=== PATIENT | female | born 1950 | race Caucasian/White ===

== ENCOUNTER → 2017-03-02 | Outpatient (CLI) | payer BC, OTHER ==
[~2017-03-02] MED LIST: ALBU1AER9 PO; BIOT1CAP4 PO; CALCTAB65 PO; CMD5 PO; CYAN10002 IM; ERGO1CAP35 PO; HYDR1CAP85 PO; LPR25 PO; LPT/40 PO; MELA1TAB54 PO; METF1000 PO; PEDICHW50 PO; POLY IRON PO; PXL20 PO; SNG10 PO; TYL325X PO; ULT50X PO
[2017-03-02 18:07] LABS: THYROID STIMULATING HORMONE 3.87 uIu/ml (0.300-4.500)
== END | disposition home or self-care (01) ==
LOC: C.LABPBG 11:10
PROVIDERS: ATTEND Internal Medicine
DX: E05.90 Thyrotoxicosis, unspecified without thyrotoxic crisis or storm (principal)

== ENCOUNTER → 2017-03-09 | Outpatient (CLI) | payer BC, OTHER ==
[2017-03-09 16:58] LABS: PLATELET COUNT 284 K/uL (130-400); WHITE BLOOD COUNT 6.45 K/uL (4.8-10.8)
== END | disposition home or self-care (01) ==
LOC: C.LABPBG 11:20
PROVIDERS: ATTEND Internal Medicine
DX: E05.90 Thyrotoxicosis, unspecified without thyrotoxic crisis or storm (principal)

== ENCOUNTER → 2017-06-27 | Outpatient (CLI) | payer OTHER ==
[2017-06-27 12:42] LABS: BASO % 1.7 %; BASO ABS # 0.13 K/uL (0-0.2); COMPLETE YES; EOS % 2.5 %; HEMATOCRIT 30.5 % (37-47); IG% 0.1 %; LYMPH % 34.4 %; LYMPH ABS # 2.63 K/uL (1.2-3.4); MEAN CORPUSCULAR HEMOGLOBIN 30.1 pg (25-34); MEAN CORPUSCULAR HGB CONC 33.4 g/dl (32-36); MEAN PLATELET VOLUME 9.6 fL (7.4-10.4); MONO % 7.8 %; NEUT % 53.5 %; PLATELET COUNT 373 K/uL (130-400); RED BLOOD COUNT 3.39 M/uL (4.2-5.4); WHITE BLOOD COUNT 7.65 K/uL (4.8-10.8)
[2017-06-27 15:24] LABS: ALT/SGPT 35 U/L (12-78); AST/SGOT 49 U/L (15-37); BLOOD UREA NITROGEN 11 mg/dl (7-18); BUN/CREATININE RATIO 7.7 (10-20); CALCIUM 8.3 mg/dl (8.5-10.1); CARBON DIOXIDE 31 mmol/L (21-32); CHLORIDE 101 mmol/L (98-107); CREATININE 1.43 mg/dl (0.60-1.20); GLUCOSE 63 mg/dl (70-99); POTASSIUM 3.7 mmol/L (3.5-5.1); SODIUM 137 mmol/L (136-145)
== END ==
LOC: C.LAB1850 11:24
PROVIDERS: ATTEND Physician Assistant
DX: I48.91 Unspecified atrial fibrillation (principal); E78.00 Pure hypercholesterolemia, unspecified; I10 Essential (primary) hypertension; E11.9 Type 2 diabetes mellitus without complications; R07.89 Other chest pain; R60.9 Edema, unspecified; Z79.01 Long term (current) use of anticoagulants

== ENCOUNTER → 2017-07-10 | Outpatient (CLI) | payer OTHER ==
[2017-07-10 12:55] LABS: BLOOD UREA NITROGEN 13 mg/dl (7-18); BUN/CREATININE RATIO 12.9 (10-20); CALCIUM 8.1 mg/dl (8.5-10.1); CARBON DIOXIDE 34 mmol/L (21-32); CHLORIDE 101 mmol/L (98-107); CREATININE 0.97 mg/dl (0.60-1.20); GLUCOSE 77 mg/dl (70-99); POTASSIUM 3.5 mmol/L (3.5-5.1); SODIUM 137 mmol/L (136-145)
== END | disposition home or self-care (01) ==
LOC: C.LABPBG 10:31
PROVIDERS: ATTEND Physician Assistant
DX: R60.9 Edema, unspecified (principal)

== ENCOUNTER → 2017-07-13 | Outpatient (CLI) | payer OTHER ==
[~2017-07-13] MED LIST changes: +ACET-1693 PO; +CALCTAB7 PO; +CMD10 PO; +CRFL PO; +CYNI1000 IM; +ERGO500037 PO; +FURO-85 PO; +HYDR-3126 PO; +MISCCAP80 PO; +MONT1TAB3 PO; +MULT-506 PO; +OMEP40CA41 PO; +OXYC-609 PO; +SPIR25TA PO; +TEMA15CA4 PO; +TPRSR25 PO; +VNTHFA/IN INH; +WARF5TAB7 PO; +ZINC1TAB PO
--- NOTE | 2017-07-13 14:46 | DIAGNOSTIC IMAGING REPORT ---
CT HEAD WITHOUT CONTRAST (CT) CLINICAL HISTORY: W19.XXXA head pain status post trauma. Right-sided bruising. COMPARISON STUDY: 06/25/2014 TECHNIQUE: Axial CT of the brain is performed from the vertex to the skull base. IV contrast was not administered for this examination. A dose lowering technique was utilized adhering to the principles of ALARA. CT DOSE: 638.56 mGycm FINDINGS: No intra or extra-axial mass lesions are visualized. There is no CT evidence of acute cortical infarction. There is no evidence of midline shift. There is no acute hemorrhage. No calvarial fractures are visualized. There are minimal white matter hypodensities likely on a small vessel basis. There is no evidence of pathologic ventricular dilatation. There is no evidence of acute sinusitis. There is mild right periorbital edema. IMPRESSION: 1. Mild right periorbital edema 2. No acute intracranial findings. Electronically signed by: Prashanth Watkins M.D. 07/13/2017 2:44 PM Dictated Date/Time: 07/13/2017 2:42 PM
== END | disposition home or self-care (01) ==
LOC: C.CTS 14:22
PROVIDERS: ATTEND Physician Assistant
DX: H05.221 Edema of right orbit (principal); W19.XXXA Unspecified fall, initial encounter

== ENCOUNTER → 2017-08-02 | Outpatient (CLI) | payer OTHER ==
[~2017-08-02] MED LIST changes: -ACET-1693 PO; -CALCTAB7 PO; -CMD10 PO; -CRFL PO; -CYNI1000 IM; -ERGO500037 PO; -FURO-85 PO; -HYDR-3126 PO; -MISCCAP80 PO; -MONT1TAB3 PO; -MULT-506 PO; -OMEP40CA41 PO; -OXYC-609 PO; -SPIR25TA PO; -TEMA15CA4 PO; -TPRSR25 PO; -VNTHFA/IN INH; -WARF5TAB7 PO; -ZINC1TAB PO
[2017-08-02 18:17] LABS: BLOOD UREA NITROGEN 14 mg/dl (7-18); BUN/CREATININE RATIO 12.1 (10-20); CALCIUM 8.4 mg/dl (8.5-10.1); CARBON DIOXIDE 33 mmol/L (21-32); CHLORIDE 100 mmol/L (98-107); CREATININE 1.14 mg/dl (0.60-1.20); GLUCOSE 70 mg/dl (70-99); POTASSIUM 3.2 mmol/L (3.5-5.1); SODIUM 138 mmol/L (136-145)
== END | disposition home or self-care (01) ==
LOC: C.LABPBG 10:58
PROVIDERS: ATTEND Physician Assistant
DX: R60.9 Edema, unspecified (principal)

== ENCOUNTER → 2017-08-14 | Outpatient (CLI) | payer OTHER ==
[~2017-08-14] MED LIST changes: +REGADENOSON 0.4 MG/5 ML SYR ONE
[2017-08-14 12:31] LABS: ALBUMIN 2.9 gm/dl (3.4-5.0); ALT/SGPT 45 U/L (12-78); AST/SGOT 50 U/L (15-37); BLOOD UREA NITROGEN 15 mg/dl (7-18); CALCIUM 8.6 mg/dl (8.5-10.1); CARBON DIOXIDE 35 mmol/L (21-32); CREATININE 1.23 mg/dl (0.60-1.20); GLUCOSE 83 mg/dl (70-99); POTASSIUM 3.4 mmol/L (3.5-5.1); SODIUM 139 mmol/L (136-145)
[2017-08-14 12:42] LABS: ALKALINE PHOSPHATASE 70 U/L (45-117); TOTAL PROTEIN 5.8 gm/dl (6.4-8.2)
--- NOTE | 2017-08-15 15:22 | MYOCARDIAL PERFUSION SCAN ---
ONE-DAY NUCLEAR MEDICINE TECHNETIUM-99M CARDIOLITE MYOCARDIAL PERFUSION SCAN CLINICAL HISTORY: This stress test is being performed because of a chest pain syndrome. COMPARISON: None. TECHNIQUE: TECHNIQUE: For the stress portion of the study, 32.2 mCi of Technetium 99 m Cardiolite IV was injected at 2:00 p.m. on 08/14/2017. Thirty minutes following the injection, imaging of the heart was performed in multiple projection. For the rest portion of the study, 10.7 mCi of Technetium 99 m Cardiolite was injected IV at 12:10 p.m. One hour following the injection, imaging of the heart was performed in the same projections. For the stress portion of the study, 0.4 mg of Lexiscan was injected intravenously as per protocol. The patient did not experience chest discomfort nor EKG changes. Following the study, the patient was hemodynamically stable without complaints. FINDINGS: The short axis, vertical long axis, and horizontal long axis images were reviewed in detail. There is normal myocardial perfusion at both stress and rest. This excludes a prior myocardial infarction and evidence of stress induced myocardial ischemia. Left ventricle demonstrates hyperdynamic systolic function with an ejection fraction of 72%. There are no wall motion abnormalities. CONCLUSIONS: 1. No scintigraphic evidence of a prior myocardial infarction or stress induced myocardial ischemia. 2. No Lexiscan induced chest pain. 3. No Lexiscan induced echocardiogram changes. 4. Hyperdynamic left ventricular systolic function without wall motion abnormality. Left ventricular ejection fraction is 72%.
== END | disposition home or self-care (01) ==
LOC: C.NUCL 11:13
PROVIDERS: ATTEND Physician Assistant
DX: E78.00 Pure hypercholesterolemia, unspecified (principal); I11.0 Hypertensive heart disease with heart failure; R60.9 Edema, unspecified; R07.89 Other chest pain; I50.32 Chronic diastolic (congestive) heart failure

== ENCOUNTER → 2017-08-23 | Outpatient (CLI) | payer OTHER ==
[~2017-08-23] MED LIST changes: -REGADENOSON 0.4 MG/5 ML SYR ONE
[2017-08-23 18:40] LABS: BLOOD UREA NITROGEN 20 mg/dl (7-18); CALCIUM 8.9 mg/dl (8.5-10.1); CARBON DIOXIDE 33 mmol/L (21-32); CREATININE 1.29 mg/dl (0.60-1.20); GLUCOSE 87 mg/dl (70-99); POTASSIUM 3.1 mmol/L (3.5-5.1); SODIUM 137 mmol/L (136-145)
== END | disposition home or self-care (01) ==
LOC: C.LABPBG 11:25
PROVIDERS: ATTEND Physician Assistant
DX: I50.32 Chronic diastolic (congestive) heart failure (principal)

== ENCOUNTER → 2017-08-30 | Outpatient (CLI) | payer OTHER ==
[2017-08-30 12:58] LABS: BLOOD UREA NITROGEN 22 mg/dl (7-18); CALCIUM 9.2 mg/dl (8.5-10.1); CARBON DIOXIDE 35 mmol/L (21-32); CREATININE 1.33 mg/dl (0.60-1.20); GLUCOSE 82 mg/dl (70-99); POTASSIUM 3.1 mmol/L (3.5-5.1); SODIUM 138 mmol/L (136-145)
== END | disposition home or self-care (01) ==
LOC: C.LABPBG 10:45
PROVIDERS: ATTEND Physician Assistant
DX: I50.32 Chronic diastolic (congestive) heart failure (principal)

== ENCOUNTER → 2017-09-06 | Outpatient (CLI) | payer OTHER ==
[2017-09-06 13:00] LABS: BLOOD UREA NITROGEN 26 mg/dl (7-18); CARBON DIOXIDE 34 mmol/L (21-32); CREATININE 1.57 mg/dl (0.60-1.20); GLUCOSE 87 mg/dl (70-99); POTASSIUM 3.4 mmol/L (3.5-5.1); SODIUM 138 mmol/L (136-145)
== END | disposition home or self-care (01) ==
LOC: C.LABPBG 08:22
PROVIDERS: ATTEND Physician Assistant
DX: I50.32 Chronic diastolic (congestive) heart failure (principal)

== ENCOUNTER 2017-09-16 13:36 | Inpatient (IN) | payer OTHER ==
[~2017-09-16] VITALS: Ht 157.5 cm; Wt 71.9 kg
[2017-09-16] MEDS ORDERED: SODIUM CHLORIDE 0.9% 1000ML 1,000 ML IV STA (14:59)
[2017-09-16] MEDS ORDERED: ONDANSETRON INJ 2 MG/ML 2 ML VIAL IV STA (14:59)
[2017-09-16] MEDS ORDERED: MoRPHine SULFATE 10 MG/ML CARP/VIAL IV STA (15:00)
[2017-09-16] MEDS ORDERED: OPTIRAY 320 IV PRN (15:15)
[2017-09-16] MEDS ORDERED: CALCTAB7 PO (15:20)
[2017-09-16] MEDS ORDERED: OXYC-609 PO (15:20)
[2017-09-16] MEDS ORDERED: FURO-85 PO (15:20)
[2017-09-16] MEDS ORDERED: WARF5TAB7 PO ×2 (15:20)
[2017-09-16] MEDS ORDERED: TEMA15CA4 PO (15:20)
[2017-09-16] MEDS ORDERED: CYNI1000 IM (15:20)
[2017-09-16] MEDS ORDERED: SPIR25TA PO (15:20)
[2017-09-16] MEDS ORDERED: OMEP40CA41 PO (15:20)
[2017-09-16] MEDS ORDERED: MULT-506 PO (15:20)
[2017-09-16] MEDS ORDERED: ACET-1693 PO (15:20)
[2017-09-16] MEDS ORDERED: MISCCAP80 PO (15:20)
[2017-09-16] MEDS ORDERED: ZINC1TAB PO (15:20)
[2017-09-16] MEDS ORDERED: MONT1TAB3 PO (15:20)
[2017-09-16] MEDS ORDERED: CRFL PO (15:20)
[2017-09-16] MEDS ORDERED: VNTHFA/IN INH (15:20)
[2017-09-16] MEDS ORDERED: HYDR-3126 PO (15:20)
[2017-09-16] MEDS ORDERED: ERGO500037 PO (15:20)
[2017-09-16 15:24] LABS: BASO % 0.1 %; BASO ABS # 0.01 K/uL (0-0.2); HEMATOCRIT 36.2 % (37-47); IG# 0.05 K/uL (0.00-0.02); LYMPH % 13.4 %; LYMPH ABS # 1.84 K/uL (1.2-3.4); MEAN CORPUSCULAR HEMOGLOBIN 28.8 pg (25-34); MEAN CORPUSCULAR HGB CONC 33.1 g/dl (32-36); MEAN PLATELET VOLUME 9.3 fL (7.4-10.4); MONO % 4.5 %; MONO ABS # 0.62 K/uL (0.11-0.59); NEUT % 81.6 %; NEUT ABS # 11.18 K/uL (1.4-6.5); PLATELET COUNT 321 K/uL (130-400); RED CELL DISTRIBUTION WIDTH SD 44.3 fL (36.4-46.3)
[2017-09-16 15:50] LABS: ALBUMIN 3.3 gm/dl (3.4-5.0); CALCIUM 8.8 mg/dl (8.5-10.1); CREATININE 1.25 mg/dl (0.60-1.20); POTASSIUM 4.1 mmol/L (3.5-5.1)
[2017-09-16 15:53] LABS: TOTAL PROTEIN 6.9 gm/dl (6.4-8.2)
--- NOTE | 2017-09-16 16:45 | DIAGNOSTIC IMAGING REPORT ---
ABD/PELVIS IV CONTRAST ONLY CT DOSE: 343.72 mGy.cm HISTORY: Pain diffuse abd pain previous gastric byopass TECHNIQUE: Multiaxial CT images of the abdomen and pelvis were performed following the use of intravenous contrast. A dose lowering technique was utilized adhering to the principles of ALARA. COMPARISON STUDY: None. FINDINGS: Trace amount pleural fluid both lung bases. Lung bases otherwise are clear. Liver is uniform in terms of enhancement. The kidneys enhance uniformly. Spleen is unremarkable. There are findings of a prior gastric bypass type procedure. There is mild gastric distention. There is distention of the small bowel extending to a region of edematous and/or postoperative change along the anterior abdominal wall inferior to the umbilicus. There is no evidence for well-defined hernia although the possibility of adhesions must be considered. The more distal aspect of the small bowel shows mild hyperemia which may be indicative of a nonspecific enteritis. It does not appear to be distended. Colon is relatively collapsed. There may be a trace amount of free fluid within the pelvic cul-de-sac and to a lesser extent paracolic gutter regions. There does not appear to be evidence for a vascular rotational anomaly. Bladder is midline. IMPRESSION: 1. Findings consistent with distal small bowel obstruction. 2. Distention of the small bowel proximal to the region of obstruction near the anterior wall of the soft tissue pelvis. 3. Edematous change of the anterior abdominal wall raising the possibility of adhesions or a small nonvisualized fat-containing hernia. This region is specifically anterior to the symphysis pubis and slightly left lateral in location. 4. Trace pleural fluid both lung bases. 5. Findings consistent with a gastric bypass type procedure. Mild/moderate gastric distention. The above report was generated using voice recognition software. It may contain grammatical, syntax or spelling errors. Electronically signed by: Sean Tejeda M.D. 09/16/2017 4:44 PM Dictated Date/Time: 09/16/2017 4:39 PM
[2017-09-16] MEDS ORDERED: TPRSR25 PO (17:23)
[2017-09-16] MEDS ORDERED: hydrOXYzine HCL 25 MG TAB PO PRN (17:30)
[2017-09-16] MEDS ORDERED: ALBUTEROL HFA 8 GM INHALER INH PRN (17:30)
[2017-09-16] MEDS ORDERED: METOPROLOL TARTRATE 1 MG/ML VIAL IV PRN (17:30)
[2017-09-16] MEDS ORDERED: ACETAMINOPHEN 325 MG TAB PO PRN (17:30)
--- NOTE | 2017-09-16 17:53 | DIAGNOSTIC IMAGING REPORT ---
KUB CLINICAL HISTORY: NG tube placement tube position COMPARISON STUDY: No previous studies for comparison. FINDINGS: Nasogastric tube placed in the gastric fundus. IMPRESSION: Nasogastric tube placed in the gastric fundus. The above report was generated using voice recognition software. It may contain grammatical, syntax or spelling errors. Electronically signed by: Sean Tejeda M.D. 09/16/2017 5:52 PM Dictated Date/Time: 09/16/2017 5:51 PM
--- NOTE | 2017-09-16 17:55 | History and Physical ---
History & Physical Date & Time of Service: Sep 16, 2017 at 17:14 Chief Complaint: Dehydrated Primary Care Physician: Adrian Leung M.D. History of Present Illness Source: patient Ms. Wood is a 67 year old woman here for sbo. She was having severe belly pain last Sunday and then she was unable to eat much. She tried miralax feeling like she was constipated with some success. She then became unable to eat and started vomiting in the last few days. She has never had a history of sbo in the past. She has recently had trouble swallowing and was to see GI in [place] soon to follow up with this. ROS Constitutional: no chills, aches, sweats or fever Respiratory: no sob,cough, sputum, or wheezing Cardiac: no chest pain, palpitations, edema, orthopnea or lightheadedness GI: no abdominal pain, nausea, vomiting, diarrhea or constipation : no dysuria or hesitancy Extremities: no joint pain or weakness Skin: no rash All other systems reviewed and negative Past Medical/Surgical History PMH: History of marginal peptic ulcers Permanent atrial fibrillation Long-term anticoagulation with Coumadin History of thyroid nodule now status post partial thyroidectomy Asthma Diabetes mellitus type 2 Hypertension Hyperlipidemia Chronic diastolic CHF CKD stage II-III Anxiety disorder NOS B12 deficiency Iron deficiency anemia-has received IV iron infusions Insomnia PSH: S/P knee replacement Gastric bypass Partial thyroidectomy Family History Cancer Diabetes mellitus Social History Smoking Status: Never Smoker Alcohol Use: none Drug Use: none Marital Status: Housing status: lives with significant other 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) Immunizations History of Influenza Vaccine: Yes History of Tetanus Vaccine?: No History of Pneumococcal: Yes History of Hepatitis B Vaccine: No Allergies Coded Allergies: Amoxicillin (Verified Allergy, Intermediate, RASH, 07/23/14) Clavulanic Acid (Verified Allergy, Intermediate, RASH, 07/23/14) Ibuprofen (Verified Allergy, Mild, ITCHING, 07/23/14) Penicillins (Verified Allergy, Mild, ITCHING, 07/23/14) Home Medications Scheduled Atorvastatin (Lipitor), 40 MG PO DAILY Biotin (Biotin), 1 CAP PO DAILY Calcium Carbonate-Vitamin D W/ (Caltrate 600 Plus), 1 TAB PO BID Cyanocobalamin (Cyanocobalamin), 1 ML IM MONTHLY Ergocalciferol (Vitamin D 13822 Unit), 50,000 UNIT PO WK Furosemide (Lasix), 20 MG PO DAILY Metformin Hcl (Glucophage), 1,000 MG PO HS Metoprolol Succinate (Metoprolol Succinate ER), 25 MG PO DAILY Montelukast Sodium (Singulair), 10 MG PO DAILY Multivitamin (Multivitamin), 1 TAB PO DAILY Omeprazole (Prilosec), 40 MG PO BID Paroxetine (Paroxetine HCl), 30 MG PO DAILY Probiotic Product (Probiotic), 1 CAP PO DAILY Spironolactone (Aldactone), 25 MG PO DAILY Sucralfate (Carafate), 10 ML PO QID Temazepam (Restoril), 15 MG PO HS Warfarin Sod (Jantoven), 7.5 MG PO 5XWK Warfarin Sod (Jantoven), 10 MG PO 2XWK Zinc Gluconate (Zinc), 50 MG PO DAILY Scheduled PRN Acetaminophen Tab (Tylenol), 650 MG PO Q4H PRN for Pain Albuterol Hfa (Ventolin Hfa), 2 PUFFS INH Q6H PRN for Shortness of Breath Hydroxyzine Hcl (Atarax), 50 MG PO TID PRN for Anxiety Oxycodone HCl (Oxycodone HCl), 5 MG PO QID PRN for Pain Physical Exam Vital Signs Date Time Temp Pulse Resp B/P (MAP) Pulse Ox O2 Delivery O2 Flow Rate FiO2 09/16/17 15:27 79 16 112/78 97 09/16/17 13:57 36.2 105 20 125/77 96 Room Air General: no distress Eyes: normal inspection, PERLL Respiratory: chest non tender, clear to auscultation, normal breath sounds, no respiratory distress, no accessory muscle use Cardiac: irregular rate and rhythm, no rub or gallop, no murmur, no edema, no jvd GI/: active tympanic bowel sounds, tender to palpation,firm, distended Extremities: normal range of motion, normal strength, non tender Neuro/Psych: alert and oriented x 3, normal mood and affect Skin: normal color, dry Diagnostics Laboratory Results Results Past 24 Hours Test 09/16/17 15:15 Range/Units White Blood Count 13.70 4.8-10.8 K/uL Red Blood Count 4.16 4.2-5.4 M/uL Hemoglobin 12.0 12.0-16.0 g/dL Hematocrit 36.2 37-47 % Mean Corpuscular Volume 87.0 80-100 fL Mean Corpuscular Hemoglobin 28.8 25-34 pg Mean Corpuscular Hemoglobin Concent 33.1 32-36 g/dl Platelet Count 321 130-400 K/uL Mean Platelet Volume 9.3 7.4-10.4 fL Neutrophils (%) (Auto) 81.6 % Lymphocytes (%) (Auto) 13.4 % Monocytes (%) (Auto) 4.5 % Eosinophils (%) (Auto) 0.0 % Basophils (%) (Auto) 0.1 % Neutrophils # (Auto) 11.18 1.4-6.5 K/uL Lymphocytes # (Auto) 1.84 1.2-3.4 K/uL Monocytes # (Auto) 0.62 0.11-0.59 K/uL Eosinophils # (Auto) 0.00 0-0.5 K/uL Basophils # (Auto) 0.01 0-0.2 K/uL RDW Standard Deviation 44.3 36.4-46.3 fL RDW Coefficient of Variation 14.0 11.5-14.5 % Immature Granulocyte % (Auto) 0.4 % Immature Granulocyte # (Auto) 0.05 0.00-0.02 K/uL Sodium Level 133 136-145 mmol/L Potassium Level 4.1 3.5-5.1 mmol/L Chloride Level 95 98-107 mmol/L Carbon Dioxide Level 29 21-32 mmol/L Anion Gap 9.0 3-11 mmol/L Blood Urea Nitrogen 39 7-18 mg/dl Creatinine 1.25 0.60-1.20 mg/dl Est Creatinine Clear Calc Drug Dose 42.3 ml/min Estimated GFR () 51.9 Estimated GFR (Non- 44.8 BUN/Creatinine Ratio 31.1 10-20 Random Glucose 151 70-99 mg/dl Calcium Level 8.8 8.5-10.1 mg/dl Total Bilirubin 1.1 0.2-1 mg/dl Direct Bilirubin 0.5 0-0.2 mg/dl Aspartate Amino Transf (AST/SGOT) 22 15-37 U/L Alanine Aminotransferase (ALT/SGPT) 21 12-78 U/L Alkaline Phosphatase 75 45-117 U/L Total Protein 6.9 6.4-8.2 gm/dl Albumin 3.3 3.4-5.0 gm/dl Lipase 136 73-393 U/L Diagnostic Radiology [~ rep ct add3]] ABD/PELVIS IV CONTRAST ONLY CT DOSE: 343.72 mGy.cm HISTORY: Pain diffuse abd pain previous gastric byopass TECHNIQUE: Multiaxial CT images of the abdomen and pelvis were performed following the use of intravenous contrast. A dose lowering technique was utilized adhering to the principles of ALARA. COMPARISON STUDY: None. FINDINGS: Trace amount pleural fluid both lung bases. Lung bases otherwise are clear. Liver is uniform in terms of enhancement. The kidneys enhance uniformly. Spleen is unremarkable. There are findings of a prior gastric bypass type procedure. There is mild gastric distention. There is distention of the small bowel extending to a region of edematous and/or postoperative change along the anterior abdominal wall inferior to the umbilicus. There is no evidence for well-defined hernia although the possibility of adhesions must be considered. The more distal aspect of the small bowel shows mild hyperemia which may be indicative of a nonspecific enteritis. It does not appear to be distended. Colon is relatively collapsed. There may be a trace amount of free fluid within the pelvic cul-de-sac and to a lesser extent paracolic gutter regions. There does not appear to be evidence for a vascular rotational anomaly. Bladder is midline. IMPRESSION: 1. Findings consistent with distal small bowel obstruction. 2. Distention of the small bowel proximal to the region of obstruction near the anterior wall of the soft tissue pelvis. 3. Edematous change of the anterior abdominal wall raising the possibility of adhesions or a small nonvisualized fat-containing hernia. This region is specifically anterior to the symphysis pubis and slightly left lateral in location. 4. Trace pleural fluid both lung bases. 5. Findings consistent with a gastric bypass type procedure. Mild/moderate gastric distention. Impression Assessment and Plan Ms. Wood is a 67 year old woman here for sbo SBO - admit med/surg - consult gen surg - NG tube to low intermittent suction, NPO - pain control - IVF nss @75 ml/hr A.fib - per outpatient records, this is permanent A.fib - hold warfarin until seen by gen surg - may need reversed if she needs surgery - metoprolol IV prn while npo if hr not controlled. - INR, mag, phos pending Chronic diastolic chf - hold lasix for now while npo DMII - held metformin - ss, bsg ac &hs Asthma - continue home albuterol Full code SCDs Advanced Directives Existing Advance Directive: No Existing Living Will: No Existing Power of Fresh Work Inspector: No Resuscitation Status FULL RESUSCITATION Reviewed: Pt Seen/Exam by Me History PLANNER INTERN Supervision Note: I interviewed and examined the patient. Discussed with TWILA Richards and agree with findings and plan as documented in the note. Any exceptions or clarifications are listed here: This patient is a 67-year-old female with a history of gastric bypass surgery, marginal peptic ulcer disease, iron deficiency anemia, chronic diastolic CHF, hypertension, dyslipidemia, permanent atrial fibrillation on Coumadin, CKD stage II-III, diabetes mellitus type 2, who presents with burning central abdominal pain along with significant nausea, but not able to vomit. She has not passed flatus. She was found to have distal SBO on CT of the abdomen and pelvis. She reports her symptoms have been coming and going like this more prominently in the last week, but this has happened off and on in the last year. She had her gastric bypass surgery done at [facility] in [place] 10 years ago. She had an NG tube placed in the ER and is starting to feel a little bit better at the time of my exam. Of note, she was due to have a Pimentel device placed in her esophagus in 2 weeks which is for pH monitoring. Vitals reviewed, is mildly tachycardic Gen: AAOx3, appears ill, but is sitting up on the side of the bed HEENT: anicteric sclerae, EOMI CV: Irregularly irregular and tachycardic, no mgr nl S1S2 Pulm: CTAB no wcr Abd: + Hyperactive BS, soft, positive tenderness to palpation in the periumbilical and epigastric regions without guarding or rebound tenderness, ND , no masses or hernias palpable Ext: no edema, 2+ DP pulses Skin: no rashes, warm/dry Neuro: full strength throughout This patient is a 67-year-old female with a history of gastric bypass surgery, marginal peptic ulcer disease, iron deficiency anemia, chronic diastolic CHF, hypertension, dyslipidemia, permanent atrial fibrillation on Coumadin, CKD stage II-III, diabetes mellitus type 2, who presents with SBO. Given her history of gastric bypass, she could have an internal hernia causing her obstruction -Appreciate general surgery consultation-surgeon on-call was contacted by the ER doctor and is aware of the consult -Continue NG tube to low intermittent suction -Will discontinue all home p.o. medications -we will replace her beta-michael with IV metoprolol for rate control of her A. fib -Hold Coumadin in case of need for surgery, checked INR which is at 1.5 now and will follow again in the morning-she recently took a higher dose of Coumadin for a subtherapeutic INR 2 days ago -Change nightly temazepam p.o. to IV lorazepam to avoid withdrawal, change Protonix to IV especially given history of peptic ulcer disease -Follow CBC and suspect her hemoglobin will drop back to baseline around 10 after IV fluids -Continue IV fluids at 75/h and watch for hypervolemia given history of chronic diastolic CHF, holding home diuretics -SCDs for DVT prophylaxis Documented By: Stephanie Rodriguez
[2017-09-16 18:16] LABS: INR 1.5 (0.9-1.1)
[2017-09-16] MEDS ORDERED: LORAZEPAM 2 MG/ML 1 ML VIAL IV PRN (18:30)
[2017-09-16 18:32] LABS: PHOSPHORUS 4.7 mg/dl (2.5-4.9)
--- NOTE | 2017-09-16 19:21 | EMERGENCY ROOM VISIT NOTE ---
History Report prepared by Rosalind: Adam Keita Under the Supervision of: Dr. Burak Gillis D.O. First contact with patient: 14:37 Chief Complaint: ABDOMINAL PAIN Stated Complaint: DEHYDRATED Nursing Triage Summary: pateint with abdominal pain nausea and lack of appetite for a week. states she has not had a good bowel movment for a while. only small liquid stool. dry heaves and chills History of Present Illness The patient is a 67 year old female who presents to the Emergency Room with complaints of worsening sharp diffuse abdominal pain that began about 1 week ago. She rates her pain a 6/10 in severity. She has a past medical history of a gastric bypass and a complete hysterectomy. When her pain began, she thought that she was constipated. She took Miralax and a Dulcolax and was able to pass some gas which made her feel better. However, her pain then worsened throughout the week. She believes that her pain moved from the top of her abdomen down to her lower abdomen. She is currently nauseated and has been dry heaving without any true vomiting. She also has been having a lessened appetite, having not eaten in three days. She states that she is able to pass stool, but they have been softer than usual without any true diarrhea. Pt denies headache, change in vision, fevers, chest pain, shortness of breath, pain with urination, and melena. Source of History: patient Onset: 1 week ago Position: abdomen (diffuse) Symptom Intensity: 6/10 Quality: sharp Timing: worsening Associated Symptoms: + nausea, No fevers, No headache, No chest pain, No SOB , No vomiting, No melena, No diarrhea, No urinary symptoms Review of Systems See HPI for pertinent positives & negatives. A total of 10 systems reviewed and were otherwise negative. Past Medical & Surgical Medical Problems: (1) A-fib (2) Afib (3) Asthma (4) DM (diabetes mellitus) (5) HTN (hypertension) (6) SBO (small bowel obstruction) Surgical Problems: (1) S/P knee replacement Family History Cancer Diabetes mellitus Social History Smoking Status: Never Smoker Alcohol Use: none Drug Use: none Marital Status: Housing Status: lives with family Occupation Status: retired Current/Historical Medications Scheduled Atorvastatin (Lipitor), 40 MG PO DAILY Biotin (Biotin), 1 CAP PO DAILY Calcium Carbonate-Vitamin D W/ (Caltrate 600 Plus), 1 TAB PO BID Cyanocobalamin (Cyanocobalamin), 1 ML IM MONTHLY Ergocalciferol (Vitamin D 66282 Unit), 50,000 UNIT PO WK Furosemide (Lasix), 20 MG PO DAILY Metformin Hcl (Glucophage), 1,000 MG PO HS Metoprolol Succinate (Metoprolol Succinate ER), 25 MG PO DAILY Montelukast Sodium (Singulair), 10 MG PO DAILY Multivitamin (Multivitamin), 1 TAB PO DAILY Omeprazole (Prilosec), 40 MG PO BID Paroxetine (Paroxetine HCl), 30 MG PO DAILY Probiotic Product (Probiotic), 1 CAP PO DAILY Spironolactone (Aldactone), 25 MG PO DAILY Sucralfate (Carafate), 10 ML PO QID Temazepam (Restoril), 15 MG PO HS Warfarin Sod (Jantoven), 7.5 MG PO 5XWK Warfarin Sod (Jantoven), 10 MG PO 2XWK Zinc Gluconate (Zinc), 50 MG PO DAILY Scheduled PRN Acetaminophen Tab (Tylenol), 650 MG PO Q4H PRN for Pain Albuterol Hfa (Ventolin Hfa), 2 PUFFS INH Q6H PRN for Shortness of Breath Hydroxyzine Hcl (Atarax), 50 MG PO TID PRN for Anxiety Oxycodone HCl (Oxycodone HCl), 5 MG PO QID PRN for Pain Allergies Coded Allergies: Amoxicillin (Verified Allergy, Intermediate, RASH, 07/23/14) Clavulanic Acid (Verified Allergy, Intermediate, RASH, 07/23/14) Ibuprofen (Verified Allergy, Mild, ITCHING, 07/23/14) Penicillins (Verified Allergy, Mild, ITCHING, 07/23/14) Physical Exam Vital Signs Date Time Temp Pulse Resp B/P (MAP) Pulse Ox O2 Delivery O2 Flow Rate FiO2 09/16/17 18:54 102 18 108/85 95 09/16/17 17:26 93 09/16/17 17:19 89 18 129/81 94 Room Air 09/16/17 15:27 79 16 112/78 97 09/16/17 13:57 36.2 105 20 125/77 96 Room Air Physical Exam GENERAL: Sitting up in bed, alert, chronically ill appearing, well nourished, no distress, non-toxic EYE EXAM: normal conjunctiva. OROPHARYNX: no exudate, no erythema, lips, buccal mucosa, and tongue normal and mucous membranes are moist NECK: supple, no nuchal rigidity, no adenopathy, non-tender LUNGS: Clear to auscultation. Normal chest wall mechanics HEART: Tachycardic rate, regular rhythm, no murmurs, S1 normal and S2 normal ABDOMEN: abdomen soft, diffuse mild tenderness, normo-active bowel sounds, no masses, no rebound or guarding. RECTAL: Heme negative brown stool. BACK: Back is symmetrical on inspection and there is no deformity, no midline tenderness, no CVA tenderness. SKIN: no rashes and no bruising UPPER EXTREMITIES: upper extremities are grossly normal. LOWER EXTREMITIES: No pitting edema. NEURO EXAM: Normal sensorium, cranial nerves II-XII grossly intact, normal speech, no gross weakness of arms, no gross weakness of legs. Medical Decision & Procedures ER Provider Diagnostic Interpretation: Radiology results as stated below per my review and the radiologist's interpretation: ABD/PELVIS IV CONTRAST ONLY CT DOSE: 343.72 mGy.cm HISTORY: Pain diffuse abd pain previous gastric byopass TECHNIQUE: Multiaxial CT images of the abdomen and pelvis were performed following the use of intravenous contrast. A dose lowering technique was utilized adhering to the principles of ALARA. COMPARISON STUDY: None. FINDINGS: Trace amount pleural fluid both lung bases. Lung bases otherwise are clear. Liver is uniform in terms of enhancement. The kidneys enhance uniformly. Spleen is unremarkable. There are findings of a prior gastric bypass type procedure. There is mild gastric distention. There is distention of the small bowel extending to a region of edematous and/or postoperative change along the anterior abdominal wall inferior to the umbilicus. There is no evidence for well-defined hernia although the possibility of adhesions must be considered. The more distal aspect of the small bowel shows mild hyperemia which may be indicative of a nonspecific enteritis. It does not appear to be distended. Colon is relatively collapsed. There may be a trace amount of free fluid within the pelvic cul-de-sac and to a lesser extent paracolic gutter regions. There does not appear to be evidence for a vascular rotational anomaly. Bladder is midline. IMPRESSION: 1. Findings consistent with distal small bowel obstruction. 2. Distention of the small bowel proximal to the region of obstruction near the anterior wall of the soft tissue pelvis. 3. Edematous change of the anterior abdominal wall raising the possibility of adhesions or a small nonvisualized fat-containing hernia. This region is specifically anterior to the symphysis pubis and slightly left lateral in location. 4. Trace pleural fluid both lung bases. 5. Findings consistent with a gastric bypass type procedure. Mild/moderate gastric distention. The above report was generated using voice recognition software. It may contain grammatical, syntax or spelling errors. Electronically signed by: Sena Tejeda M.D. 09/16/2017 4:44 PM Dictated Date/Time: 09/16/2017 4:39 PM Laboratory Results 09/16/17 15:15 Red Blood Count 4.16, Mean Corpuscular Volume 87.0, Mean Corpuscular Hemoglobin 28.8, Mean Corpuscular Hemoglobin Concent 33.1, Mean Platelet Volume 9.3, Neutrophils (%) (Auto) 81.6, Lymphocytes (%) (Auto) 13.4, Monocytes (%) (Auto) 4.5, Eosinophils (%) (Auto) 0.0, Basophils (%) (Auto) 0.1, Neutrophils # (Auto) 11.18, Lymphocytes # (Auto) 1.84, Monocytes # (Auto) 0.62, Eosinophils # (Auto) 0.00, Basophils # (Auto) 0.01 09/16/17 15:15 Test 09/16/17 15:15 White Blood Count 13.70 K/uL (4.8-10.8) Red Blood Count 4.16 M/uL (4.2-5.4) Hemoglobin 12.0 g/dL (12.0-16.0) Hematocrit 36.2 % (37-47) Mean Corpuscular Volume 87.0 fL (80-100) Mean Corpuscular Hemoglobin 28.8 pg (25-34) Mean Corpuscular Hemoglobin Concent 33.1 g/dl (32-36) Platelet Count 321 K/uL (130-400) Mean Platelet Volume 9.3 fL (7.4-10.4) Neutrophils (%) (Auto) 81.6 % Lymphocytes (%) (Auto) 13.4 % Monocytes (%) (Auto) 4.5 % Eosinophils (%) (Auto) 0.0 % Basophils (%) (Auto) 0.1 % Neutrophils # (Auto) 11.18 K/uL (1.4-6.5) Lymphocytes # (Auto) 1.84 K/uL (1.2-3.4) Monocytes # (Auto) 0.62 K/uL (0.11-0.59) Eosinophils # (Auto) 0.00 K/uL (0-0.5) Basophils # (Auto) 0.01 K/uL (0-0.2) RDW Standard Deviation 44.3 fL (36.4-46.3) RDW Coefficient of Variation 14.0 % (11.5-14.5) Immature Granulocyte % (Auto) 0.4 % Immature Granulocyte # (Auto) 0.05 K/uL (0.00-0.02) Prothrombin Time 15.2 SECONDS (9.0-12.0) Prothromb Time International Ratio 1.5 (0.9-1.1) Anion Gap 9.0 mmol/L (3-11) Est Creatinine Clear Calc Drug Dose 42.3 ml/min Estimated GFR () 51.9 Estimated GFR (Non- 44.8 BUN/Creatinine Ratio 31.1 (10-20) Calcium Level 8.8 mg/dl (8.5-10.1) Phosphorus Level 4.7 mg/dl (2.5-4.9) Magnesium Level 1.6 mg/dl (1.8-2.4) Total Bilirubin 1.1 mg/dl (0.2-1) Direct Bilirubin 0.5 mg/dl (0-0.2) Aspartate Amino Transf (AST/SGOT) 22 U/L (15-37) Alanine Aminotransferase (ALT/SGPT) 21 U/L (12-78) Alkaline Phosphatase 75 U/L (45-117) Total Protein 6.9 gm/dl (6.4-8.2) Albumin 3.3 gm/dl (3.4-5.0) Lipase 136 U/L (73-393) Laboratory results per my review. Medications Administered Medications (Trade) Dose Ordered Sig/Taiwo Route Start Time Stop Time Status Last Admin Dose Admin Sodium Chloride 1,000 ml @ 999 mls/hr Q1H1M STAT IV 09/16/17 14:59 09/16/17 15:59 DC 2/11/18 15:25 999 MLS/HR Ondansetron HCl (Zofran Inj) 4 mg NOW STAT IV 09/16/17 14:59 09/16/17 15:01 DC 09/16/17 15:25 4 MG Morphine Sulfate (MoRPHine SULFATE INJ) 6 mg NOW STAT IV 09/16/17 15:00 09/16/17 15:01 DC 09/16/17 15:26 6 MG ED Course ED COURSE: Vital signs were reviewed and showed tachycardia The patients medical record was reviewed The above diagnostic studies were performed and reviewed. ED treatments and interventions as stated above. 1437: The patient was evaluated in room C9. A complete history and physical examination was performed. 1459: Ordered Zofran Inj 4 mg IV, Sodium Chloride 1000 ml @ 999 mls/hr IV 1500: Ordered Morphine Sulfate 6 mg IV 1702: Upon reevaluation, the patient is resting. I discussed my findings with the patient and she understands and agrees with the treatment plan. Based on the patients age, coexisting illnesses, exam and lab findings the decision to treat as an inpatient was made. The patient remained stable while under my care. The patient will be evaluated by Dr. Michael PONCE, for further management. Medical Decision Differential diagnoses includes but is not limited to gastritis, peptic ulcer disease, GERD, gallbladder disease, pancreatitis, small bowel obstruction, acute coronary syndrome, pericarditis, ischemic bowel, irritable bowel disease, irritable bowel syndrome, appendicitis, diverticulitis, malignancy, hernia, urinary tract infection, torsion, perforation, trauma, infectious. Patient is a 67-year-old female who presents to ER for abdominal pain which has been worsening since this past Sunday. Abdomen is distended. She does have diffuse tenderness. Labs show a mild leukocytosis. CT of the abdomen and pelvis shows distal small bowel obstruction. Discussed these findings with general surgery and internal medicine. NG tube was placed. KUB confirmed. Patient was given multiple doses of IV narcotics. Patient was admitted to internal medicine for further workup. Medication Reconcilliation Current Medication List: was personally reviewed by me Blood Pressure Screening Patient's blood pressure: Normal blood pressure Blood pressure disposition: Did not require urgent referral Consults Time Called: 1700 Consulting Physician: Dr. Michael PONCE Returned Call: 1702 I reviewed the patient's case with her. She will evaluate the patient for further management. Impression Primary Impression: Small bowel obstruction Scribe Attestation The scribe's documentation has been prepared under my direction and personally reviewed by me in its entirety. I confirm that the note above accurately reflects all work, treatment, procedures, and medical decision making performed by me. Departure Information Dispostion Being Evaluated By Hospitalist Prescriptions Metoprolol Succinate (Metoprolol Succinate ER) 25 Mg Tabcr 25 MG PO DAILY for 30 Days, #30 DOSE Prov: Thania Richards .TWILA 09/16/17 Referrals Adrian Leung M.D. (PCP) Patient Instructions My [facility]
[2017-09-16] MEDS ORDERED: MoRPHine SULFATE 4 MG/ML 1 ML CARP\\VIAL ONE (19:32)
[2017-09-16 20:05] VITALS: BP 126/76; PULSE 105; TEMP 36.9; O2SAT 95; Ht 157.5 cm; Wt 71.9 kg
[2017-09-16] MEDS ORDERED: INSULIN ASPART 100 UNITS/ML 3 ML PEN SC SCH (21:00)
[2017-09-16] MEDS ORDERED: TEMAZEPAM 15 MG CAP PO SCH (21:00)
[2017-09-16] MEDS ORDERED: SUCRALFATE 1 GM/10 ML UDC PO SCH (21:00)
[2017-09-16] MEDS ORDERED: NON-FORMULARY MEDICATION (Omeprazole (Prilosec) 40 MG) PO SCH (21:00)
[2017-09-16] MEDS ORDERED: CALCIUM 600MG + VIT D 400 IU TAB PO SCH (21:00)
[2017-09-16] MEDS: SODIUM CHLORIDE 0.9% 1000ML 1,000 ML IV SCH (21:28)
[2017-09-16] MEDS: PANTOprazole INJ 40 MG in SYRINGE 0 ML IV SCH (21:29)
[2017-09-16] MEDS ORDERED: NURSING DECISION MEDICATION ORDER SCH (23:30)
[2017-09-16] MEDS: MoRPHine SULFATE 2 MG/ML CARP IV PRN (23:35)
[2017-09-16] MEDS: METOPROLOL TARTRATE 1 MG/ML VIAL IV. SCH (23:36)
[2017-09-16] MEDS: INSULIN ASPART 100 UNITS/ML 3 ML PEN SC SCH (23:48)
[2017-09-17] VITALS (10 sets, daily range): BP systolic 100–146; BP diastolic 62–81; PULSE 74–118; TEMP 36.4–36.9; O2SAT 94–98
[2017-09-17] MEDS: MAGNESIUM SULFATE 1GM / D5W 1 GM in PREMIXED IN D5W 100 ML IV SCH ×2 (01:30→02:39)
[2017-09-17] MEDS: INSULIN ASPART 100 UNITS/ML 3 ML PEN SC SCH ×3 (05:59→18:00)
[2017-09-17] MEDS: METOPROLOL TARTRATE 1 MG/ML VIAL IV. SCH ×2 (06:00→12:28)
[2017-09-17] MEDS: MoRPHine SULFATE 2 MG/ML CARP IV PRN ×4 (06:07→21:21)
[2017-09-17 07:17] LABS: HEMATOCRIT 31.9 % (37-47); HEMOGLOBIN 10.6 g/dL (12.0-16.0); MEAN CELL VOLUME 86.7 fL (80-100); MEAN CORPUSCULAR HEMOGLOBIN 28.8 pg (25-34); MEAN CORPUSCULAR HGB CONC 33.2 g/dl (32-36); MEAN PLATELET VOLUME 9.7 fL (7.4-10.4); PLATELET COUNT 343 K/uL (130-400); RED CELL DISTRIBUTION WIDTH CV 14.1 % (11.5-14.5); RED CELL DISTRIBUTION WIDTH SD 44.6 fL (36.4-46.3); WHITE BLOOD COUNT 9.86 K/uL (4.8-10.8)
[2017-09-17 07:30] LABS: INR 1.5 (0.9-1.1)
[2017-09-17 07:46] LABS: CALCIUM 8.4 mg/dl (8.5-10.1); CREATININE 1.02 mg/dl (0.60-1.20); POTASSIUM 3.7 mmol/L (3.5-5.1)
[2017-09-17 07:49] LABS: PHOSPHORUS 3.9 mg/dl (2.5-4.9)
[2017-09-17] MEDS: PANTOprazole INJ 40 MG in SYRINGE 0 ML IV SCH (08:03)
[2017-09-17] MEDS ORDERED: NON-FORMULARY MEDICATION (Zinc Gluconate (Zinc) 50 MG) PO SCH (09:00)
[2017-09-17] MEDS ORDERED: MONTELUKAST SOD 10 MG TAB PO SCH ×2 (09:00→21:00)
[2017-09-17] MEDS ORDERED: ERGOCALCIFEROL 50,000 INTER.UNIT CAP PO SCH (09:00)
[2017-09-17] MEDS ORDERED: MULTIVITAMIN TAB PO SCH (09:00)
[2017-09-17] MEDS ORDERED: WARFARIN SOD 5 MG TAB PO SCH ×2 (09:00)
[2017-09-17] MEDS ORDERED: NON-FORMULARY MEDICATION (Probiotic Product (Probiotic) 1 CAP) PO SCH (09:00)
[2017-09-17] MEDS ORDERED: METOPROLOL SUCC 25MG EXT REL TAB PO SCH (09:00)
[2017-09-17] MEDS ORDERED: SPIRONOLACTONE 25 MG TAB PO SCH (09:00)
[2017-09-17] MEDS ORDERED: FUROSEMIDE 20 MG TAB PO SCH (09:00)
[2017-09-17] MEDS ORDERED: ATORVASTATIN 20 MG TAB PO SCH (09:00)
[2017-09-17] MEDS ORDERED: PAROXETINE 20 MG TAB PO SCH (09:00)
[2017-09-17 09:22] LABS: HEMOGLOBIN A1C 5.6 % (4.5-5.6)
--- NOTE | 2017-09-17 10:14 | Hospitalist Progress Note ---
Hospitalist Progress Note Date of Service Sep 17, 2017. Subjective Pt evaluation today including: conversation w/ patient, physical exam, chart review, review of inpatient medication list Voiding: no voiding problems Ms. Wood is feeling much better than yesterday. NG tube in place. Incontinent of large liquid bm early this morning. Abdomen dye range tender but less than yesterday. ROS Constitutional: no chills, aches, sweats or fever Respiratory: no sob,cough, sputum, or wheezing Cardiac: no chest pain, palpitations, edema, orthopnea or lightheadedness GI: see HPI : no dysuria or hesitancy Extremities: no joint pain or weakness Skin: no rash All other systems reviewed and negative Medications Medications (Trade) Dose Ordered Sig/Taiwo Route Start Time Stop Time Status Last Admin Dose Admin Sodium Chloride 1,000 ml @ 999 mls/hr Q1H1M STAT IV 09/16/17 14:59 09/16/17 15:59 DC 09/16/17 15:25 999 MLS/HR Ondansetron HCl (Zofran Inj) 4 mg NOW STAT IV 09/16/17 14:59 09/16/17 15:01 DC 09/16/17 15:25 4 MG Morphine Sulfate (MoRPHine SULFATE INJ) 6 mg NOW STAT IV 09/16/17 15:00 09/16/17 15:01 DC 09/16/17 15:26 6 MG Morphine Sulfate (MoRPHine SULFATE INJ) 2 mg Q4H PRN IV 09/16/17 17:45 09/30/17 17:44 09/17/17 06:07 2 MG Sodium Chloride 1,000 ml @ 75 mls/hr [id number] IV 09/16/17 22:00 10/16/17 21:59 09/16/17 21:28 75 MLS/HR Metoprolol Tartrate (Lopressor Iv) 5 mg Q6 IV. 09/17/17 00:00 10/17/17 00:00 09/17/17 06:00 5 MG Lorazepam (Ativan Inj) 1 mg HS PRN IV 09/16/17 18:30 10/16/17 18:29 09/16/17 21:40 1 MG Pantoprazole Sodium 40 mg/ Syringe 10 ml @ 5 mls/min DAILY@ IV 09/16/17 21:00 10/16/17 20:59 09/17/17 08:03 5 MLS/MIN Morphine Sulfate (MoRPHine SULFATE INJ) 4 mg STK-MED ONCE .ROUTE 09/16/17 19:32 09/16/17 19:33 DC 09/16/17 19:36 4 MG Magnesium Sulfate 1 gm/Prmx 100 ml @ 100 mls/hr Q1H IV 09/17/17 00:45 09/17/17 02:44 DC 09/17/17 02:39 100 MLS/HR Objective Vital Signs Date Time Temp Pulse Resp B/P (MAP) Pulse Ox O2 Delivery O2 Flow Rate FiO2 09/17/17 08:04 36.4 87 17 100/62 (75) 95 Room Air 09/17/17 08:00 96 Room Air 09/17/17 06:00 82 109/73 09/17/17 04:00 Room Air 09/17/17 03:47 36.9 118 18 110/73 (85) 96 09/17/17 00:05 36.9 118 18 146/81 (102) 97 Room Air 09/16/17 23:59 Room Air 09/16/17 23:36 118 146/81 09/16/17 20:05 36.9 105 20 126/76 95 Room Air 09/16/17 19:54 85 20 121/59 95 09/16/17 19:50 36.9 91 22 122/72 95 Room Air 09/16/17 18:54 102 18 108/85 95 09/16/17 17:26 93 09/16/17 17:19 89 18 129/81 94 Room Air 09/16/17 15:27 79 16 112/78 97 09/16/17 13:57 36.2 105 20 125/77 96 Room Air Physical Exam Notes: General: no distress Eyes: normal inspection, PERLL Respiratory: chest non tender, clear to auscultation, normal breath sounds, no respiratory distress, no accessory muscle use Cardiac: regular rate and rhythm, no rub or gallop, no murmur, no edema, no jvd GI/: active tympanic bowel sounds, mild tenderness, softer than yesterday but still some distention Extremities: normal range of motion, normal strength, non tender Neuro/Psych: alert and oriented x 3, normal mood and affect Skin: normal color, dry Laboratory Results Last 24 Hours Test 09/16/17 15:15 09/16/17 20:46 09/16/17 23:34 09/16/17 23:45 White Blood Count 13.70 K/uL Red Blood Count 4.16 M/uL Hemoglobin 12.0 g/dL Hematocrit 36.2 % Mean Corpuscular Volume 87.0 fL Mean Corpuscular Hemoglobin 28.8 pg Mean Corpuscular Hemoglobin Concent 33.1 g/dl Platelet Count 321 K/uL Mean Platelet Volume 9.3 fL Neutrophils (%) (Auto) 81.6 % Lymphocytes (%) (Auto) 13.4 % Monocytes (%) (Auto) 4.5 % Eosinophils (%) (Auto) 0.0 % Basophils (%) (Auto) 0.1 % Neutrophils # (Auto) 11.18 K/uL Lymphocytes # (Auto) 1.84 K/uL Monocytes # (Auto) 0.62 K/uL Eosinophils # (Auto) 0.00 K/uL Basophils # (Auto) 0.01 K/uL RDW Standard Deviation 44.3 fL RDW Coefficient of Variation 14.0 % Immature Granulocyte % (Auto) 0.4 % Immature Granulocyte # (Auto) 0.05 K/uL Prothrombin Time 15.2 SECONDS Prothromb Time International Ratio 1.5 Sodium Level 133 mmol/L Potassium Level 4.1 mmol/L Chloride Level 95 mmol/L Carbon Dioxide Level 29 mmol/L Anion Gap 9.0 mmol/L Blood Urea Nitrogen 39 mg/dl Creatinine 1.25 mg/dl Est Creatinine Clear Calc Drug Dose 42.3 ml/min Estimated GFR () 51.9 Estimated GFR (Non- 44.8 BUN/Creatinine Ratio 31.1 Random Glucose 151 mg/dl Calcium Level 8.8 mg/dl Phosphorus Level 4.7 mg/dl Magnesium Level 1.6 mg/dl Total Bilirubin 1.1 mg/dl Direct Bilirubin 0.5 mg/dl Aspartate Amino Transf (AST/SGOT) 22 U/L Alanine Aminotransferase (ALT/SGPT) 21 U/L Alkaline Phosphatase 75 U/L Total Protein 6.9 gm/dl Albumin 3.3 gm/dl Lipase 136 U/L Bedside Glucose 132 mg/dl 112 mg/dl Urine Color YELLOW Urine Appearance CLEAR Urine pH 5.0 Urine Specific Champion > 1.045 Urine Protein TRACE Urine Glucose (UA) NEG Urine Ketones 1+ Urine Occult Blood NEG Urine Nitrite NEG Urine Bilirubin NEG Urine Urobilinogen NEG Urine Leukocyte Esterase NEG Urine WBC (Auto) 1-5 /hpf Urine RBC (Auto) 0-4 /hpf Urine Hyaline Casts (Auto) 0 /lpf Urine Epithelial Cells (Auto) 10-20 /lpf Urine Bacteria (Auto) NEG Test 09/17/17 05:58 09/17/17 06:23 Bedside Glucose 115 mg/dl White Blood Count 9.86 K/uL Red Blood Count 3.68 M/uL Hemoglobin 10.6 g/dL Hematocrit 31.9 % Mean Corpuscular Volume 86.7 fL Mean Corpuscular Hemoglobin 28.8 pg Mean Corpuscular Hemoglobin Concent 33.2 g/dl RDW Standard Deviation 44.6 fL RDW Coefficient of Variation 14.1 % Platelet Count 343 K/uL Mean Platelet Volume 9.7 fL Prothrombin Time 15.9 SECONDS Prothromb Time International Ratio 1.5 Sodium Level 138 mmol/L Potassium Level 3.7 mmol/L Chloride Level 101 mmol/L Carbon Dioxide Level 27 mmol/L Anion Gap 10.0 mmol/L Blood Urea Nitrogen 39 mg/dl Creatinine 1.02 mg/dl Est Creatinine Clear Calc Drug Dose 51.4 ml/min Estimated GFR () 66.4 Estimated GFR (Non- 57.3 BUN/Creatinine Ratio 37.9 Random Glucose 104 mg/dl Estimated Average Glucose 114 mg/dl Hemoglobin A1c 5.6 % Calcium Level 8.4 mg/dl Phosphorus Level 3.9 mg/dl Magnesium Level 2.1 mg/dl Assessment and Plan Ms. Wood is a 67 year old woman here for sbo SBO - consult gen surg - NG tube to low intermittent suction - putting out small amount - dc'd per surgery recommendation - changed to npo x sips and meds for now - pain under good control - continue prn analgesics - continue IVF nss @75 ml/hr A.fib - per outpatient records, this is permanent A.fib - A.fib over the night rate controlled - continue metoprolol - INR subtherapeutic at 1.5 - restarted coumadin today per surgical recommendation Chronic diastolic chf - restart lasix DMII - held metformin - ss, bsg ac &hs Asthma - continue home albuterol Full code SCDs
--- NOTE | 2017-09-17 11:10 | Surgery Consultation ---
Consultation Date of Consultation: Sep 17, 2017. Attending Physician: Nickolas Sahu M.D. History of Present Illness Ms. Wood is a 67 year old woman here for sbo. She was having severe belly pain last Sunday and then she was unable to eat much. She tried miralax feeling like she was constipated with some success. She then became unable to eat and started vomiting in the last few days. She has never had a history of sbo in the past. She has recently had trouble swallowing and was to see GI in [place] soon to follow up with this. I saw pt at bedside, I reviewed pt's H/P with pt, pt feels much better, passed gas and BM this morning, pt denies abdominal pain, no nausea, no vomiting, pt had gastric bypass in 2009, Past Medical/Surgical History Medical Problems: (1) Small bowel obstruction Status: Acute Family History Cancer Diabetes mellitus Social History Smoking Status: Never Smoker Smokeless Tobacco Use: No Alcohol Use: none Drug Use: none Marital Status: Housing Status: lives with family Occupation Status: retired Allergies Coded Allergies: Amoxicillin (Verified Allergy, Intermediate, RASH, 07/23/14) Clavulanic Acid (Verified Allergy, Intermediate, RASH, 07/23/14) Ibuprofen (Verified Allergy, Mild, ITCHING, 07/23/14) Penicillins (Verified Allergy, Mild, ITCHING, 07/23/14) Home Medications Scheduled Atorvastatin (Lipitor), 40 MG PO DAILY Biotin (Biotin), 1 CAP PO DAILY Calcium Carbonate-Vitamin D W/ (Caltrate 600 Plus), 1 TAB PO BID Cyanocobalamin (Cyanocobalamin), 1 ML IM MONTHLY Ergocalciferol (Vitamin D 46345 Unit), 50,000 UNIT PO WK Furosemide (Lasix), 20 MG PO DAILY Metformin Hcl (Glucophage), 1,000 MG PO HS Metoprolol Succinate (Metoprolol Succinate ER), 25 MG PO DAILY Montelukast Sodium (Singulair), 10 MG PO DAILY Multivitamin (Multivitamin), 1 TAB PO DAILY Omeprazole (Prilosec), 40 MG PO BID Paroxetine (Paroxetine HCl), 30 MG PO DAILY Probiotic Product (Probiotic), 1 CAP PO DAILY Spironolactone (Aldactone), 25 MG PO DAILY Sucralfate (Carafate), 10 ML PO QID Temazepam (Restoril), 15 MG PO HS Warfarin Sod (Jantoven), 7.5 MG PO 5XWK Warfarin Sod (Jantoven), 10 MG PO 2XWK Zinc Gluconate (Zinc), 50 MG PO DAILY Scheduled PRN Acetaminophen Tab (Tylenol), 650 MG PO Q4H PRN for Pain Albuterol Hfa (Ventolin Hfa), 2 PUFFS INH Q6H PRN for Shortness of Breath Hydroxyzine Hcl (Atarax), 50 MG PO TID PRN for Anxiety Oxycodone HCl (Oxycodone HCl), 5 MG PO QID PRN for Pain Current Inpatient Medications Current Inpatient Medications Medications (Trade) Dose Ordered Sig/Taiwo Route Start Time Stop Time Status Last Admin Dose Admin Ioversol (Optiray 320) 100 ml UD PRN IV 09/16/17 15:15 09/20/17 15:14 Albuterol (Ventolin Hfa Inhaler) 2 puffs Q6H PRN INH 09/16/17 17:30 10/16/17 17:29 Metoprolol Tartrate (Lopressor Iv) 5 mg Q4 PRN IV 09/16/17 17:30 10/16/17 17:29 Morphine Sulfate (MoRPHine SULFATE INJ) 2 mg Q4H PRN IV 09/16/17 17:45 09/30/17 17:44 09/17/17 06:07 2 MG Sodium Chloride 1,000 ml @ 75 mls/hr [id number] IV 09/16/17 22:00 10/16/17 21:59 09/16/17 21:28 75 MLS/HR Metoprolol Tartrate (Lopressor Iv) 5 mg Q6 IV. 09/17/17 00:00 10/17/17 00:00 09/17/17 06:00 5 MG Lorazepam (Ativan Inj) 1 mg HS PRN IV 09/16/17 18:30 10/16/17 18:29 09/16/17 21:40 1 MG Pantoprazole Sodium 40 mg/ Syringe 10 ml @ 5 mls/min DAILY@09,21 IV 09/16/17 21:00 10/16/17 20:59 09/17/17 08:03 5 MLS/MIN Insulin Aspart (novoLOG ASPART) SLIDING SCALE If C... Q6 SC 09/17/17 00:00 10/17/17 00:00 Review of Systems Constitutional: No fever, No chills, No sweats, No weight loss, No weakness, No fatigue, No problem reported Eyes: No worsening of vision, No eye pain, No redness, No discharge, No diplopia, No problem reported ENT: No hearing loss, No unusual epistaxis, No nasal symptoms, No sore throat, No tinnitus, No dental problems, No trouble swallowing, No problem reported Respiratory: No cough, No sputum, No wheezing, No shortness of breath, No dyspnea on exertion, No dyspnea at rest, No hemoptysis, No problem reported Cardiovascular: No chest pain, No orthopnea, No PND, No edema, No claudication , No palpitations, No problem reported Abdomen: + pain, + nausea, + problem reported (gastric bypass surgery in 2009) Musculoskeletal: No joint pain, No muscle pain, No swelling, No calf pain, No problem reported Genitourinary - Female: No dysuria, No urinary frequency, No urinary urgency, No urinary incontinence, No urinary retention, No hematuria, No dysmenorrhea, No menorrhagia, No metrorrhagia, No rash, No vaginal bleeding, No vaginal discharge, No vaginal itching, No vulvodynia, No , No problem reported Neurologic: No memory loss, No paralysis, No weakness, No numbness/tingling, No vertigo, No balance problems, No problem reported Psychiatric: No depression symptoms, No anhedonism, No anxiety, No insomnia, No substance abuse, No problem reported Endocrine: No fatigue, No excessive thirst, No excessive urination, No problem reported Hematologic / Lymphatic: No abnormal bleeding/bruising, No clotting problems, No swollen lymph nodes, No night sweats, No problem reported Physical Exam Date Time Temp Pulse Resp B/P (MAP) Pulse Ox O2 Delivery O2 Flow Rate FiO2 09/17/17 08:04 36.4 87 17 100/62 (75) 95 Room Air 09/17/17 08:00 96 Room Air 09/17/17 06:00 82 109/73 09/17/17 04:00 Room Air 09/17/17 03:47 36.9 118 18 110/73 (85) 96 2/12/18 00:05 36.9 118 18 146/81 (102) 97 Room Air 09/16/17 23:59 Room Air 09/16/17 23:36 118 146/81 09/16/17 20:05 36.9 105 20 126/76 95 Room Air 09/16/17 19:54 85 20 121/59 95 09/16/17 19:50 36.9 91 22 122/72 95 Room Air 09/16/17 18:54 102 18 108/85 95 09/16/17 17:26 93 09/16/17 17:19 89 18 129/81 94 Room Air 09/16/17 15:27 79 16 112/78 97 09/16/17 13:57 36.2 105 20 125/77 96 Room Air General Appearance: WD/WN, no apparent distress Head: normocephalic Eyes: normal inspection ENT: normal ENT inspection Neck: supple, no JVD Respiratory/Chest: chest non-tender, lungs clear Cardiovascular: regular rate, rhythm, no edema, no gallop, no JVD Abdomen/GI: normal bowel sounds, non tender, soft, no organomegaly, no pulsatile mass Extremities/Musculoskelatal: normal inspection, no calf tenderness, normal capillary refill Neurologic/Psych: no motor/sensory deficits, alert, normal mood/affect Skin: normal color, warm/dry, no rash Laboratory Results Last 24 Hours Test 09/16/17 15:15 09/16/17 20:46 09/16/17 23:34 09/16/17 23:45 White Blood Count 13.70 K/uL Red Blood Count 4.16 M/uL Hemoglobin 12.0 g/dL Hematocrit 36.2 % Mean Corpuscular Volume 87.0 fL Mean Corpuscular Hemoglobin 28.8 pg Mean Corpuscular Hemoglobin Concent 33.1 g/dl Platelet Count 321 K/uL Mean Platelet Volume 9.3 fL Neutrophils (%) (Auto) 81.6 % Lymphocytes (%) (Auto) 13.4 % Monocytes (%) (Auto) 4.5 % Eosinophils (%) (Auto) 0.0 % Basophils (%) (Auto) 0.1 % Neutrophils # (Auto) 11.18 K/uL Lymphocytes # (Auto) 1.84 K/uL Monocytes # (Auto) 0.62 K/uL Eosinophils # (Auto) 0.00 K/uL Basophils # (Auto) 0.01 K/uL RDW Standard Deviation 44.3 fL RDW Coefficient of Variation 14.0 % Immature Granulocyte % (Auto) 0.4 % Immature Granulocyte # (Auto) 0.05 K/uL Prothrombin Time 15.2 SECONDS Prothromb Time International Ratio 1.5 Sodium Level 133 mmol/L Potassium Level 4.1 mmol/L Chloride Level 95 mmol/L Carbon Dioxide Level 29 mmol/L Anion Gap 9.0 mmol/L Blood Urea Nitrogen 39 mg/dl Creatinine 1.25 mg/dl Est Creatinine Clear Calc Drug Dose 42.3 ml/min Estimated GFR () 51.9 Estimated GFR (Non- 44.8 BUN/Creatinine Ratio 31.1 Random Glucose 151 mg/dl Calcium Level 8.8 mg/dl Phosphorus Level 4.7 mg/dl Magnesium Level 1.6 mg/dl Total Bilirubin 1.1 mg/dl Direct Bilirubin 0.5 mg/dl Aspartate Amino Transf (AST/SGOT) 22 U/L Alanine Aminotransferase (ALT/SGPT) 21 U/L Alkaline Phosphatase 75 U/L Total Protein 6.9 gm/dl Albumin 3.3 gm/dl Lipase 136 U/L Bedside Glucose 132 mg/dl 112 mg/dl Urine Color YELLOW Urine Appearance CLEAR Urine pH 5.0 Urine Specific Tow > 1.045 Urine Protein TRACE Urine Glucose (UA) NEG Urine Ketones 1+ Urine Occult Blood NEG Urine Nitrite NEG Urine Bilirubin NEG Urine Urobilinogen NEG Urine Leukocyte Esterase NEG Urine WBC (Auto) 1-5 /hpf Urine RBC (Auto) 0-4 /hpf Urine Hyaline Casts (Auto) 0 /lpf Urine Epithelial Cells (Auto) 10-20 /lpf Urine Bacteria (Auto) NEG Test 09/17/17 05:58 09/17/17 06:23 Bedside Glucose 115 mg/dl White Blood Count 9.86 K/uL Red Blood Count 3.68 M/uL Hemoglobin 10.6 g/dL Hematocrit 31.9 % Mean Corpuscular Volume 86.7 fL Mean Corpuscular Hemoglobin 28.8 pg Mean Corpuscular Hemoglobin Concent 33.2 g/dl RDW Standard Deviation 44.6 fL RDW Coefficient of Variation 14.1 % Platelet Count 343 K/uL Mean Platelet Volume 9.7 fL Prothrombin Time 15.9 SECONDS Prothromb Time International Ratio 1.5 Sodium Level 138 mmol/L Potassium Level 3.7 mmol/L Chloride Level 101 mmol/L Carbon Dioxide Level 27 mmol/L Anion Gap 10.0 mmol/L Blood Urea Nitrogen 39 mg/dl Creatinine 1.02 mg/dl Est Creatinine Clear Calc Drug Dose 51.4 ml/min Estimated GFR () 66.4 Estimated GFR (Non- 57.3 BUN/Creatinine Ratio 37.9 Random Glucose 104 mg/dl Estimated Average Glucose 114 mg/dl Hemoglobin A1c 5.6 % Calcium Level 8.4 mg/dl Phosphorus Level 3.9 mg/dl Magnesium Level 2.1 mg/dl Assessment & Plan CT scan-FINDINGS: Trace amount pleural fluid both lung bases. Lung bases otherwise are clear. Liver is uniform in terms of enhancement. The kidneys enhance uniformly. Spleen is unremarkable. There are findings of a prior gastric bypass type procedure. There is mild gastric distention. There is distention of the small bowel extending to a region of edematous and/or postoperative change along the anterior abdominal wall inferior to the umbilicus. There is no evidence for well-defined hernia although the possibility of adhesions must be considered. The more distal aspect of the small bowel shows mild hyperemia which may be indicative of a nonspecific enteritis. It does not appear to be distended. Colon is relatively collapsed. There may be a trace amount of free fluid within the pelvic cul-de-sac and to a lesser extent paracolic gutter regions. There does not appear to be evidence for a vascular rotational anomaly. Bladder is midline. IMPRESSION: 1. Findings consistent with distal small bowel obstruction. 2. Distention of the small bowel proximal to the region of obstruction near the anterior wall of the soft tissue pelvis. 3. Edematous change of the anterior abdominal wall raising the possibility of adhesions or a small nonvisualized fat-containing hernia. This region is specifically anterior to the symphysis pubis and slightly left lateral in location. 4. Trace pleural fluid both lung bases. 5. Findings consistent with a gastric bypass type procedure. Mild/moderate gastric distention. Assessment: pt is a 67 yo female who was admitted to hospital for SBO, pt is doing better, passed gas and BM, D/C NG tube, resume coumadin, continue treatment, will F/U
[2017-09-17] MEDS: SODIUM CHLORIDE 0.9% 1000ML 1,000 ML IV SCH (12:28)
[2017-09-17] MEDS ORDERED: TEMAZEPAM 15 MG CAP PO PRN (14:00)
[2017-09-17] MEDS ORDERED: hydrOXYzine HCL 25 MG TAB PO PRN (14:00)
[2017-09-17] MEDS ORDERED: WARFARIN SOD 7.5 MG TAB PO SCH (14:00)
[2017-09-17] MEDS ORDERED: METOPROLOL SUCC 25MG EXT REL TAB PO ONE (14:30)
[2017-09-17] MEDS ORDERED: WARFARIN SOD 10 MG TAB PO SCH (16:00)
[2017-09-17] MEDS: SUCRALFATE 1 GM/10 ML UDC PO SCH ×2 (16:09→20:23)
[2017-09-17] MEDS: PANTOprazole SOD 40 MG TAB PO SCH (20:23)
[2017-09-18] MEDS: SODIUM CHLORIDE 0.9% 1000ML 1,000 ML IV SCH (01:07)
[2017-09-18 03:26] VITALS: BP 101/63; PULSE 72; TEMP 36.4; O2SAT 98
[2017-09-18 05:36] LABS: HEMATOCRIT 30.2 % (37-47); HEMOGLOBIN 9.8 g/dL (12.0-16.0); MEAN CELL VOLUME 87.5 fL (80-100); MEAN CORPUSCULAR HEMOGLOBIN 28.4 pg (25-34); MEAN CORPUSCULAR HGB CONC 32.5 g/dl (32-36); MEAN PLATELET VOLUME 9.2 fL (7.4-10.4); PLATELET COUNT 292 K/uL (130-400); RED CELL DISTRIBUTION WIDTH CV 13.9 % (11.5-14.5); WHITE BLOOD COUNT 6.39 K/uL (4.8-10.8)
[2017-09-18 05:49] LABS: INR 1.8 (0.9-1.1)
[2017-09-18] MEDS: INSULIN ASPART 100 UNITS/ML 3 ML PEN SC SCH ×3 (06:00→12:28)
[2017-09-18 06:01] LABS: CALCIUM 7.9 mg/dl (8.5-10.1); CREATININE 0.81 mg/dl (0.60-1.20); POTASSIUM 3.2 mmol/L (3.5-5.1)
[2017-09-18] MEDS: MoRPHine SULFATE 2 MG/ML CARP IV PRN ×2 (06:23→13:46)
[2017-09-18 07:07] VITALS: BP 104/62; PULSE 68; TEMP 36.4; O2SAT 97
[2017-09-18] MEDS ORDERED: POTASSIUM CHLORIDE 10 MEQ TABCR PO ONE (08:45)
[2017-09-18] MEDS ORDERED: METOPROLOL SUCC 25MG EXT REL TAB PO SCH (09:00)
[2017-09-18] MEDS ORDERED: PAROXETINE 30 MG TAB PO SCH (09:00)
[2017-09-18] MEDS ORDERED: SPIRONOLACTONE 25 MG TAB PO SCH (09:00)
[2017-09-18] MEDS ORDERED: ATORVASTATIN 40 MG TAB PO SCH (09:00)
[2017-09-18] MEDS ORDERED: FUROSEMIDE 20 MG TAB PO SCH (09:00)
[2017-09-18] MEDS: SUCRALFATE 1 GM/10 ML UDC PO SCH (09:10)
[2017-09-18] MEDS: PANTOprazole SOD 40 MG TAB PO SCH (09:14)
--- NOTE | 2017-09-18 09:28 | Surgery Progress Note ---
Surgery Progress Note Date of Service Sep 18, 2017. Subjective Post OP Day: HD # 2 + feeling well, + ambulating, + flatus, + pain controlled, No complaints, No nausea, No vomiting abdominal bloating and pressure has resolved tolerated water and ice chips yesterday Objective Vital Signs: Date Time Temp Pulse Resp B/P (MAP) Pulse Ox O2 Delivery O2 Flow Rate FiO2 09/18/17 08:00 Room Air 09/18/17 07:07 36.4 68 20 104/62 (76) 97 Room Air 09/18/17 04:30 Room Air 09/18/17 03:26 36.4 72 18 101/63 (76) 98 Room Air 09/18/17 00:02 Room Air 09/17/17 23:52 36.7 77 16 119/72 (88) 98 Room Air 09/17/17 20:23 Room Air 09/17/17 19:15 36.6 76 18 109/70 (83) 98 Room Air 09/17/17 16:00 94 Room Air 09/17/17 15:22 36.9 89 18 101/63 (76) 96 Room Air 09/17/17 12:28 74 110/68 09/17/17 12:00 95 Room Air 09/17/17 11:32 36.6 74 18 110/68 (82) 97 Room Air General Appearance: WD/WN, no apparent distress Head: normocephalic, atraumatic Neck: trachea midline Respiratory/Chest: no respiratory distress, no accessory muscle use Abdomen: non tender, non distended, soft, no organomegaly, no pulsatile mass Laboratory Results: Results Past 24 Hours Test 09/17/17 12:19 09/17/17 17:58 09/17/17 23:59 09/18/17 05:23 Range/Units Bedside Glucose 111 97 89 70-90 mg/dl White Blood Count 6.39 4.8-10.8 K/uL Red Blood Count 3.45 4.2-5.4 M/uL Hemoglobin 9.8 12.0-16.0 g/dL Hematocrit 30.2 37-47 % Mean Corpuscular Volume 87.5 80-100 fL Mean Corpuscular Hemoglobin 28.4 25-34 pg Mean Corpuscular Hemoglobin Concent 32.5 32-36 g/dl RDW Standard Deviation 45.0 36.4-46.3 fL RDW Coefficient of Variation 13.9 11.5-14.5 % Platelet Count 292 130-400 K/uL Mean Platelet Volume 9.2 7.4-10.4 fL Prothrombin Time 18.6 9.0-12.0 SECONDS Prothromb Time International Ratio 1.8 0.9-1.1 Sodium Level 139 136-145 mmol/L Potassium Level 3.2 3.5-5.1 mmol/L Chloride Level 104 98-107 mmol/L Carbon Dioxide Level 28 21-32 mmol/L Anion Gap 7.0 3-11 mmol/L Blood Urea Nitrogen 25 7-18 mg/dl Creatinine 0.81 0.60-1.20 mg/dl Est Creatinine Clear Calc Drug Dose 64.8 ml/min Estimated GFR () 87.7 Estimated GFR (Non- 75.7 BUN/Creatinine Ratio 31.2 10-20 Random Glucose 76 70-99 mg/dl Calcium Level 7.9 8.5-10.1 mg/dl Test 09/18/17 06:07 Range/Units Bedside Glucose 81 70-90 mg/dl Assessment & Plan Partial SBO- resolving -afebrile, no leukocytosis - abdominal pain minimal - no nausea or vomiting - + flatus, bm yesterday - abdomen soft, nondistended, nontender - hypokalemia Plan: Continue current pain management as needed, if does well with liquids consider PO pain medication prn advance diet to clear liquids, advised to take them slow and easy replace potassium will do one dose of miralax today encourage ambulation and OOB to chair Continue current medical management Dr. Prater has seen and examined patient, agrees with above
[2017-09-18] MEDS ORDERED: POLYETHYLENE (MIRALAX) 17 GM PACK PO ONE (09:30)
[2017-09-18 11:32] VITALS: BP 100/53; PULSE 92; TEMP 36.5; O2SAT 94
[2017-09-18] MEDS ORDERED: NURSING VERBAL MED ORDER ONE (12:00)
[2017-09-18] MEDS ORDERED: CMD10 PO (13:00)
--- NOTE | 2017-09-18 13:06 | Discharge Instructions ---
Discharge Instructions Date of Service Sep 18, 2017. Admission Reason for Admission: Sbo (Small Bowel Obstruction) Discharge Discharge Diagnosis / Problem: Small bowel obstruction Discharge Goals Goal(s): Decrease discomfort, Improve disease control Activity Recommendations Activity Limitations: resume your previous activity . Instructions / Follow-Up Instructions / Follow-Up Please advance your diet as tolerated from clear liquids to full liquids and then low fiber/low fat. You can then progress to your normal diet. Please recheck you INR tomorrow - your INR was 1.8 today so you are not quite therapeutic yet Please hold your metformin until tomorrow evening to prevent interaction with the dye you had for your CT scan Please follow up with your primary care provider within a week. Please follow up with your Coumadin clinic tomorrow concerning your INR after you check it at home. Current Hospital Diet Patient's current hospital diet: Clear Liquid Diet Discharge Diet Recommended Diet: Clear Liquid Diet Procedures Procedures Performed: Abdomen xray Abdomen CT Pending Studies Studies pending at discharge: no Laboratory Results Last 24 Hours Test 09/17/17 17:58 09/17/17 23:59 09/18/17 05:23 09/18/17 06:07 Bedside Glucose 97 mg/dl 89 mg/dl 81 mg/dl White Blood Count 6.39 K/uL Red Blood Count 3.45 M/uL Hemoglobin 9.8 g/dL Hematocrit 30.2 % Mean Corpuscular Volume 87.5 fL Mean Corpuscular Hemoglobin 28.4 pg Mean Corpuscular Hemoglobin Concent 32.5 g/dl RDW Standard Deviation 45.0 fL RDW Coefficient of Variation 13.9 % Platelet Count 292 K/uL Mean Platelet Volume 9.2 fL Prothrombin Time 18.6 SECONDS Prothromb Time International Ratio 1.8 Sodium Level 139 mmol/L Potassium Level 3.2 mmol/L Chloride Level 104 mmol/L Carbon Dioxide Level 28 mmol/L Anion Gap 7.0 mmol/L Blood Urea Nitrogen 25 mg/dl Creatinine 0.81 mg/dl Est Creatinine Clear Calc Drug Dose 64.8 ml/min Estimated GFR () 87.7 Estimated GFR (Non- 75.7 BUN/Creatinine Ratio 31.2 Random Glucose 76 mg/dl Calcium Level 7.9 mg/dl Hemoglobin A1c Test 09/17/17 06:23 Range/Units Estimated Average Glucose 114 mg/dl Hemoglobin A1c 5.6 4.5-5.6 % Medical Emergencies . Who to Call and When: Medical Emergencies: If at any time you feel your situation is an emergency, please call 911 immediately. . Non-Emergent Contact Non-Emergency issues call your: Primary Care Provider Call Non-Emergent contact if: you have a fever, your pain is not controlled, your pain is worsening . . "Provider Documentation" section prepared by Thania Richards. . VTE Core Measure Inpt VTE Proph given/why not?: Warfarin (Coumadin)
--- NOTE | 2017-09-18 13:22 | Discharge Summary ---
Discharge Summary Date of Service Sep 18, 2017. Discharge Summary Admission Date: Sep 16, 2017 at 17:54 Discharge Date: Sep 18, 2017 Discharge Disposition: Home Principal Diagnosis: Small bowel obstruction Problems/Secondary Diagnoses: A.fib, Chronic diastolic chf, DMII, Asthma Immunizations: Have You Had Influenza Vaccine: Yes History of Tetanus Vaccine?: No History of Pneumococcal: Yes History of Hepatitis B Vaccine: No Procedures: ABD/PELVIS IV CONTRAST ONLY CT DOSE: 343.72 mGy.cm HISTORY: Pain diffuse abd pain previous gastric byopass TECHNIQUE: Multiaxial CT images of the abdomen and pelvis were performed following the use of intravenous contrast. A dose lowering technique was utilized adhering to the principles of ALARA. COMPARISON STUDY: None. FINDINGS: Trace amount pleural fluid both lung bases. Lung bases otherwise are clear. Liver is uniform in terms of enhancement. The kidneys enhance uniformly. Spleen is unremarkable. There are findings of a prior gastric bypass type procedure. There is mild gastric distention. There is distention of the small bowel extending to a region of edematous and/or postoperative change along the anterior abdominal wall inferior to the umbilicus. There is no evidence for well-defined hernia although the possibility of adhesions must be considered. The more distal aspect of the small bowel shows mild hyperemia which may be indicative of a nonspecific enteritis. It does not appear to be distended. Colon is relatively collapsed. There may be a trace amount of free fluid within the pelvic cul-de-sac and to a lesser extent paracolic gutter regions. There does not appear to be evidence for a vascular rotational anomaly. Bladder is midline. IMPRESSION: 1. Findings consistent with distal small bowel obstruction. 2. Distention of the small bowel proximal to the region of obstruction near the anterior wall of the soft tissue pelvis. 3. Edematous change of the anterior abdominal wall raising the possibility of adhesions or a small nonvisualized fat-containing hernia. This region is specifically anterior to the symphysis pubis and slightly left lateral in location. 4. Trace pleural fluid both lung bases. 5. Findings consistent with a gastric bypass type procedure. Mild/moderate gastric distention. KUB CLINICAL HISTORY: NG tube placement tube position COMPARISON STUDY: No previous studies for comparison. FINDINGS: Nasogastric tube placed in the gastric fundus. IMPRESSION: Nasogastric tube placed in the gastric fundus. Consultations: Dr. Prater from general surgery Medication Reconciliation New Medications: Warfarin Sod (Coumadin) 10 Mg Tab 10 MG PO DAILY@1600 for 7 Days, #7 TAB Continued Medications: Acetaminophen Tab (Tylenol) 325 Mg Tab 650 MG PO Q4H PRN for Pain, TAB Albuterol Hfa (Ventolin Hfa) 200 Puffs/21528 Mcg Aers 2 PUFFS INH Q6H PRN for Shortness of Breath, #1 INHALER Atorvastatin (Lipitor) 40 Mg Tab 40 MG PO DAILY, TAB Biotin (Biotin) 2,500 Mcg Cap 1 CAP PO DAILY Calcium Carbonate-Vitamin D W/ (Caltrate 600 Plus) 1 Tab Tab 1 TAB PO BID, TAB Cyanocobalamin (Cyanocobalamin) 1,000 Mcg/Ml Inj 1 ML IM MONTHLY Ergocalciferol (Vitamin D 58280 Unit) 50,000 Unit Cap 30274 UNIT PO WK, CAP Furosemide (Lasix) 20 Mg Tab 20 MG PO DAILY, TAB Hydroxyzine Hcl (Atarax) 50 Mg Tab 50 MG PO TID PRN for Anxiety, TAB Metformin Hcl (Glucophage) 1,000 Mg Tab 1000 MG PO HS, TAB Metoprolol Succinate (Metoprolol Succinate ER) 25 Mg Tabcr 25 MG PO DAILY for 30 Days, #30 DOSE Montelukast Sodium (Singulair) 10 Mg Tab 10 MG PO DAILY, TAB Multivitamin (Multivitamin) Tab 1 TAB PO DAILY, TAB Omeprazole (Prilosec) 40 Mg Cap 40 MG PO BID, CAP Oxycodone HCl (Oxycodone HCl) 5 Mg Tab 5 MG PO QID PRN for Pain Paroxetine (Paroxetine HCl) 20 Mg Tab 30 MG PO DAILY Probiotic Product (Probiotic) 1 Cap Cap 1 CAP PO DAILY Spironolactone (Aldactone) 25 Mg Tab 25 MG PO DAILY, TAB Sucralfate (Carafate) 1 Gm/10 Ml Heidi 10 ML PO QID for 30 Days, #1200 ML Temazepam (Restoril) 15 Mg Cap 15 MG PO HS, CAP Zinc Gluconate (Zinc) 50 Mg Tab 50 MG PO DAILY Discontinued Medications: Warfarin Sod (Jantoven) 5 Mg Tab 7.5 MG PO 5XWK, TAB Warfarin Sod (Jantoven) 5 Mg Tab 10 MG PO 2XWK, TAB Discharge Exam ROS Constitutional: no chills, aches, sweats or fever Respiratory: no sob,cough, sputum, or wheezing Cardiac: no chest pain, palpitations, edema, orthopnea or lightheadedness GI: no abdominal pain, nausea, vomiting, diarrhea or constipation : no dysuria or hesitancy Extremities: no joint pain or weakness Skin: no rash All other systems reviewed and negative General: no distress Eyes: normal inspection, PERLL Respiratory: chest non tender, clear to auscultation, normal breath sounds, no respiratory distress, no accessory muscle use Cardiac: regular rate and rhythm, no rub or gallop, no murmur, no edema, no jvd GI/: active bowel sounds, no abd pain or tenderness, soft, non distended Extremities: normal range of motion, normal strength, non tender Neuro/Psych: alert and oriented x 3, normal mood and affect Skin: normal color, dry Hospital Course Ms. Wood is a 67 year old woman here for sbo. She was having severe belly pain last Sunday and then she was unable to eat much. She tried miralax feeling like she was constipated with some success. She then became unable to eat and started vomiting in the last few days. She has never had a history of sbo in the past. She has recently had trouble swallowing and was to see GI in [place] soon to follow up with this. SBO - consulted gen surg - no intervention warranted - NG tube to low intermittent suction overnight after admission and then removed - progressed to clear liquids which she is tolerating well. - pain under good control - continue prn analgesics - advance diet as tolerated after discharge - discussed for quite a while how to progress through clear, full and then low fiber diet and back to her normal diet A.fib - per outpatient records, this is permanent A.fib - A.fib rate controlled while inpatient - continued metoprolol - INR subtherapeutic at 1.5 upon admission - restarted warfarin after held one day pending surgeons evaluations - INR 1.8 upon discharge. Patient tests INR at home - instructed to test tomorrow and contact her coumadin clinic for dosing. Discharged with 10 mg warfarin/day Chronic diastolic chf - restarted lasix - stable this admission DMII - held metformin for contrast administration - can restart tomorrow - ss, bsg ac &hs while inpatient - well controlled [employer] Physician Supervision Note: I interviewed and examined the patient. Discussed with Thania Guillard [employer] and agree with findings and plan as documented in the note. Any exceptions or clarifications are listed here: None Patient was seen and examined she has no problems or abdomen is benign only minor discomfort to deep palpation her vital signs show a temperature of 36 4 pulse 68 respiration rate 20 BP is 104/62 Patient has done well tolerating her liquid diet she'll continue her liquid diet at home with slow advancement of her diet she is recommended to have outpatient follow-up with her physician before she resumes any type of normal diet she is used to dietary modification because of her gastric bypass. Her diabetic medications will restart on 09/19 when she resumes more of a typical diet at home for her Documented By: Nickolas Sahu Total Time Spent: Greater than 30 minutes This includes examination of the patient, discharge planning, medication reconciliation, and communication with other providers. Discharge Instructions Please refer to the electronic Patient Visit Report (Discharge Instructions) for additional information. Follow-Up Primary care provider within about a week Coumadin clinic after INR test tomorrow Additional Copies To Alejandro Martin M.D.; Adrian Leung M.D.; Bobby Lan MD
[2017-09-18 14:17] VITALS: BP 100/53; PULSE 92; TEMP 36.5; O2SAT 94
[2017-09-18] MEDS ORDERED: INSULIN ASPART 100 UNITS/ML 3 ML PEN SC SCH (16:15)
== END 2017-09-18 15:57 | disposition home or self-care (01) | DRG 389 ==
LOC: C.EDB 13:38 → C.2T 17:54 → ENRESERV 18:06 → CANRESERV 18:06 → EDBEDREQSVC 18:16 → ENRESERV 18:16
PROVIDERS: ADMIT Family Medicine; ATTEND Internal Medicine
DX: K56.600 Partial intestinal obstruction, unspecified as to cause (principal); I13.0 Hypertensive heart and chronic kidney disease with heart failure and stage 1 through stage 4 chronic kidney disease, or unspecified chronic kidney disease; I50.32 Chronic diastolic (congestive) heart failure; E87.6 Hypokalemia; I48.2 Chronic atrial fibrillation; E11.22 Type 2 diabetes mellitus with diabetic chronic kidney disease; N18.2 Chronic kidney disease, stage 2 (mild); J45.909 Unspecified asthma, uncomplicated; E53.8 Deficiency of other specified B group vitamins; D50.9 Iron deficiency anemia, unspecified; E78.5 Hyperlipidemia, unspecified; F41.9 Anxiety disorder, unspecified; G47.00 Insomnia, unspecified; Z87.11 Personal history of peptic ulcer disease; Z98.84 Bariatric surgery status; Z90.710 Acquired absence of both cervix and uterus; Z96.659 Presence of unspecified artificial knee joint; Z98.890 Other specified postprocedural states; Z79.01 Long term (current) use of anticoagulants; Z79.84 Long term (current) use of oral hypoglycemic drugs; Z79.899 Other long term (current) drug therapy; Z88.0 Allergy status to penicillin; Z88.6 Allergy status to analgesic agent; Z83.3 Family history of diabetes mellitus

== ENCOUNTER → 2017-09-20 | Outpatient (CLI) | payer OTHER ==
[~2017-09-20] MED LIST changes: +ACET-1693 PO; -ALBU1AER9 PO; -CALCTAB65 PO; +CALCTAB7 PO; +CMD10 PO; -CMD5 PO; +CRFL PO; -CYAN10002 IM; +CYNI1000 IM; -ERGO1CAP35 PO; +ERGO500037 PO; +FURO-85 PO; +HYDR-3126 PO; -HYDR1CAP85 PO; -LPR25 PO; -MELA1TAB54 PO; +MISCCAP80 PO; +MONT1TAB3 PO; +MULT-506 PO; +OMEP40CA41 PO; +OXYC-609 PO; -PEDICHW50 PO; -POLY IRON PO; -SNG10 PO; +SPIR25TA PO; +TEMA15CA4 PO; +TPRSR25 PO; -TYL325X PO; -ULT50X PO; +VNTHFA/IN INH; +ZINC1TAB PO
[2017-09-20 18:06] LABS: BLOOD UREA NITROGEN 13 mg/dl (7-18); CALCIUM 8.1 mg/dl (8.5-10.1); CARBON DIOXIDE 29 mmol/L (21-32); CREATININE 1.15 mg/dl (0.60-1.20); GLUCOSE 122 mg/dl (70-99); POTASSIUM 3.1 mmol/L (3.5-5.1); SODIUM 138 mmol/L (136-145)
== END | disposition home or self-care (01) ==
LOC: C.LABPBG 11:17
PROVIDERS: ATTEND Physician Assistant
DX: I50.32 Chronic diastolic (congestive) heart failure (principal)

== ENCOUNTER → 2017-09-27 | Outpatient (CLI) | payer OTHER ==
[2017-09-27 19:34] LABS: BLOOD UREA NITROGEN 18 mg/dl (7-18); CALCIUM 7.9 mg/dl (8.5-10.1); CARBON DIOXIDE 28 mmol/L (21-32); CREATININE 1.12 mg/dl (0.60-1.20); GLUCOSE 155 mg/dl (70-99); SODIUM 139 mmol/L (136-145)
== END | disposition home or self-care (01) ==
LOC: C.LABPBG 13:30
PROVIDERS: ATTEND Internal Medicine Cardiovascular Disease
DX: E87.6 Hypokalemia (principal)

== ENCOUNTER → 2017-10-08 | Outpatient (CLI) | payer OTHER ==
[2017-10-08 18:06] LABS: BLOOD UREA NITROGEN 22 mg/dl (7-18); CALCIUM 8.4 mg/dl (8.5-10.1); CARBON DIOXIDE 32 mmol/L (21-32); CREATININE 1.19 mg/dl (0.60-1.20); GLUCOSE 74 mg/dl (70-99); POTASSIUM 3.9 mmol/L (3.5-5.1); SODIUM 139 mmol/L (136-145)
== END | disposition home or self-care (01) ==
LOC: C.LABPBG 10:45
PROVIDERS: ATTEND Physician Assistant
DX: E87.6 Hypokalemia (principal)

== ENCOUNTER → 2018-03-05 | Outpatient (CLI) | payer OTHER ==
[2018-03-05 16:57] LABS: BLOOD UREA NITROGEN 21 mg/dl (7-18); CALCIUM 8.1 mg/dl (8.5-10.1); CARBON DIOXIDE 30 mmol/L (21-32); GLUCOSE 79 mg/dl (70-99); POTASSIUM 3.7 mmol/L (3.5-5.1); SODIUM 142 mmol/L (136-145)
== END | disposition home or self-care (01) ==
LOC: C.LABPBG 13:19
PROVIDERS: ATTEND Internal Medicine Cardiovascular Disease
DX: R60.9 Edema, unspecified (principal)

== ENCOUNTER → 2018-03-20 | Outpatient (CLI) | payer OTHER ==
[2018-03-20 16:54] LABS: BLOOD UREA NITROGEN 17 mg/dl (7-18); CALCIUM 8.1 mg/dl (8.5-10.1); CARBON DIOXIDE 34 mmol/L (21-32); CREATININE 1.79 mg/dl (0.60-1.20); GLUCOSE 80 mg/dl (70-99); POTASSIUM 4.3 mmol/L (3.5-5.1); SODIUM 140 mmol/L (136-145)
== END | disposition home or self-care (01) ==
LOC: C.LABPBG 11:20
PROVIDERS: ATTEND Internal Medicine Cardiovascular Disease
DX: I50.32 Chronic diastolic (congestive) heart failure (principal)

== ENCOUNTER 2024-04-30 12:46 | Observation (INO) ==
[2024-04-30 14:20] LABS: Hematocrit (blood only) 37.1 % (37.0-47.0); Hemoglobin 12.1 g/dl (12.0-16.0); Mean Corpuscular Hemoglobin 26.9 pg (25.0-34.0); Mean Corpuscular Hgb Conc 32.6 g/dL (32.0-36.0); Mean Corpuscular Volume 82.6 fL (80.0-100.0); Platelet Count 366 K/uL (130-400); RDW Coefficient of Variation 14.7 % (11.5-14.5); RDW Standard Deviation 44.3 fL (36.4-46.3); Red Blood Count 4.49 M/uL (4.20-5.40); White Blood Count 10.31 K/ul (4.8-10.8)
[2024-04-30 14:37] LABS: Alanine Aminotransferase 12 U/L (7-52); Albumin Globulin Ratio 1.5 (0.9-2); Alkaline Phosphatase 58 U/L (34-104); Anion Gap 11 (3-11); Aspartate Aminotransferase 26 U/L (13-39); BUN Creatinine Ratio 30.7 (10-20); Bilirubin,Total 0.8 mg/dl (0.2-1.0); Blood Urea Nitrogen 67 mg/dl (6-23); Carbon Dioxide 28 mmol/L (21-32); Chloride 95 mmol/L (98-107); Est GFR (African American) 25.4 ml/min; Est GFR (Non-African American) 21.9 ml/min; Globulin 2.7 gm/dl (2.5-4.0); Glucose 151 mg/dl (70-99(Fasting)); Potassium 2.8 mmol/L (3.5-5.1); Sodium 134 mmol/L (136-145); Total Protein 6.7 gm/dl (6.0-8.3)
[2024-04-30 14:44] LABS: Troponin I High Sensitivity 41.4 pg/ml (0-14)
[2024-04-30 14:52] LABS: Partial Thromboplastin Time 27 Seconds (21-31); Prothrombin Time 10.7 Seconds (9.0-12.0)
[2024-04-30 15:00] LABS: Magnesium 1.9 mg/dl (1.7-2.4)
--- NOTE | 2024-04-30 15:14 | CT Scan Report ---
CT abd pelvis wo con CLINICAL HISTORY: abdominal pain; vomiting, diarrhea TECHNIQUE: Helical axial images of the abdomen and pelvis were obtained. Automated dose lowering tech niques and/or adjustment according to patient size were utilized for this exam. This exam was perfor med without intravenous contrast. CT DOSE: 1074.25 mGy.cm COMPARISON: Comparison is made to CT abdomen pelvis 09/16/2018 FINDINGS: Lower chest: Bibasilar atelectasis versus scarring is seen. Liver: Unremarkable. No focal lesions are seen. Gallbladder and biliary tree: No calcified gallstones. Normal caliber wall. No intra- or extrahepatic biliary ductal dilation. Pancreas: Unremarkable, no focal lesions. Spleen: Unremarkable. Adrenals: Unremarkable. Kidneys and ureters: Nonobstructive nephrolithiasis is seen. Bladder: Unremarkable. Reproductive organs: Unremarkable. Bowel: The appendix is normal. Postsurgical changes of gastric bypass are seen with a small hiatal he rnia. There is no definite small bowel dilation, there is mild prominence of the helm of the loops o f the left hemiabdomen. Lymph nodes Retroperitoneal: Unremarkable. Pelvic: Unremarkable. Mesenteric: Unremarkable. Peritoneum: Normal. Vessels: Atherosclerotic calcifications are seen. Abdominal wall: Unremarkable. Bones: Degenerative changes in the visualized spine. IMPRESSION: No acute abnormalities and in particular no evidence of bowel obstruction. A mild enteritis cannot be excluded. Postsurgical changes of gastric bypass are seen. ACT 112: Negative or not required by law. Electronically signed by: Chapincito Dewitt M.D. 04/30/2024 3:12 PM
[2024-04-30] MEDS: MAGNESIUM SULFATE / D5W 1 GM/100 ML BAG IV STA (15:50)
[2024-04-30] MEDS: POTASSIUM CHLORIDE / WTR 10 MEQ/100 ML PLCT IV SCH ×2 (15:50→22:01)
[2024-04-30] MEDS: SODIUM CHLORIDE 0.9% 1,000 ML IV ONE (15:51)
--- NOTE | 2024-04-30 15:54 | Emergency Department Note ---
Impression & Plan Acute hypokalemia, Abdominal pain, Vomiting, Non-ST elevation TN (NSTEMI) ED Provider Note HISTORY OF PRESENT ILLNESS: Patient is a 73-year-old female presenting with abdominal pain and vomiting. Patient reports that she has been having recurrent episodes of vomiting and diffuse abdominal pain for the last week. States that she has been trying to drink energy drinks and Gatorade, but continues to vomit and feel nauseous. Reports that she did have a bowel movement today but it was "a lot less than normal and I had to take the Dulcolax." Denies any chest pain or shortness of breath. She is on Eliquis for history of A-fib. Denies any DVT or PE history. Reports she has been significantly weak with all of her vomiting. Denies any fevers. Reports an abdominal surgical history significant for hysterectomy and gastric bypass. She denies any dysuria or hematuria. Denies any recent sick contact exposures. ROS: as above PHYSICAL EXAM: Constitutional: Patient appears in no acute distress. HENT: Head: Normocephalic and atraumatic. Eyes: EOMI, PERRL Mouth/Throat: Mucous membranes moist. Neck: Trachea midline. Neck supple. Cardiovascular: Irregular rhythm. No murmurs, rubs or gallops. Intact distal pulses. Pulmonary/Chest: No respiratory distress. Breath sounds clear and equal bilaterally. No wheezes or rales. Abdominal: Abdomen soft, no tenderness, rebound or guarding. Musculoskeletal: No edema, tenderness or deformity noted. Skin: Warm and dry. No rash, erythema, pallor or cyanosis Psychiatric: Appropriate mood and affect for situation. Neurological: Alert and keenly responsive. CN II-XII grossly intact, moving all extremities equally and fully. MDM: - Vitals signs stable. - History obtained via patient. History as above. - Chronic conditions affecting care: CKD; DM-2; HTN; HLD; Afib; hypothyroidism - Differential diagnoses include, but are not limited to: small bowel obstruction; ischemic colitis; viral syndrome; infectious diarrhea; electrolyte abnormality - Order placed for continuous cardiac monitoring. At this time, monitor showed rate of 66 bpm with irregular rhythm, per my interpretation. - External medical records reviewed. Nephrology visit note dated 12/06/2023 was reviewed. Patient follows in their clinic for her CKD stage III. Baseline creatinine is 2 to 2.5 mg/dL. - EKG interpreted by myself showed atrial fibrillation. Rate 71 bpm. QT 408. No acute ischemic changes. - Laboratory workup interpreted by myself showed normal WBC; normal PT/INR; hyponatremia (Na 134); hypokalemia (K 2.8); CKD (Cr 2.18); elevated troponin (41.4) - CXR negative for pneumonia, per my interpretation - CT abdomen/pelvis wo contrast negative for acute pathology, per radiology - Patient given 1L NS in ER. Given 1g IV magnesium and a total of 30 mEq IV potassium for electrolyte replacement. - Viral respiratory panel negative. - NSTEMI likely type II in nature secondary to patient's week of vomiting. - Discussion was had with food and beverage outlets manager about patient's case and need for admission - Hospitalist, Dr. Sultana, consulted for admission - [facility] ASSESSMENT AND PLAN: Diagnosis: Acute hypokalemia; vomiting; abdominal pain; NSTEMI Plan: admit Past Med/Surg History Problem List (Updated 04/30/24 @ 18:24 by Weston Sultana MD) Nausea Atrial fibrillation, permanent Chronic heart failure with preserved ejection fraction Asthma (Chronic) Obstructive sleep apnea Anemia Dyslipidemia HTN (hypertension) (Chronic) Chronic diastolic heart failure Atrial fibrillation Type 2 diabetes mellitus [facility] (current) use of anticoagulants CKD (chronic kidney disease) stage 3, GFR 30-59 ml/min Medical History (Updated 04/30/24 @ 18:24 by Weston Sultana MD) Hypothyroidism Vitamin B12 deficiency Uterine cancer Esophageal ulcer SBO (small bowel obstruction) Surgical History S/P RISHABH-BSO (total abdominal hysterectomy and bilateral salpingo-oophorectomy) S/P partial thyroidectomy S/P tonsillectomy S/p total knee replacement, bilateral S/P gastric bypass Open gastric bypass by Dr. Dietz 06/27/2010 S/P cataract surgery Family History Mother Lymphoma Social History Smoking Status: Never smoker Preferred Language: Amharic Feels Safe at Home: Yes Allergies Allergies Allergy/AdvReac Type Severity Reaction Status Date / Time amoxicillin Allergy Intermediate RASH Verified 12/06/23 15:18 clavulanic acid Allergy Intermediate RASH Verified 12/06/23 15:18 ibuprofen Allergy Mild ITCHING Verified 12/06/23 15:18 Penicillins Allergy Mild ITCHING Verified 12/06/23 15:18 Home Meds Home Medications Medication Instructions Recorded Confirmed albuterol sulfate 90 mcg/actuation 2 puffs inhalation Q6H PRN 04/16/19 04/30/24 aerosol inhaler shortness of breath or wheezing hydroxyzine HCl 50 mg tablet 50 mg PO TID PRN itching 04/16/19 04/30/24 paroxetine HCl 30 mg tablet 40 mg PO DAILY 06/22/21 04/30/24 Saccharomyces boulardii [Daily 1 tab PO DAILY 12/27/21 04/30/24 Probiotic (S. boulardii)] acetaminophen 650 mg 650 mg PO Q12H PRN Pain 12/27/21 04/30/24 tablet,extended release atorvastatin 40 mg tablet 40 mg PO DAILY 12/27/21 04/30/24 calcium [calcium citrate] 600 mg PO BID 12/27/21 04/30/24 clindamycin HCl 300 mg capsule 300 mg PO ONCE PRN Other 12/27/21 04/30/24 dextran 70-hypromellose (PF) 0.1 1 drp ophthalmic (eye) DAILY PRN 12/27/21 04/30/24 %-0.3 % eye drops in a dropperette Other (Natural Tears (PF)) montelukast 10 mg tablet 10 mg PO DAILY 12/27/21 04/30/24 multivitamin (Daily Multi-Vitamin 1 tab PO DAILY 12/27/21 04/30/24 tablet) nystatin 100,000 unit/gram topical 1 applic topical DAILY PRN Other 12/27/21 04/30/24 powder (Nyamyc) oxycodone 10 mg tablet 10 mg PO Q8H PRN Pain 12/27/21 04/30/24 polyethylene glycol 3350 17 17 g PO DAILY PRN Constipation 12/27/21 04/30/24 gram/dose oral powder (Miralax) mecobalamin (vitamin B12) 1,000 1,000 mcg PO DAILY 09/14/22 04/30/24 mcg lozenges mirtazapine 30 mg tablet 30 mg PO QPM 09/14/22 04/30/24 sucralfate 100 mg/mL oral 100 mg PO QID PRN Other 09/14/22 04/30/24 suspension cholecalciferol (vitamin D3) 1 cap PO DAILY 09/06/23 04/30/24 semaglutide 2 mg/dose (8 mg/3 mL) 2 mg subcut WK 04/30/24 04/30/24 subcutaneous pen injector (Ozempic) Previous Rx's Medication Instructions Recorded famotidine 40 mg tablet 40 mg PO DAILY #90 tabs 05/17/23 bumetanide 1 mg tablet 1 mg PO DAILY PRN edema #90 tabs 01/14/24 calcitriol 0.5 mcg capsule 1 mcg (2 x 0.5 mcg) PO DAILY #180 03/06/24 caps apixaban 5 mg tablet (Eliquis) 5 mg PO BID #180 tabs 04/08/24 Results & Data (ED) Vital Signs Vital Signs - 24 hr 04/30/24 13:07 04/30/24 16:07 04/30/24 16:07 Temperature 36.5 C Temperature Source Temporal Artery Scan Pulse Rate 65 74 Pulse Rate [Apical] 70 Pulse Rhythm Irregular Pulse Rhythm [Apical] Irregular Pulse Strength [Apical] Normal Respiratory Rate 22 18 18 Respiratory Effort / Characteristics Spontaneous Short of Breath Non-Labored Spontaneous Respiratory Depth Shallow Normal Respiratory Pattern Regular Regular Blood Pressure 110/70 Blood Pressure [Right Arm] 122/77 Blood Pressure Mean 83 Blood Pressure Mean [Right Arm] 92 Blood Pressure Position [Right Arm] Sitting Pulse Oximetry 98 100 99 Oxygen Delivery Method Room Air Room Air Room Air Sepsis Recent Fever Within 48 Hours No Sepsis New/Unexplained Change in Mental Status No Sepsis Action Taken by Nursing No Action Required 04/30/24 16:12 04/30/24 18:19 Temperature Temperature Source Pulse Rate 84 Pulse Rate [Apical] 63 Pulse Rhythm Pulse Rhythm [Apical] Irregular Pulse Strength [Apical] Normal Respiratory Rate 16 Respiratory Effort / Characteristics Non-Labored Spontaneous Respiratory Depth Normal Respiratory Pattern Regular Blood Pressure Blood Pressure [Right Arm] 118/77 Blood Pressure Mean Blood Pressure Mean [Right Arm] 90 Blood Pressure Position [Right Arm] Sitting Pulse Oximetry 98 Oxygen Delivery Method Room Air Sepsis Recent Fever Within 48 Hours Sepsis New/Unexplained Change in Mental Status Sepsis Action Taken by Nursing Laboratory Data 04/30/24 14:04 04/30/24 14:04 Lab Results 04/30/24 04/30/24 04/30/24 Range/Units 14:04 14:05 15:02 WBC 10.31 (4.8-10.8) K/ul RBC 4.49 (4.20-5.40) M/uL Hgb 12.1 (12.0-16.0) g/dl Hct 37.1 (37.0-47.0) % MCV 82.6 (80.0-100.0) fL MCH 26.9 (25.0-34.0) pg MCHC 32.6 (32.0-36.0) g/dL RDW Std Deviation 44.3 (36.4-46.3) fL RDW Coeff of Jamar 14.7 H (11.5-14.5) % Plt Count 366 (130-400) K/uL MPV 10.0 (9.4-12.4) fL PT 10.7 (9.0-12.0) Seconds INR 1.0 (0.9-1.1) APTT 27 (21-31) Seconds PTT Ratio 1.0 Sodium 134 L (136-145) mmol/L Potassium 2.8 L (3.5-5.1) mmol/L Chloride 95 L (98-107) mmol/L Carbon Dioxide 28 (21-32) mmol/L Anion Gap 11 (3-11) BUN 67 H (6-23) mg/dl Creatinine 2.18 H (0.6-1.2) mg/dl Est Cr Clr Drug Dosing Not Reportable Est GFR ( Amer) 25.4 ml/min Est GFR (Non-Af Amer) 21.9 ml/min BUN/Creatinine Ratio 30.7 H (10-20) Glucose 151 H (70-99(Fasting)) mg/dl Calcium 9.0 (8.6-10.3) mg/dl Magnesium 1.9 (1.7-2.4) mg/dl Total Bilirubin 0.8 (0.2-1.0) mg/dl AST 26 (13-39) U/L ALT 12 (7-52) U/L Alkaline Phosphatase 58 (34-104) U/L Troponin I High Sens 41.4 H (0-14) pg/ml Total Protein 6.7 (6.0-8.3) gm/dl Albumin 4.0 (3.4-5.0) gm/dl Globulin 2.7 (2.5-4.0) gm/dl Albumin/Globulin Ratio 1.5 (0.9-2) Adenovirus (PCR) Not Detected (NotDetected) B. pertussis DNA (PCR) Not Detected (NotDetected) B.parapertussis DNA PCR Not Detected (NotDetected) C. pneumoniae DNA (PCR) Not Detected (NotDetected) Coronavirus OC43 (PCR) Not Detected (NotDetected) Coronavirus HKU1 (PCR) Not Detected (NotDetected) Coronavirus 229E (PCR) Not Detected (NotDetected) SARS-CoV-2 (PCR) Not Detected (NotDetected) Coronavirus NL63 (PCR) Not Detected (NotDetected) Human Metapneumovir PCR Not Detected (NotDetected) Influenza Type A (PCR) Not Detected (NotDetected) Influenza Type B (PCR) Not Detected (NotDetected) M. pneumoniae (PCR) Not Detected (NotDetected) Parainfluenza 1 (PCR) Not Detected (NotDetected) Parainfluenza 2 (PCR) Not Detected (NotDetected) Parainfluenza 3 (PCR) Not Detected (NotDetected) Parainfluenza 4 (PCR) Not Detected (NotDetected) RSV (PCR) Not Detected (NotDetected) Entero/Rhino (PCR) Not Detected (NotDetected) Blood Type O Positive Antibody Screen NEGATIVE 04/30/24 Range/Units 16:33 WBC (4.8-10.8) K/ul RBC (4.20-5.40) M/uL Hgb (12.0-16.0) g/dl Hct (37.0-47.0) % MCV (80.0-100.0) fL MCH (25.0-34.0) pg MCHC (32.0-36.0) g/dL RDW Std Deviation (36.4-46.3) fL RDW Coeff of Jamar (11.5-14.5) % Plt Count (130-400) K/uL MPV (9.4-12.4) fL PT (9.0-12.0) Seconds INR (0.9-1.1) APTT (21-31) Seconds PTT Ratio Sodium (136-145) mmol/L Potassium (3.5-5.1) mmol/L Chloride (98-107) mmol/L Carbon Dioxide (21-32) mmol/L Anion Gap (3-11) BUN (6-23) mg/dl Creatinine (0.6-1.2) mg/dl Est Cr Clr Drug Dosing Est GFR ( Amer) ml/min Est GFR (Non-Af Amer) ml/min BUN/Creatinine Ratio (10-20) Glucose (70-99(Fasting)) mg/dl Calcium (8.6-10.3) mg/dl Magnesium (1.7-2.4) mg/dl Total Bilirubin (0.2-1.0) mg/dl AST (13-39) U/L ALT (7-52) U/L Alkaline Phosphatase (34-104) U/L Troponin I High Sens 31.1 H D (0-14) pg/ml Total Protein (6.0-8.3) gm/dl Albumin (3.4-5.0) gm/dl Globulin (2.5-4.0) gm/dl Albumin/Globulin Ratio (0.9-2) Adenovirus (PCR) (NotDetected) B. pertussis DNA (PCR) (NotDetected) B.parapertussis DNA PCR (NotDetected) C. pneumoniae DNA (PCR) (NotDetected) Coronavirus OC43 (PCR) (NotDetected) Coronavirus HKU1 (PCR) (NotDetected) Coronavirus 229E (PCR) (NotDetected) SARS-CoV-2 (PCR) (NotDetected) Coronavirus NL63 (PCR) (NotDetected) Human Metapneumovir PCR (NotDetected) Influenza Type A (PCR) (NotDetected) Influenza Type B (PCR) (NotDetected) M. pneumoniae (PCR) (NotDetected) Parainfluenza 1 (PCR) (NotDetected) Parainfluenza 2 (PCR) (NotDetected) Parainfluenza 3 (PCR) (NotDetected) Parainfluenza 4 (PCR) (NotDetected) RSV (PCR) (NotDetected) Entero/Rhino (PCR) (NotDetected) Blood Type Antibody Screen Administered Medications Discontinued Medications Sodium Chloride (Nss) 1,000 mls @ 999 mls/hr IV .Q1H1M ONE Stop: 04/30/24 15:40 Last Infusion: 04/30/24 17:00 Dose: Infused Documented By: Admin: 04/30/24 15:51 Dose: 999 mls/hr Documented By: LYDIA Potassium Chloride (K Hans / Wtr) 10 meq in 100 mls @ 100 mls/hr IV Q1H DAISY Stop: 04/30/24 17:44 Last Admin: 04/30/24 18:13 Dose: 100 mls/hr Documented By: Infusion: 04/30/24 18:12 Dose: Infused Documented By: Admin: 04/30/24 17:12 Dose: 100 mls/hr Documented By: Infusion: 04/30/24 17:00 Dose: Infused Documented By: Admin: 04/30/24 15:50 Dose: 100 mls/hr Documented By: LYDIA Magnesium Sulfate/Dextrose (Magnesium Sulfate / D5w) 1 gm in 100 mls @ 100 mls/hr IV NOW STA Stop: 04/30/24 16:00 Last Infusion: 04/30/24 17:00 Dose: Infused Documented By: Admin: 04/30/24 15:50 Dose: 100 mls/hr Documented By: LYDIA Imaging Data Radiologist's Impression: Abdomen/Pelvis CT 04/30/24 14:42 CT abd pelvis wo con CLINICAL HISTORY: abdominal pain; vomiting, diarrhea TECHNIQUE: Helical axial images of the abdomen and pelvis were obtained. Automated dose lowering techniques and/or adjustment according to patient size were utilized for this exam. This exam was performed without intravenous contrast. CT DOSE: 1074.25 mGy.cm COMPARISON: Comparison is made to CT abdomen pelvis 09/16/2018 FINDINGS: Lower chest: Bibasilar atelectasis versus scarring is seen. Liver: Unremarkable. No focal lesions are seen. Gallbladder and biliary tree: No calcified gallstones. Normal caliber wall. No intra- or extrahepatic biliary ductal dilation. Pancreas: Unremarkable, no focal lesions. Spleen: Unremarkable. Adrenals: Unremarkable. Kidneys and ureters: Nonobstructive nephrolithiasis is seen. Bladder: Unremarkable. Reproductive organs: Unremarkable. Bowel: The appendix is normal. Postsurgical changes of gastric bypass are seen with a small hiatal hernia. There is no definite small bowel dilation, there is mild prominence of the helm of the loops of the left hemiabdomen. Lymph nodes Retroperitoneal: Unremarkable. Pelvic: Unremarkable. Mesenteric: Unremarkable. Peritoneum: Normal. Vessels: Atherosclerotic calcifications are seen. Abdominal wall: Unremarkable. Bones: Degenerative changes in the visualized spine. IMPRESSION: No acute abnormalities and in particular no evidence of bowel obstruction. A mild enteritis cannot be excluded. Postsurgical changes of gastric bypass are seen. ACT 112: Negative or not required by law. Electronically signed by: Chapincito Dewitt M.D. 04/30/2024 3:12 PM Chest X-Ray 04/30/24 16:21 XR chest 1V portable HISTORY: 73 years-old Female weakness acute weakness COMPARISON: 05/21/2012 TECHNIQUE: AP view of the chest FINDINGS: Cardiac silhouette is enlarged. Atherosclerosis of the aorta. No pneumothorax, pleural effusion or airspace consolidation. The bones appear intact. IMPRESSION: Cardiomegaly without acute process. ACT 112: Negative or not required by law. The above report was generated using voice recognition software. It may contain grammatical, syntax or spelling errors. Electronically signed by: Truong Alegria M.D. 04/30/2024 5:21 PM Discharge Plan Visit Data Chief Complaint: Abdominal Pain Stated Complaint: BACK PAIN, LOWER ABD, VOMIT, LETHARGIC, DEYHYDRATE ED Provider: Fanny Rea Discharge Problem: Acute hypokalemia, Abdominal pain, Vomiting, Non-ST elevation [place] (NSTEMI) Forms Stand Alone Forms: [facility] [place] [employer] Prescriptions Prescriptions: No Action bumetanide 1 mg tablet 1 mg PO DAILY PRN (Reason: edema) Qty: 90 3RF calcitriol 0.5 mcg capsule 1 mcg PO DAILY Qty: 180 3RF Eliquis 5 mg tablet 5 mg PO BID Qty: 180 3RF polyethylene glycol 3350 [Miralax] 17 gram/dose powder 17 g PO DAILY PRN (Reason: Constipation) atorvastatin 40 mg tablet 40 mg PO DAILY oxycodone 10 mg tablet 10 mg PO Q8H PRN (Reason: Pain) Saccharomyces boulardii [Daily Probiotic (S. boulardii)] 1 tab PO DAILY nystatin [Nyamyc] 100,000 unit/gram powder 1 applic topical DAILY PRN (Reason: Other) acetaminophen 650 mg tablet extended release 650 mg PO Q12H PRN (Reason: Pain) clindamycin HCl 300 mg capsule 300 mg PO ONCE PRN (Reason: Other) multivitamin [Daily Multi-Vitamin] Tablet 1 tab PO DAILY Natural Tears (PF) 0.1-0.3 % dropperette 1 drp ophthalmic (eye) DAILY PRN (Reason: Other) montelukast 10 mg tablet 10 mg PO DAILY calcium [calcium citrate] 600 mg PO BID cholecalciferol (vitamin D3) 1 cap PO DAILY hydroxyzine HCl 50 mg tablet 50 mg PO TID PRN (Reason: itching) albuterol sulfate 90 mcg/actuation HFA aerosol inhaler 2 puffs inhalation Q6H PRN (Reason: shortness of breath or wheezing) paroxetine HCl 30 mg tablet 40 mg PO DAILY sucralfate 100 mg/mL suspension 100 mg PO QID PRN (Reason: Other) mecobalamin (vitamin B12) 1,000 mcg lozenge 1,000 mcg PO DAILY Rx Instructions: allow to dissolve in mouth OR may chew lightly before swallowing mirtazapine 30 mg tablet 30 mg PO QPM famotidine 40 mg tablet 40 mg PO DAILY Qty: 90 2RF Ozempic 2 mg/dose (8 mg/3 mL) pen injector 2 mg SUBCUT WK Referrals Referrals: Adrian Leung [Primary Care Provider] -
--- NOTE | 2024-04-30 17:22 | XRay Report ---
XR chest 1V portable HISTORY: 73 years-old Female weakness acute weakness COMPARISON: 05/21/2012 TECHNIQUE: AP view of the chest FINDINGS: Cardiac silhouette is enlarged. Atherosclerosis of the aorta. No pneumothorax, pleural effusion or ai rspace consolidation. The bones appear intact. IMPRESSION: Cardiomegaly without acute process. ACT 112: Negative or not required by law. The above report was generated using voice recognition software. It may contain grammatical, syntax o r spelling errors. Electronically signed by: Truong Alegria M.D. 04/30/2024 5:21 PM
[2024-04-30 17:28] LABS: Adenovirus PCR Not Detected (NotDetected); Bordetella parapertussis PCR Not Detected (NotDetected); Bordetella pertussis PCR Not Detected (NotDetected); Chlamydia pneumoniae PCR Not Detected (NotDetected); Coronavirus 229E PCR Not Detected (NotDetected); Coronavirus CoV-2 (COVID19)PCR Not Detected (NotDetected); Coronavirus HKU1 PCR Not Detected (NotDetected); Coronavirus NL63 PCR Not Detected (NotDetected); Coronavirus OC43PCR Not Detected (NotDetected); Human Metapneumovirus PCR Not Detected (NotDetected); Influenza A PCR Not Detected (NotDetected); Influenza B PCR Not Detected (NotDetected); Mycoplasma pneumoniae PCR Not Detected (NotDetected); Parainfluenza Virus 1 PCR Not Detected (NotDetected); Parainfluenza Virus 2 PCR Not Detected (NotDetected); Parainfluenza Virus 3 PCR Not Detected (NotDetected); Parainfluenza Virus 4 PCR Not Detected (NotDetected); Respiratory Syncytial VirusPCR Not Detected (NotDetected); Rhinovirus/Enterovirus PCR Not Detected (NotDetected)
--- NOTE | 2024-04-30 18:26 | History & Physical Report ---
Date of Service April 30, 2024 Assessment & Plan (1) Nausea: Plan: Nausea/vomiting History of gastric bypass CT with no evidence of SBO. Mild enteritis not excluded Suspect viral illness, passing but with volume contraction and severe electrolyte depletion Stool bio fire is pending Hypokalemic, creatinine within patient's baseline, slightly hypomagnesemic suspect due to poor intake Replete potassium, goal 4.0, replete magnesium goal 2.0 Zofran, IV FM ordered (2) Chronic heart failure with preserved ejection fraction: Plan: HFpEF Bumex temporarily held for volume contraction No evidence of acute on chronic CHF on admission Chest x-ray is cardiomegaly without acute process Continue home meds Troponin is minimally elevated 41 and downtrending at 31, clinically without chest pain. Suspect demand (3) CKD (chronic kidney disease) stage 3, GFR 30-59 ml/min: Plan: CKD Baseline creatinine around 22.5 Admitting creatinine 2.18 Bumex held for clinical volume contraction No evidence of monoclonal proteins on prior SPEP/UPEP (4) Type 2 diabetes mellitus: Plan: Type II DM Basal continued. Patient takes Ozempic on Sundays. Basal insulin held. Ozempic also had priorly held as this can contribute to nausea/vomiting, although she has been tolerating this for several weeks Goal BSG 478804 (5) Atrial fibrillation: Plan: Continue Eliquis Admitting EKG A-fib without RVR, inferior T wave inversions are present. No territorial ST segment changes As noted (6) Obstructive sleep apnea: Plan: CPAP at bedtime as needed Plan DVT prophylaxis: Eliquis Disposition: MT CODE STATUS: Full code Diet: Heart healthy, DM 2 History of Present Illness Primary Care Provider: Adrian Cabrera is a 73-year-old female with a past medical history of gastric bypass, A-fib on apixaban, hypertension, diastolic heart failure, CKD, dyslipidemia who presents to the ER with abdominal pain nausea/vomiting over the last week with poor p.o. tolerance. She has had bowel movements but decreased in size, she is passing flatus. She feels overall very fatigued and weak, and is hypokalemic at 2.8 on ER evaluation. She is recommended for admission for intractable nausea/vomiting Deborah reports that in the last week she is felt very nauseous, intermittently like she is needed to vomit, and has had small amounts of emesis of liquids. She does feel that this is slowly starting to improve in the last day or 2 and she is able to walk without getting nauseous, but felt very weak and washed out and has gotten dehydrated before. She has a history of gastric bypass. CT does not show any evidence of obstruction. She has passed a small amount of gas and had small bowel movement, but a little less than normal. She denies abdominal pain. Denies fever chills or sweats. Denies chest pain chest pressure shortness of breath. She denies muscle cramps. She was able to take her medicines this morning. Medical History: Reviewed Medications: Reviewed Surgical History: Reviewed Family history: Reviewed Allergies: Reviewed Social History: Reviewed Code Status: Full Allergies Allergy/AdvReac Type Severity Reaction Status Date / Time amoxicillin Allergy Intermediate RASH Verified 12/06/23 15:18 clavulanic acid Allergy Intermediate RASH Verified 12/06/23 15:18 ibuprofen Allergy Mild ITCHING Verified 12/06/23 15:18 Penicillins Allergy Mild ITCHING Verified 12/06/23 15:18 Home Medications Medication Instructions Recorded Confirmed Type albuterol sulfate 90 mcg/actuation 2 puffs inhalation Q6H PRN 04/16/19 04/30/24 History aerosol inhaler shortness of breath or wheezing hydroxyzine HCl 50 mg tablet 50 mg PO TID PRN itching 04/16/19 04/30/24 History paroxetine HCl 30 mg tablet 40 mg PO DAILY 06/22/21 04/30/24 History Saccharomyces boulardii [Daily 1 tab PO DAILY 12/27/21 04/30/24 History Probiotic (S. boulardii)] acetaminophen 650 mg 650 mg PO Q12H PRN Pain 12/27/21 04/30/24 History tablet,extended release atorvastatin 40 mg tablet 40 mg PO DAILY 12/27/21 04/30/24 History calcium [calcium citrate] 600 mg PO BID 12/27/21 04/30/24 History clindamycin HCl 300 mg capsule 300 mg PO ONCE PRN Other 12/27/21 04/30/24 History dextran 70-hypromellose (PF) 0.1 1 drp ophthalmic (eye) DAILY PRN 12/27/21 04/30/24 History %-0.3 % eye drops in a dropperette Other (Natural Tears (PF)) montelukast 10 mg tablet 10 mg PO DAILY 12/27/21 04/30/24 History multivitamin (Daily Multi-Vitamin 1 tab PO DAILY 12/27/21 04/30/24 History tablet) nystatin 100,000 unit/gram topical 1 applic topical DAILY PRN Other 12/27/21 04/30/24 History powder (Nyamyc) oxycodone 10 mg tablet 10 mg PO Q8H PRN Pain 12/27/21 04/30/24 History polyethylene glycol 3350 17 17 g PO DAILY PRN Constipation 12/27/21 04/30/24 History gram/dose oral powder (Miralax) mecobalamin (vitamin B12) 1,000 1,000 mcg PO DAILY 09/14/22 04/30/24 History mcg lozenges mirtazapine 30 mg tablet 30 mg PO QPM 09/14/22 04/30/24 History sucralfate 100 mg/mL oral 100 mg PO QID PRN Other 09/14/22 04/30/24 History suspension famotidine 40 mg tablet 40 mg PO DAILY #90 tabs 05/17/23 04/30/24 Rx cholecalciferol (vitamin D3) 1 cap PO DAILY 09/06/23 04/30/24 History bumetanide 1 mg tablet 1 mg PO DAILY PRN edema #90 tabs 01/14/24 04/30/24 Rx calcitriol 0.5 mcg capsule 1 mcg (2 x 0.5 mcg) PO DAILY #180 03/06/24 04/30/24 Rx caps apixaban 5 mg tablet (Eliquis) 5 mg PO BID #180 tabs 04/08/24 04/30/24 Rx semaglutide 2 mg/dose (8 mg/3 mL) 2 mg subcut WK 04/30/24 04/30/24 History subcutaneous pen injector (Ozempic) Past Med/Surg History Problem List (Updated 04/30/24 @ 18:24 by Weston Sultana MD) Nausea Atrial fibrillation, permanent Chronic heart failure with preserved ejection fraction Asthma (Chronic) Obstructive sleep apnea Anemia Dyslipidemia HTN (hypertension) (Chronic) Chronic diastolic heart failure Atrial fibrillation Type 2 diabetes mellitus prison (current) use of anticoagulants CKD (chronic kidney disease) stage 3, GFR 30-59 ml/min Medical History (Updated 04/30/24 @ 18:24 by Weston Sultana MD) Hypothyroidism Vitamin B12 deficiency Uterine cancer Esophageal ulcer SBO (small bowel obstruction) Surgical History S/P RISHABH-BSO (total abdominal hysterectomy and bilateral salpingo-oophorectomy) S/P partial thyroidectomy S/P tonsillectomy S/p total knee replacement, bilateral S/P gastric bypass Open gastric bypass by Dr. Dietz 06/27/2010 S/P cataract surgery Family History Mother Lymphoma Social History Smoking Status: Never smoker Preferred Language: [place] Feels Safe at Home: Yes Physical Exam Physical Exam: General: A&Ox3. NAD. Cooperative. HEENT: Atraumatic, normocephalic. Patient hearing grossly intact Pulm: CTAB A&P. -wheezes, -rales, -rhonchi. Symmetrical chest rise. No increased work of breathing. No respiratory distress. Cardiac: irir, +sm. Radial pulses intact and symmetrical. Abdominal: Soft, nontender, no rebound Results & Data Results & Data Vital Signs (Past 12 Hours) Vital Signs Temp Pulse Pulse Resp BP BP Pulse Ox 04/30/24 18:19 63 16 118/77 98 04/30/24 16:12 84 04/30/24 16:07 74 18 99 04/30/24 16:07 70 18 122/77 100 04/30/24 13:07 36.5 C 65 22 110/70 98 O2 Del Method 04/30/24 18:19 Room Air 04/30/24 16:12 04/30/24 16:07 Room Air 04/30/24 16:07 Room Air 04/30/24 13:07 Room Air PG Care Time/CCT Total # of Minutes Spent Total Time Spent with Patient: Total time spent is greater than 50% in coordination of care (as documented) at patient's floor/unit and/or counseling patient: Coding Level of Care Code 27963 INT INP/OBS CARE 3/75MIN Diagnoses Nausea R11.0 Chronic heart failure with preserved ejection fraction I50.32 CKD (chronic kidney disease) stage 3, GFR 30-59 ml/min N18.3 Type 2 diabetes mellitus E11.9 Atrial fibrillation I48.91 Obstructive sleep apnea G47.33
[2024-04-30] MEDS ORDERED: GLUCOSE 10 TAB/TUBE PO PRN (18:37)
[2024-04-30] MEDS ORDERED: PHARMACY GLYCEMIC MGMT CONSULT PRN (18:37)
[2024-04-30] MEDS ORDERED: DEXTROSE 50% 50 ML SYRINGE IV PRN (18:37)
[2024-04-30] MEDS ORDERED: GLUCAGON FOR INJ 1 MG VIAL SQ PRN (18:37)
[2024-04-30] MEDS ORDERED: CARBOHYDRATES FOR HYPOGLYCEMIA PO PRN (18:37)
[2024-04-30] MEDS ORDERED: GLUCOSE 40% GEL 15 GM TUBE PO PRN (18:37)
[2024-04-30] MEDS ORDERED: Patient's WEIGHT Needed SCH (19:15)
[2024-04-30] MEDS: THIAMINE HCL 200 MG in SODIUM CHLORIDE 0.9% 50 ML IV STA (19:16)
[2024-04-30] MEDS ORDERED: INSULIN ASPART PER UNIT CHARGE SC SCH (21:00)
[2024-04-30] MEDS ORDERED: hydrOXYzine HCl 25 MG TAB PO PRN (21:32)
[2024-04-30] MEDS ORDERED: POLYETHYLENE (MIRALAX) 17 GM PACK PO PRN (21:32)
[2024-04-30] MEDS ORDERED: ALBUTEROL HFA 8 GM INHALER INH PRN (21:32)
[2024-04-30] MEDS ORDERED: ACETAMINOPHEN 325 MG TAB PO PRN (21:32)
[2024-04-30] MEDS ORDERED: ONDANSETRON INJ 2 MG/ML 2 ML VIAL IV PRN (21:32)
[2024-04-30] MEDS ORDERED: oxyCODONE HCL IR 5 MG TAB (IMMEDIATE RELEASE) PO PRN (21:32)
[2024-04-30] MEDS ORDERED: ARTIFICIAL TEARS OP PRN (21:50)
[2024-04-30] MEDS: LACTATED RINGER'S 1,000 ML IV SCH (22:00)
[2024-04-30] MEDS: APIXABAN 5 MG TABLET PO SCH (22:13)
[2024-04-30] MEDS: MIRTAZAPINE TAB 15 MG TAB PO SCH (22:14)
[2024-04-30 23:17] LABS: BUN Creatinine Ratio 30.9 (10-20); Creatinine Clr Calc Pharmacy 24.1 ml/min; Est GFR (African American) 27.5 ml/min; Est GFR (Non-African American) 23.8 ml/min; Potassium 2.9 mmol/L (3.5-5.1)
[2024-05-01] MEDS: INSULIN ASPART PER UNIT CHARGE SC SCH ×2 (00:16→08:19)
--- OUTSIDE RECORDS SUMMARY | 2024-05-01 01:43 | External Medical Summary | Summary of Care ---
Author Name Unknown Organization [facility] Address [address] [place] [address] Phone [phone] Care Team Providers Care Assembling Machine Operator Name Role Phone Adrian Leung MD Primary Care Provider + [phone] Reason for Visit * Evaluate & Treat - Unlimited Visits (Within 10 days (routine)) - Closed Specialty Diagnoses / Procedures Referred By Contact Referred To Contact GI NUTRITION/IM / Gastroenterology Diagnoses Obesity Intestinal postoperative nonabsorption Adrian Leung MD [address] [phone] Referral ID Status Reason Start Date Expiration Date V isits Requested Visits Authorized [id number] Closed Specialty Services Required 08/03/[phone] Encounter Details Date Type Department Care Team (Latest Contact Info) Description 03/18/2024 2:00 PM EDT [facility] [address] [place] [address] Gail Loza PA-C [address] [place] [address] Intestinal postoperative nonabsorption*; DM type 2, not at goal (HCC) Allergies Active Allergy Reactions Criticality Noted Date Comments Amoxicillin-Pot Clavulanate Itching 11/04/19 10 Ibuprofen 04/26/2010 Penicillins 03/19/2003 itching Other reaction(s): Itching documented as of this encounter (statuses as of 03/18/2024) Medications Medication Sig Dispensed Refills Start Date End Date Status HYDROXYZINE HCL 50 MG PO TABS 1 tab 3 x daily as needed Active MONTELUKAST SODIUM 10 MG PO TABS one daily Active PAROXETINE HCL 30 MG PO TABS 1 tab daily 0 4 Active PROAIR HFA 108 (90 BASE) MCG/ACT IN AERS USE 2 PUFFS 4 TIMES A DAY NEEDED 0 4 Active Acetaminophen ER (TYLENOL ARTHRITIS PAIN) 650 MG TBCR 1 tab 3 x daily as needed Active polyethylene glycol 3350 (MIRALAX) packetIndications:I ntestinal postoperative nonabsorption Take 17 g by mouth as needed. Active Clindamycin HCl 300 MG CapsuleIndications: before dental procedures Indications: before dental procedures 0 6 Active PREVIDENT 5000 DRY MOUTH 1.1 % gelIndications:thre e times a day Use as directed. 0 6 Active OxyCODONE HCl 10 MG Tablet 1 tab every 6 hrs as needed 0 7 Active Multiple Minerals-Vitamins (CALCIUM CITRATE PLUS) TABS Take 600 mg by mouth 2 times a day. Active nystatin (NYAMYC) 132554 UNIT/GM powderIndications:a s needed Apply topically to affected area 3 times a day. Apply to belly Active Pediatric Zdvezitb-Nobbekax-S (FLINTSTONES COMPLETE) 60 MG chewable tablet Take 1 Tab by mouth 2 times a day. Active Levocetirizine Dihydrochloride 5 MG Tablet Take 5 mg by mouth every evening. Active Probiotic Product (PROBIOTIC ACIDOPHILUS BIOBEADS) Capsule Take 1 Cap by mouth daily. Active Dextran 70-Hypromellose, PF, ([employer] NATURAL TEARS) 0.1-0.3 % SOLNIndications:as directed Instill into eye. Indications: as directed Active Artificial Saliva (BIOTENE DRY MOUTH MOISTURIZING) SOLNIndications:spr ay and wesley Apply to the mouth or throat. Indications: spray and wesley Active atorvaSTATin (LIPITOR) 40 MG Tablet Take 40 mg by mouth daily. Active Cyanocobalamin (VITAMIN B-12) [address] 1,000 mcg under the tongue daily. Active bumetanide (BUMEX) 1 MG TabletIndications:a s directed, as needed, when pt does take it she takes 2 days in a row usually Take 1 Tab by mouth daily as needed (edema). Indications: as directed, as needed, when pt does take it she takes 2 days in a row usually 0 Active Calcitriol 0.5 MCG Oral Capsule (Rocaltrol) 2 Active Mirtazapine 30 MG Oral Tablet (Remeron) TAKE 1 TABLET BY MOUTH EVERYDAY AT BEDTIME 2 Active Eliquis 5 MG Oral Tablet Take 1 Tablet by mouth in the morning and 1 Tablet before bedtime. 3 Active Ozempic (2 MG/DOSE) 8 MG/3ML Subcutaneous Solution Pen-injector INJECT 2 MG SUBCUTANEOUSLY WEEKLY 4 Active oxyCODONE HCl 5 MG Oral Tablet (Oxy IR) TAKE 2 TABLETS (10 MG) BY MOUTH EVERY 8 HOURS NEEDED(180/MONTH OF 5MG TABS) 4 Active omeprazole (PRILOSEC) 40 MG CPDR Two capsules ( one in the morning and one at night- daily) 1 7 03/18/20 24 Discontinued documented as of this encounter (statuses as of 03/18/2024) Active Problems Problem Noted Date Diagnosed Date Subclinical hyperthyroidism 07/27/2014 Autonomous thyroid nodule 07/27/2014 KEYLA (obstructive sleep apnea) 03/29/2012 Overview: Original AHI was 102 in 2009. 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 THAO RESEARCH OTHER*[id number] 03/14/2010 Asthma with severity to be determined 01/27/2010 Overview: Per Asthma Taxonomy ICD-10 update of inactive term DM type 2, not at goal 12/06/2009 Obesity, morbid (more than 1 00 lbs over ideal weight or BMI > 40) 12/06/2009 Overview: ICD-10 update of inactive term MALIG JUDI CORPUS UTERI 03/19/2003 documented as of this encounter (statuses as of 03/18/2024) Resolved Problems Problem Noted Date Diagnosed Date Resolved Date Adult body mass index 60.0-69.9 06/08/2010 08/15/2011 Obstructive sleep apnea 05/27/201008/07 Overview: 05/28/10 auto 5 to 16cm of water ICD-10 update of inactive term Asthma, allergic 12/06/2009 01/27/2010 documented as of this encounter (statuses as of 03/18/2024) Immunizations Name Administration Dates Next Due Seasonal Influenza, Split, IIV3, With Preserve, Inj 06/08/2015,06/25/2014 documented as of this encounter Social History Tobacco Use Types Packs/Day Years Used Date Smoking Tobacco: Never Smokeless Tobacco: Never Alcohol Use Standard Drinks/Week Comments Yes 0 (1 standard drink = 0.6 oz pur e alcohol) rarely PHQ-2 Answer Date Recorded PHQ-2 Score -1 06/09/2018 Sex and Gender Information Value Date Recorded Sex Assigned at Not on file Gender Identity Not on file Sexual Orientation Not on file documented as of this encounter Last Filed Vital Signs Vital Sign Reading Time Taken Comments Blood Pressure - - Pulse - - Temperature - - Respiratory Rate - - Oxygen Saturation - - Inhaled Oxygen Concentration - - Weight 79.8 kg (176 lb) 03/18/2024 4:12 PM EDT Height - - Body Mass Index 32.19 06/05/2019 12:51 PM EDT documented in this encounter Progress Notes * Gail Loza PA-C - 03/18/2024 2:05 PM EDT After connecting to the patient via telephone, the patient was identified by name and date of . Patient was then informed that this was a telephone call only visit. The patient agreed to participate. Visit Disposition: Routine follow-up Total call duration was 30 minutes. [facility] Note PCP-Adi Leung MD Gastroenterology- Megan Mejia PA-C ([place])- has not seen few years Cardiology- Dr Lan ([place]) Dr Bernardino Knight -nephrology ([place]) Dr Fabricio Nazario (left practice seeing [place] now) -hematology Deborahkentrell Wood is a 73 year old White female with a past medical history for anxiety disorder, diabetes mellitus, insulin requiring, hypercholesterolemia, hypertension and morbid obesity, who presents to the [facility] for further recommendations. The patient is s/p open Gastric Bypass by Dr. Dietz on June 27, 2010. At the time of her surgery, the patient weighed 355 pounds. She reports her most recent weight is about 176# With a total weight loss of 179 pounds. The patient's initial weight in our clinic was 386; total weight loss is 210# Wt Readings from Last 4 Encounters: 11/09/22 99.8 kg (220 lb) 04/28/21 99.8 kg (220 lb) 02/17/20 99.8 kg (220 lb) 06/05/19 93.7 kg (206 lb 8 oz) Current meal plan: Stage 4 Review of Symptoms: 03/18/24 -it has been over year since I have talked to Deborah erin. Overall doing okay. Still burning her candidate both ends " taking care of her Lucila-on dialysis recent heart procedure - since I seen her last she was started on Ozempic for an elevation of her A1c. She has lost approximately 50 lb since then. -recent A1c better at 5.8. We will function has been relatively stable. -follows with Nephrology, Cardiology and Hematology. -on chronic opioids for pain Has been off of PPI and Carafate. No real appetite. Did have episode of vomiting the other day. History of ulcers. Eating small amounts. One protein shake a day. Reviewed medication list. See scanned labs Due for yearly vitamin levels 11/26 Last spoke with 04/27- Phone call with Dr Lujan in Jul 27- Poor Lucila broke his ankle coming home from dialysis. Overall she has been doing ok. Swallowing ok prolia ok per nepho - Will be seeing osteoporosis clinic GFR 26 Off coumadin -eliquis Below from 04/27 appt- Overall doing about the same since our last conversation. She notes that she has to remember to take care of herself as she is busy working about her Lucila and his medical problems. He has been on dialysis now, was evaluated for renal transplant, but he needs to lose 30 lb 1st. She has beentrying to consciously increase her protein intake, using a lot of protein shakes. Still does not have much of an appetite most days. Other days she has cravings- chocolate has been her go to recently. She has had follow-up with her kidney doctor, per reconciliation of medications her calcitriol had been increased. She would met with endocrinology. She has been off of thyroid medication for few weeks they are going to recheck her numbers. She has held off on starting Prolia for her osteopenia/porosis. A1c 6.5 beginning of the year not on any antidiabetic medications. Ongoing iron deficiency follows with Hematology. I do not have recent function available you. Reviewed check copper zinc and vitamin-A this summer, all were within normal limits Still difficulties with sleep. Has been on mirtazapine Continues with arthritis and fibromyalgia pain. Augmentin [amoxicillin-pot clavulanate], Ibuprofen, and Penicillins Current Outpatient Medications Medication Sig Dispense Refill Ozempic (2 MG/DOSE) 8 MG/3ML Subcutaneous Solution Pen-injector INJECT 2 MG SUBCUTANEOUSLY WEEKLY oxyCODONE HCl 5 MG Oral Tablet (Oxy IR) TAKE 2 TABLETS (10 MG) BY MOUTH EVERY 8 HOURS NEEDED(180/MONTH OF 5MG TABS) HYDROXYZINE HCL 50 MG PO TABS 1 tab 3 x daily as needed MONTELUKAST SODIUM 10 MG PO TABS one daily PAROXETINE HCL 30 MG PO TABS 1 tab daily 0 PROAIR HFA 108 (90 BASE) MCG/ACT IN AERS USE 2 PUFFS 4 TIMES A DAY NEEDED 0 Acetaminophen ER (TYLENOL ARTHRITIS PAIN) 650 MG TBCR 1 tab 3 x daily as needed polyethylene glycol 3350 (MIRALAX) packet Take 17 g by mouth as needed. Clindamycin HCl 300 MG Capsule Indications: before dental procedures 0 PREVIDENT 5000 DRY MOUTH 1.1 % gel Use as directed. 0 OxyCODONE HCl 10 MG Tablet 1 tab every 6 hrs as needed 0 Multiple Minerals-Vitamins (CALCIUM CITRATE PLUS) TABS Take 600 mg by mouth 2 times a day. nystatin (NYAMYC) 506114 UNIT/GM powder Apply topically to affected area 3 times a day. Apply to belly Pediatric Fozbhcoo-Byynotdd-Y (FLINTSTONES COMPLETE) 60 MG chewable tablet Take 1 Tab by mouth 2 times a day. Levocetirizine Dihydrochloride 5 MG Tablet Take 5 mg by mouth every evening. Probiotic Product (PROBIOTIC ACIDOPHILUS BIOBEADS) Capsule Take 1 Cap by mouth daily. Dextran 70-Hypromellose, PF, ([employer] NATURAL TEARS) 0.1-0.3 % SOLN Instill into eye. Indications: as directed Artificial Saliva (BIOTENE DRY MOUTH MOISTURIZING) SOLN Apply to the mouth or throat. Indications: spray and wesley atorvaSTATin (LIPITOR) 40 MG Tablet Take 40 mg by mouth daily. Cyanocobalamin (VITAMIN B-12) [address] 1,000 mcg under the tongue daily. bumetanide (BUMEX) 1 MG Tablet Take 1 Tab by mouth daily as needed (edema). Indications: as directed, as needed, when pt does take it she takes 2 days in a row usually Calcitriol 0.5 MCG Oral Capsule (Rocaltrol) Mirtazapine 30 MG Oral Tablet (Remeron) TAKE 1 TABLET BY MOUTH EVERYDAY AT BEDTIME Eliquis 5 MG Oral Tablet Take 1 Tablet by mouth in the morning and 1 Tablet before bedtime. No current facility-administered medications for this visit. There were no vitals filed for this visit. There is no height or weight on file to calculate BMI. PHYSICAL EXAMINATION: Speaking in full sentences on phone, unlabored breathing. Anxious Assessment/Plan: S/P Gastric Bypass Surgery -- Continues to do well! -->> Will continue with Stage 4 meal plan. -->> The patient will continue daily multivitamins. -->> daily calcium supplements at Stage 4. -->> Vitamin B12 po Her vitamin-A, copper, zinc levels are normal.--- lab slip mail to patient for check Her iron levels have been managed by her client account assistant PTH and vitamin-D managed by Nephrology DIABETES: On 2 mg of Ozempic. See controlled. Has lost approximately 50 lb in the last year. Likely not meeting protein or calorie needs. May consider reducing dose of Ozempic DJD - S/p TKR. Still with pain. Fibromyalgia. Chronic opioids OBSTRUCTIVE SLEEP APNEA: Stopped wearing CPAP after bariatric surgery. Afib/edema- following with cards. Currently on Bumex. Wonders if she is dehydrated. May need reassessment of dose with significant weight loss HYPERCHOLESTEROLEMIA: statin Hx of anemia: Multifactorial f/u hematology. Dr Nazario. S/p IV iron 6 month Gail Loza PA-C documented in this encounter Plan of Treatment Health Maintenance Due Date Last Done Comments DXA Scan 1951 DTaP,Tdap,and Td Vaccines (1 - Tdap) 1970 Mammogram 1991 Cologuard 1996 Colonoscopy 1996 Sigmoidoscopy 1996 Zoster Vaccines (1 of 2) 2001 Albumin/Creatinine Ratio 11/05/2013 11/05/2012, 08/06 Diabetic Foot Exam 07/27/2015 07/27/2014 HbA1c 11/23/2016 05/25/2016, 02/2014, 11/05/2012, Additional history exists Colorectal Cancer Screening 01/18/2018 Fecal Occult Blood Test 01/18/2018 01/18/2017 Depression Screening 01/29/2019 01/29/2018 Pneumococcal Vaccine: 65+ Years (2 of 2 - PCV) 06/06/2019 06/06/2018 GFR 06/05/2020 06/05/2019, 04/0 04/2019, 06/18/2018, Additional history exists Lipid Panel 05/25/2021 05/25/2016, 04/0 09/2012, 08/15/2011, Additional history exists *SPIROMETRY ONCE FOR ASTHMA-ADULT 06/29/2022 Diabetic Eye Exam 03/14/2023 03/14/2022, , 04/30/2020 COVID-19 Vaccine ( season) 2023 Influenza Vaccine (FLU shot) (#1) 2024 06/08/2015, 06/25/2014 HPV (Gardasil) Vaccine Aged Out No lo nger eligible based on patient's age to complete this topic Hepatitis B Vaccine Aged Out No longe r eligible based on patient's age to complete this topic MENINGOCOCCAL (MENACTRA/MENVEO) Aged Out No longer eligible based on patient's age to complete this topic documented as of this encounter Medical Devices Not on filedocumented as of this encounter Visit Diagnoses Diagnosis Intestinal postoperative nonabsorption- Primary Other and unspecified postsurgical nonabsorption DM type 2, not at goal (HCC) Type II or unspecified type diabetes mellitus without mention of complication, not stated as uncontrolled documented in this encounter Advance Directives * Full Code (Latest Code Status on File) Date Activated Date Inactivated Comments 06/27/2010 2:39 PM 06/29/2010 10:39 PM This orde r reflects the patients wishes and were consensually agreed upon. * Full Code Date Activated Date Inactivated Comments 06/27/2010 9:44 AM 06/27/2010 2:39 PM This order reflects the patients wishes and were consensually agreed upon. Care Teams Assembling Machine Operator Relationship Specialty Start Date End Date Adrian Leung MD [address] [place] [address] PCP - General Family Medicine 03/01/15 documented as of this encounter
--- OUTSIDE RECORDS SUMMARY | 2024-05-01 01:43 | External Medical Summary | Summary of Care ---
Author Name Unknown Organization [facility] Address [address] [place] [address] Phone [phone] Care Team Providers Care Structural Iron Worker Name Role Phone Adrian Leung MD Primary Care Provider + [phone] Reason for Visit * Evaluate & Treat - Unlimited Visits (Within 10 days (routine)) - Closed Specialty Diagnoses / Procedures Referred By Contact Referred To Contact GI NUTRITION/IM / Gastroenterology Diagnoses Obesity Intestinal postoperative nonabsorption Adrian Leung MD [address] [place] [phone] Referral ID Status Reason Start Date Expiration Date V isits Requested Visits Authorized [id number] Closed Specialty Services Required 08/03/[phone] Encounter Details Date Type Department Care Team (Latest Contact Info) Description 03/18/2024 2:00 PM EDT [facility] [address] [place] [address] Gail Loza PA-C [address] [place] [address] Intestinal postoperative nonabsorption*; DM type 2, not at goal (HCC) Allergies Active Allergy Reactions Criticality Noted Date Comments Amoxicillin-Pot Clavulanate Itching 11/04/19 10 Ibuprofen 04/26/2010 Penicillins 03/19/2003 itching Other reaction(s): Itching documented as of this encounter (statuses as of 04/23/2024) Medications Medication Sig Dispensed Refills Start Date [...] 2 times a day. Active nystatin (NYAMYC) 061820 UNIT/GM powderIndications:a s needed Apply topically to affected area 3 times a day. 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 THAO RESEARCH OTHER*[id number] 03/14/2010 Asthma with severity to be determined 01/27/2010 Overview: Per Asthma Taxonomy ICD-10 update of inactive term DM type 2, not at goal 12/06/2009 Obesity, morbid (more than 1 00 lbs over ideal weight or BMI > 40) 12/06/2009 Overview: ICD-10 update of inactive term MALIG JUDI CORPUS UTERI 03/19/2003 documented as of this encounter (statuses as of 04/23/2024) Resolved Problems Problem Noted Date Diagnosed Date Resolved Date Adult body mass index 60.0-69.9 06/08/2010 08/15/2011 Obstructive sleep apnea 05/27/201008/07 Overview: 05/28/10 auto 5 to 16cm of water ICD-10 update of inactive term Asthma, allergic 12/06/2009 01/27/2010 documented as of this encounter (statuses as of 04/23/2024) Immunizations Name Administration Dates Next Due Seasonal Influenza, Trivalen t, (IIV3), with Preserv, (Fluzone) 06/08/2015,06/25/2014 documented as of this encounter Social [...] 30 minutes. [facility] Note PCP-Aid Leung MD Gastroenterology- Megan Mejia PA-C ([place])- has not seen few years Cardiology- Dr Lan ([place]) Dr Bernardino Knight -nephrology ([place]) Dr Fabricio Nazario (left practice seeing PA [...] year since I have talked to Deborah last. Overall doing okay. Still burning her candidate [...] mouth 2 times a day. nystatin (NYAMYC) [id number] UNIT/GM powder Apply topically to affected area 3 times a day. Apply to belly Pediatric Vyjdketf-Nbhzboyt-I (FLINTSTONES COMPLETE) 60 MG chewable tablet Take [...] iron levels have been managed by her starch dumper PTH and vitamin-D managed by Nephrology DIABETES: [...] Date Last Done Comments DXA Scan 1951 DTap/Tdap Vaccines (1 - Tdap) 1970 Mammogram 1991 [...] 03/14/2022, , 04/30/2020 COVID-19 Vaccine ( season) 2024 Influenza Vaccine (FLU shot) (#1) 2024 06/08/2015, [...] and were consensually agreed upon. Care Teams Structural Iron Worker Relationship Specialty Start Date End Date Adrian Leung MD [address] [place] [address] PCP - General Family Medicine 03/01/15 documented as of this encounter
[2024-05-01] MEDS ORDERED: Nursing to Pharmacy Communication SCH (05:30)
[2024-05-01 07:44] LABS: Estimated Average Glucose 137 mg/dl; Hemoglobin A1C 6.4 % (4.5-5.6)
[2024-05-01 07:54] VITALS: O2SAT 96
[2024-05-01] MEDS: SUCRALFATE 1 GM/10 ML UDC PO PRN (08:15)
[2024-05-01] MEDS: CALCITRIOL 0.25 MCG CAPSULE PO SCH (08:15)
[2024-05-01] MEDS: CYANOCOBALAMIN (B-12) 500 MCG TABLET PO SCH (08:15)
[2024-05-01] MEDS: MULTIVITAMIN TAB PO SCH (08:15)
[2024-05-01] MEDS: ATORVASTATIN 40 MG TAB PO SCH (08:15)
[2024-05-01] MEDS: CHOLECALCIFEROL 25 MCG (1000 UNITS) TAB PO SCH (08:15)
[2024-05-01] MEDS: MONTELUKAST SODIUM 10 MG TABLET PO SCH (08:15)
[2024-05-01] MEDS: PARoxetine HCL 20 MG TAB PO SCH (08:15)
[2024-05-01] MEDS: FAMOTIDINE 40 MG TABLET PO SCH (08:16)
--- NOTE | 2024-05-01 08:36 | Pharmacy Report ---
Pharmacy Glycemic Short Note 2 - Date of Service May 01, 2024 - Glycemic Short BSG Results (Last 24 hours): 04/30/24 04/30/24 05/01/24 14:04 22:32 00:06 Glucose 151 H 131 H POC Glucose 126 H 05/01/24 07:19 Glucose POC Glucose 113 H OUTPATIENT ANTIDIABETIC REGIMEN: * Ozempic 2mg SQ weekly on sundays HbA1c 6.4% on 04/30/24 ASSESSMENT: * VEL is a 73 yo female who presented to the ED last evening for nausea, vomiting, and abdominal pain that has been ongoing for the last week. Patient's oral intake has been declining due to this. * Significant PMH: stage III CKD, gastric bypass, and T2DM * Blood sugar on presentation 04/30 was 151. Only 1 unit of bolus insulin has been needed/given as of this morning. * Originally NPO but now ordered diet. PLAN FOR INPATIENT GLYCEMIC CONTROL: * Hold outpatient diabetes medications * No basal insulin needed as of now. * Bolus insulin * NovoLog per scale ACHS or Q6hrs while NPO * Goal Range: Low 110 mg/dL - High 150 mg/dL * Correction Factor: 50 mg/dL/unit * Nutritional / Prandial insulin per carb ratio of 1 unit per 25 grams CHO consumed
[2024-05-01 09:38] LABS: Basophils # (auto) 0.03 K/uL (0.00-0.20); Basophils % (auto) 0.3 %; Eosinophils % (auto) 2.2 %; Hematocrit (blood only) 31.1 % (37.0-47.0); Hemoglobin 9.9 g/dl (12.0-16.0); Immature Granulocytes # (auto) 0.19 K/uL (0.01-0.20); Immature Granulocytes % (auto) 2.1 %; Lymphocytes % (auto) 24.6 %; Mean Corpuscular Hemoglobin 26.7 pg (25.0-34.0); Mean Corpuscular Hgb Conc 31.8 g/dL (32.0-36.0); Mean Corpuscular Volume 83.8 fL (80.0-100.0); Mean Platelet Volume 10.3 fL (9.4-12.4); Monocytes # (auto) 0.85 K/uL (0.11-0.59); Monocytes % (auto) 9.5 %; Neutrophils # (auto) 5.46 K/uL (1.40-6.50); Neutrophils % (auto) 61.3 %; Platelet Count 304 K/uL (130-400); RDW Standard Deviation 45.2 fL (36.4-46.3); Red Blood Count 3.71 M/uL (4.20-5.40); White Blood Count 8.93 K/ul (4.8-10.8)
[2024-05-01 11:21] LABS: BUN Creatinine Ratio 28.9 (10-20); Creatinine Clr Calc Pharmacy 25.8 ml/min; Est GFR (Non-African American) 25.9 ml/min; Magnesium 1.9 mg/dl (1.7-2.4); Potassium 3.2 mmol/L (3.5-5.1)
[2024-05-01 11:38] VITALS: BP 116/73; RESP 20; TEMP 97.7
[2024-05-01] MEDS: POTASSIUM CHLORIDE CRTAB 20 MEQ TABCR PO STA (12:14)
[2024-05-01] MEDS: POTASSIUM CHLORIDE / WTR 10 MEQ/100 ML PLCT IV SCH (12:24)
--- NOTE | 2024-05-01 12:41 | Discharge Summary ---
Discharge Summary Date of Service May 01, 2024 Principal Dx & Hospital Course #1 = Principal Diagnosis (1) Nausea: Nausea/vomiting History of gastric bypass and gastric Ulcer. Does not have GI follow up - [facility] referral placed for outpatient f/u CT with no evidence of SBO. Mild enteritis not excluded Suspect viral illness, passing but with volume contraction and severe electrolyte depletion Stool bio fire not obtained d/t formed stool nausea, vomiting and diarrhea have resolved. Hypokalemic at 3.2 day of discharge, 60meq given between PO and IV prior to discharge. Consider recheck next week trial of PPI for 30 days (2) Chronic heart failure with preserved ejection fraction: HFpEF Bumex temporarily held for volume contraction - can resume sunday No evidence of acute on chronic CHF on admission Chest x-ray is cardiomegaly without acute process Troponin is minimally elevated 41 and downtrending at 31, clinically without chest pain. Suspect demand ischemia with poor renal clearance (3) CKD (chronic kidney disease) stage 3, GFR 30-59 ml/min: Baseline creatinine around 22.5 Admitting creatinine 2.18 (4) Type 2 diabetes mellitus: Type II DM Basal continued. Patient takes Ozempic on Sundays. Basal insulin held. - Ozempic also had priorly held as this can contribute to nausea/vomiting, although she has been tolerating this for several weeks, recommend discussion with prescribing provider (5) Atrial fibrillation: Continue Eliquis Admitting EKG A-fib without RVR, inferior T wave inversions are present. No territorial ST segment changes (6) Obstructive sleep apnea: CPAP at bedtime as needed Plan Dispo: discharge to home today family updated at bedside by Dr. mccurdy Notes For Next Care Provider consider K recheck outpatient GI referral placed Medication Changes From Visit protonix added for 30 days Admission HPI Per Admitting Provider Deborah is a 73-year-old female with a past medical history of gastric bypass, A-fib on apixaban, hypertension, diastolic heart failure, CKD, dyslipidemia who presents to the ER with abdominal pain nausea/vomiting over the last week with poor p.o. tolerance. She has had bowel movements but decreased in size, she is passing flatus. She feels overall very fatigued and weak, and is hypokalemic at 2.8 on ER evaluation. She is recommended for admission for intractable nausea/vomiting Deborah reports that in the last week she is felt very nauseous, intermittently like she is needed to vomit, and has had small amounts of emesis of liquids. She does feel that this is slowly starting to improve in the last day or 2 and she is able to walk without getting nauseous, but felt very weak and washed out and has gotten dehydrated before. She has a history of gastric bypass. CT does not show any evidence of obstruction. She has passed a small amount of gas and had small bowel movement, but a little less than normal. She denies abdominal pain. Denies fever chills or sweats. Denies chest pain chest pressure shortness of breath. She denies muscle cramps. She was able to take her medicines this morning. Medical History: Reviewed Medications: Reviewed Surgical History: Reviewed Family history: Reviewed Allergies: Reviewed Social History: Reviewed Code Status: Full Discharge Exam General: NAD, VS as above Resp: normal respiratory effort, lungs clear to auscultation CV: afib, no murmur, Abd: normal bowel sounds, soft non tender, Extremities: Moves all extremities, no edema Neuro: A&O x3, Skin: intact, no lesions noted Discharge Plan Discharge Items Patient Disposition: Home - Self-Care Reason For Visit: N/V, HYPOKALEMIA Discharge Diagnosis: nausea, hypokalemia Activity: Resume your previous activity Non-emergency contact: Primary Care Provider Call non-emergency contact if: you have any medication questions, your symptoms worsen, your pain is not controlled, your pain is worsening and your temperature is above 101 Follow-up/Referrals: Adrian Leung [Primary Care Provider] - 05/06/24 2:30 pm (Primary Care Hospital follow up is scheduled for May 06, 2024 at 2:30pm in the [place] [facility].) Fanta Fonseca CRNP [Nurse Practitioner] - (hx of gastric ulcers ) Diet: Carb Consistent or DM2 and Heart Healthy Addtl Attending Provider Instructions: Wood, You were hospitalized after worsening diarrhea, nausea and vomiting. Thankfully these symptoms has resolved with fluids and replacing your electrolytes. Your potassium was improving day of discharge to 3.2 and you were given 60 meq of supplementation prior to discharge. Your PCP may want to check labs next week. Thankfully, the CT scan did not show at obstruction causing your pain. Likely, there was some sort of viral illness that causes your symptoms. Focus on staying hydrated and maintaining a well balanced diet. I have attached information about a low fiber diet, that you should try to follow until your stool pattern becomes more normal. There is a possibility that this was caused by the ozempic injection. I would recommend discussing this with your prescriber before continuing. Would recommend trial of Protonix to help protect your stomach lining in case there was inflammation or a small ulcer causing some of your symptoms. This was sent to the pharmacy and is best taken 30-60 before a meal (preferably breakfast). I have also sent the GI referral. In regards to your - I provided you with a list of private duty caregivers (these would be out of pocket expenses for you) for someone to help relieve your caregiver burden. If he has medical needs, insurance will sometimes cover home health nursing and therapy and you could ask his PCP about ordering that for him. Hold Bumex tomorrow and resume on Sunday if needed. Activity: You can do normal everyday activities as your body allows. Take rest breaks if you feel tired. Do not overexert. Stop activity if you have pain, shortness of breath or feel dizzy. Follow-up appointments: Make an appointment with your primary care physician within one week of discharge. A copy of this summary will be sent to them. Every time you see your primary care physician, or any other doctor, bring your medication list, and a list of questions. CONTACT YOUR PRIMARY CARE PROVIDER if you experience any of the following: Shortness of breath or difficulty breathing Fevers or chills Feeling tired with normal activity or experiencing dizziness or fainting Difficulty following your treatment plan, or difficulty taking medications CALL 911 OR GO TO THE EMERGENCY DEPARTMENT if you experience any of the following: Severe abdominal pain or nausea/vomiting Severe chest pain, or chest pain that radiates (moves) to your jaw or arm Sudden, severe shortness of breath or difficulty breathing Thank you for allowing us to participate in your care. Pending Studies at Discharge: No Stand-Alone Forms: My [facility] [place], Smoking Cessation Medications and DC Order Prescriptions: New pantoprazole [Protonix] 40 mg tablet,delayed release (DR/EC) 40 mg PO DAILY Qty: 30 0RF Continued calcitriol 0.5 mcg capsule 1 mcg PO DAILY Qty: 180 3RF Eliquis 5 mg tablet 5 mg PO BID Qty: 180 3RF polyethylene glycol 3350 [Miralax] 17 gram/dose powder 17 g PO DAILY PRN (Reason: Constipation) atorvastatin 40 mg tablet 40 mg PO DAILY oxycodone 10 mg tablet 10 mg PO Q8H PRN (Reason: Pain) Saccharomyces boulardii [Daily Probiotic (S. boulardii)] 1 tab PO DAILY nystatin [Nyamyc] 100,000 unit/gram powder 1 applic topical DAILY PRN (Reason: Other) acetaminophen 650 mg tablet extended release 650 mg PO Q12H PRN (Reason: Pain) clindamycin HCl 300 mg capsule 300 mg PO ONCE PRN (Reason: Other) multivitamin [Daily Multi-Vitamin] Tablet 1 tab PO DAILY Natural Tears (PF) 0.1-0.3 % dropperette 1 drp ophthalmic (eye) DAILY PRN (Reason: Other) montelukast 10 mg tablet 10 mg PO DAILY calcium [calcium citrate] 600 mg PO BID cholecalciferol (vitamin D3) 1 cap PO DAILY hydroxyzine HCl 50 mg tablet 50 mg PO TID PRN (Reason: itching) albuterol sulfate 90 mcg/actuation HFA aerosol inhaler 2 puffs inhalation Q6H PRN (Reason: shortness of breath or wheezing) paroxetine HCl 30 mg tablet 40 mg PO DAILY sucralfate 100 mg/mL suspension 100 mg PO QID PRN (Reason: Other) mecobalamin (vitamin B12) 1,000 mcg lozenge 1,000 mcg PO DAILY Rx Instructions: allow to dissolve in mouth OR may chew lightly before swallowing mirtazapine 30 mg tablet 30 mg PO QPM famotidine 40 mg tablet 40 mg PO DAILY Qty: 90 2RF Held bumetanide 1 mg tablet 1 mg PO DAILY PRN (Reason: edema) Qty: 90 3RF Hold Instructions: Resume on 05/03/24. Ozempic 2 mg/dose (8 mg/3 mL) pen injector 2 mg SUBCUT WK Hold Instructions: Resume on 05/08/24. Discuss with prescribing provider before resuming Discharge Orders: Discharge Order (Routine); Ordered 05/01/24 Ordered By: Anca Sadler/Other Patient Handouts: Managing Type 2 Diabetes Admission Data Admit Date/Time: 04/30/24 18:37 Attending Provider: Jonathan Mccurdy Admit Provider: Weston Sultana Primary Care Provider: Adrian Leung Other Providers: Weston Sultana Other Interventions: Discharge Summary Assessment (RN) Last Done: 05/01/24 13:28 Hospital Stay Data Consultations 04/30/24 16:59 ED Decision to Admit Stat Diagnostic Imagining Performed Abdomen/Pelvis CT 04/30/24 14:42 CT abd pelvis wo con CLINICAL HISTORY: abdominal pain; vomiting, diarrhea TECHNIQUE: Helical axial images of the abdomen and pelvis were obtained. Automated dose lowering techniques and/or adjustment according to patient size were utilized for this exam. This exam was performed without intravenous contrast. CT DOSE: 1074.25 mGy.cm COMPARISON: Comparison is made to CT abdomen pelvis 09/16/2018 FINDINGS: Lower chest: Bibasilar atelectasis versus scarring is seen. Liver: Unremarkable. No focal lesions are seen. Gallbladder and biliary tree: No calcified gallstones. Normal caliber wall. No intra- or extrahepatic biliary ductal dilation. Pancreas: Unremarkable, no focal lesions. Spleen: Unremarkable. Adrenals: Unremarkable. Kidneys and ureters: Nonobstructive nephrolithiasis is seen. Bladder: Unremarkable. Reproductive organs: Unremarkable. Bowel: The appendix is normal. Postsurgical changes of gastric bypass are seen with a small hiatal hernia. There is no definite small bowel dilation, there is mild prominence of the helm of the loops of the left hemiabdomen. Lymph nodes Retroperitoneal: Unremarkable. Pelvic: Unremarkable. Mesenteric: Unremarkable. Peritoneum: Normal. Vessels: Atherosclerotic calcifications are seen. Abdominal wall: Unremarkable. Bones: Degenerative changes in the visualized spine. IMPRESSION: No acute abnormalities and in particular no evidence of bowel obstruction. A mild enteritis cannot be excluded. Postsurgical changes of gastric bypass are seen. ACT 112: Negative or not required by law. Electronically signed by: Chapincito Dewitt M.D. 04/30/2024 3:12 PM Chest X-Ray 04/30/24 16:21 XR chest 1V portable HISTORY: 73 years-old Female weakness acute weakness COMPARISON: 05/21/2012 TECHNIQUE: AP view of the chest FINDINGS: Cardiac silhouette is enlarged. Atherosclerosis of the aorta. No pneumothorax, pleural effusion or airspace consolidation. The bones appear intact. IMPRESSION: Cardiomegaly without acute process. ACT 112: Negative or not required by law. The above report was generated using voice recognition software. It may contain grammatical, syntax or spelling errors. Electronically signed by: Truong Alegria M.D. 04/30/2024 5:21 PM Pending Results Patient Have Any Pending Studies at Discharge: No Discharge Instructions Given to Patient (Per Discharging Provider) Ms. Wood, You were hospitalized after worsening diarrhea, nausea and vomiting. Thankfully these symptoms has resolved with fluids and replacing your electrolytes. Your potassium was improving day of discharge to 3.2 and you were given 60 meq of supplementation prior to discharge. Your PCP may want to check labs next week. Thankfully, the CT scan did not show at obstruction causing your pain. Likely, there was some sort of viral illness that causes your symptoms. Focus on staying hydrated and maintaining a well balanced diet. I have attached information about a low fiber diet, that you should try to follow until your stool pattern becomes more normal. There is a possibility that this was caused by the ozempic injection. I would recommend discussing this with your prescriber before continuing. Would recommend trial of Protonix to help protect your stomach lining in case there was inflammation or a small ulcer causing some of your symptoms. This was sent to the pharmacy and is best taken 30-60 before a meal (preferably breakfast). I have also sent the GI referral. In regards to your - I provided you with a list of private duty caregivers (these would be out of pocket expenses for you) for someone to help relieve your caregiver burden. If he has medical needs, insurance will sometimes cover home health nursing and therapy and you could ask his PCP about ordering that for him. Hold Bumex tomorrow and resume on Sunday if needed. Activity: You can do normal everyday activities as your body allows. Take rest breaks if you feel tired. Do not overexert. Stop activity if you have pain, shortness of breath or feel dizzy. Follow-up appointments: Make an appointment with your primary care physician within one week of discharge. A copy of this summary will be sent to them. Every time you see your primary care physician, or any other doctor, bring your medication list, and a list of questions. CONTACT YOUR PRIMARY CARE PROVIDER if you experience any of the following: Shortness of breath or difficulty breathing Fevers or chills Feeling tired with normal activity or experiencing dizziness or fainting Difficulty following your treatment plan, or difficulty taking medications CALL 911 OR GO TO THE EMERGENCY DEPARTMENT if you experience any of the following: Severe abdominal pain or nausea/vomiting Severe chest pain, or chest pain that radiates (moves) to your jaw or arm Sudden, severe shortness of breath or difficulty breathing Thank you for allowing us to participate in your care. Supervising Physician Co-Signing Physician Notes Attending Attestation and Discharge Note: Pt seen/examined, chart reviewed, discharge care plan d/w RADHA Chinchilla. I agree w/ the noonan components of her documentation. 73yo female with history of gastric bypass procedure, gastric ulcer (seen on EGD several years ago at [facility]), T2DM, permanent a.fib on anticoagulation, HTN, CKD stage 3. Presented with abd pain and severe nausea/emesis. The abdominal discomfort was in the upper abdomen. CT a/p at time of admission did not show any acute findings. Patient's symptoms gradually improved while here with supportive care. Of note - respiratory [employer] panel including COVID testing was negative. Additionally, patient had significant hypokalemia - supplemented with IV/PO K. Low K was likely due to vomiting and lack of PO intake in the days leading up to admission. In light of patient's previous gastric ulcer I recommended PPI upon discharge home along with GI f/u for consideration of EGD. This will be arranged. Discharge exam: gen - NAD, pleasant mouth - MMM neck - no JVD heart - RRR, s1 s2 lungs - CTA b/l abd - soft NT ND BS+; no HSM ext - no edema, pulses 2+ b/l Jonathan Mccurdy MD Total Time Total Time Spent Total Time Spent (In Minutes): Time spent day of discharge 40 minutes including direct patient care, medication reconciliation, documentation, review of labs and images, and coordination of care. Coding Level of Care Code 43914 INP/OBS DISCH >30 MIN Diagnoses Nausea R11.0 Chronic heart failure with preserved ejection fraction I50.32 CKD (chronic kidney disease) stage 3, GFR 30-59 ml/min N18.3 Type 2 diabetes mellitus E11.9 Atrial fibrillation I48.91 Obstructive sleep apnea G47.33
[2024-05-01 14:58] VITALS: PULSE 75
--- NOTE | 2024-05-01 22:26 | Electrocardiogram Report ---
Test Reason : Blood Pressure : */* mmHG Vent. Rate : 71 BPM Atrial Rate : * BPM P-R Int : * ms QRS Dur : 96 ms QT Int : 408 ms P-R-T Axes : * 18 -16 degrees QTcB Int : 443 ms Atrial fibrillation with premature ventricular or aberrantly conducted complexes Low voltage QRS T wave abnormality, consider inferior ischemia Abnormal ECG When compared with ECG of 25-Jul-2014 06:51, T wave inversion now evident in Inferior leads Confirmed by Bobby Lan ([id number]) on 05/01/2024 10:25:38 PM Referred By: REFERRED SELF Confirmed By: Bobby Lan
== END 2024-05-01 16:29 | disposition home or self-care (01) | DRG 392 ==
LOC: ED 12:46 → 2S 18:37 → INTOOBSV 18:37 → SUATTDRO 18:37 → 2S 21:04

== ENCOUNTER 2025-03-18 17:45 | Inpatient (IN) ==
--- NOTE | 2025-03-18 17:56 | Emergency Department Note ---
Impression & Plan Acute kidney injury Admission ED Provider Note HPI: History obtained from patient. The patient is a 74-year-old female with history of atrial fibrillation, currently on Eliquis, who presents to the emergency department with a chief complaint of abnormal outpatient lab work. Patient states that she had routine lab work done this morning and she was called today to say that "something was wrong with my kidneys". Patient states she was also told that her hemoglobin was 7.7. Patient denies any gross bleeding per rectum recently, she denies any melena. Patient states generally she has had some headaches since a fall several weeks ago as well as some intermittent dizziness but overall was not feeling severely ill. On arrival here to the ED the patient is alert, she is hemodynamically stable, she does have a large hematoma to the mid aspect of her forehead that she states has been present for the past several weeks since her fall. Patient denies any chest pain or shortness of breath, she denies any abdominal pain. ROS: - Per HPI Differential Diagnosis: Acute blood loss anemia/GI bleed, acute on chronic iron deficiency anemia, acute renal failure, intracranial injury to include subdural hematoma, ACS, CHF, hemorrhagic stroke, amongst other potential pathologies. *Outpatient medications and allergy history reviewed. 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 Lab work shows leukocytosis of 11.4, hemoglobin is 8.2, this appears to be slightly lower than the patient's most recent baseline. Platelet count is normal. CMP shows a mild hypokalemia at 3.2, creatinine is elevated at 5.9 (patient's baseline appears to be around 2.5-3.0 recently). Patient was given IV fluids here in the ED and otherwise remained stable. Troponin is 17.9, patient denies any chest pain, EKG shows rate controlled atrial fibrillation. Low suspicion for ACS. Patient denies any blood per rectum, denies any melena, denies any hematemesis. Patient was given IV fluids for KEKE, I discussed all the above findings with the patient, she is in agreement for admission. Case was discussed with the on-call hospitalist service and the patient was placed for admission to the service of Dr. Urena. Consultants/Discussions held with other healthcare providers: - Hospitalist, Dr. Urena Disposition discussion held by myself with: - Patient Diagnosis: 1. Acute on chronic renal failure 2. Acute on chronic anemia, nonspecific Disposition: Admission Sean Ortiz DO Emergency Medicine Past Med/Surg History Problem List (Updated 03/18/25 @ 20:50 by Sean Ortiz DO) Acute kidney injury (Acute) Atrial fibrillation, permanent Asthma (Chronic) Anemia Dyslipidemia HTN (hypertension) (Chronic) Chronic diastolic heart failure [facility] (current) use of anticoagulants Medical History (Updated 03/18/25 @ 20:50 by Sean Ortiz DO) Chronic heart failure with preserved ejection fraction Obstructive sleep apnea Atrial fibrillation Type 2 diabetes mellitus CKD (chronic kidney disease) stage 3, GFR 30-59 ml/min Hypothyroidism Vitamin B12 deficiency Uterine cancer Esophageal ulcer SBO (small bowel obstruction) Surgical History S/P [id number] (total abdominal hysterectomy and bilateral salpingo-oophorectomy) S/P partial thyroidectomy S/P tonsillectomy S/p total knee replacement, bilateral S/P gastric bypass Open gastric bypass by Dr. Dietz 06/27/2010 S/P cataract surgery Family History Mother Lymphoma Social History Smoking Status: Never smoker Hx Alcohol Use: No Hx Substance Use: No Preferred Language: Tristanian Communication Ability: Effective Auto Design Checker Required: No Beliefs That Will Affect Care: None Current Living Situation: Spouse Current Living Situation Comment: lives at home Feels Safe at Home: Yes Assistive Devices: None Allergies Allergies Allergy/AdvReac Type Severity Reaction Status Date / Time amoxicillin Allergy Intermediate RASH Verified 03/18/25 20:50 clavulanic acid Allergy Intermediate RASH Verified 03/18/25 20:50 ibuprofen Allergy Mild ITCHING Verified 03/18/25 20:50 Penicillins Allergy Mild ITCHING Verified 03/18/25 20:50 Home Meds Home Medications Medication Instructions Recorded Confirmed albuterol sulfate 90 mcg/actuation 2 puffs inhalation Q6H PRN 04/16/19 03/18/25 aerosol inhaler shortness of breath or wheezing hydroxyzine HCl 50 mg tablet 50 mg PO TID PRN itching 04/16/19 01/01/25 paroxetine HCl 30 mg tablet 40 mg PO DAILY 06/22/21 03/18/25 acetaminophen 650 mg 650 mg PO Q12H PRN Pain 12/27/21 03/18/25 tablet,extended release atorvastatin 40 mg tablet 40 mg PO DAILY 12/27/21 01/01/25 dextran 70-hypromellose (PF) 0.1 1 drp ophthalmic (eye) DAILY PRN 12/27/21 01/01/25 %-0.3 % eye drops in a dropperette Other (Natural Tears (PF)) montelukast 10 mg tablet 10 mg PO DAILY 12/27/21 01/01/25 multivitamin (Daily Multi-Vitamin 1 tab PO DAILY 12/27/21 01/01/25 tablet) nystatin 100,000 unit/gram topical 1 applic topical DAILY PRN Other 12/27/21 01/01/25 powder (Nyamyc) oxycodone 10 mg tablet 10 mg PO Q8H PRN Pain 12/27/21 01/01/25 polyethylene glycol 3350 17 17 g PO DAILY PRN Constipation 12/27/21 03/18/25 gram/dose oral powder (Miralax) mecobalamin (vitamin B12) 1,000 1,000 mcg PO DAILY 09/14/22 01/01/25 mcg lozenges mirtazapine 30 mg tablet 30 mg PO QPM 09/14/22 01/01/25 cholecalciferol (vitamin D3) 1 cap PO DAILY 09/06/23 01/01/25 levocetirizine 5 mg tablet 5 mg PO DAILY 01/01/25 01/01/25 vitamin B complex 1 tab PO DAILY 01/01/25 01/01/25 Previous Rx's Medication Instructions Recorded pantoprazole 40 mg tablet,delayed 40 mg PO DAILY #30 tabs 05/01/24 release (Protonix) apixaban 5 mg tablet (Eliquis) 5 mg PO BID #180 tabs 01/01/25 bumetanide 1 mg tablet 1 mg PO DAILY edema #90 tabs 01/23/25 calcitriol 0.5 mcg capsule 1 mcg (2 x 0.5 mcg) PO DAILY #180 02/02/25 caps Results & Data (ED) Vital Signs Vital Signs - 24 hr 03/18/25 17:45 03/18/25 17:48 03/18/25 20:00 Pulse Rate 71 73 Pulse Rate [Finger] 66 Pulse Rhythm [Finger] Regular Pulse Strength [Finger] Normal Respiratory Rate 20 20 20 Respiratory Effort / Characteristics Non-Labored Spontaneous Respiratory Depth Normal Respiratory Pattern Regular Blood Pressure 148/80 H Blood Pressure [Right Arm] 126/84 Blood Pressure Mean 102 Blood Pressure Mean [Right Arm] 98 Blood Pressure Position [Right Arm] Lying Pulse Oximetry 99 98 98 Oxygen Delivery Method Room Air Room Air Room Air Sepsis Recent Fever Within 48 Hours No Sepsis New/Unexplained Change in Mental Status N/A Sepsis Action Taken by Nursing No Action Required 03/18/25 21:00 Pulse Rate Pulse Rate [Finger] 75 Pulse Rhythm [Finger] Regular Pulse Strength [Finger] Normal Respiratory Rate 20 Respiratory Effort / Characteristics Non-Labored Spontaneous Respiratory Depth Normal Respiratory Pattern Regular Blood Pressure Blood Pressure [Right Arm] 151/111 H Blood Pressure Mean Blood Pressure Mean [Right Arm] 124 Blood Pressure Position [Right Arm] Lying Pulse Oximetry 98 Oxygen Delivery Method Room Air Sepsis Recent Fever Within 48 Hours Sepsis New/Unexplained Change in Mental Status Sepsis Action Taken by Nursing Laboratory Data 03/18/25 17:54 03/18/25 17:54 Lab Results 03/18/25 03/18/25 03/18/25 Range/Units 17:54 17:55 18:00 WBC 11.44 H (4.8-10.8) K/ul RBC 2.93 L (4.20-5.40) M/uL Hgb 8.2 L (12.0-16.0) g/dl POC Hgb 8.8 L (12.0-16.0) g/dl Hct 25.5 L (37.0-47.0) % POC Hct 26 L (37-47) % MCV 87.0 (80.0-100.0) fL MCH 28.0 (25.0-34.0) pg MCHC 32.2 (32.0-36.0) g/dL RDW Std Deviation 53.5 H (36.4-46.3) fL RDW Coeff of Jamar 17.0 H (11.5-14.5) % Plt Count 270 (130-400) K/uL MPV 9.7 (9.4-12.4) fL Immature Gran % (Auto) 0.5 % Neut % (Auto) 66.5 % Lymph % (Auto) 22.7 % Sumner % (Auto) 6.0 % Eos % (Auto) 3.4 % Baso % (Auto) 0.9 % Neut # (Auto) 7.60 H (1.40-6.50) K/uL Lymph # (Auto) 2.60 (1.20-3.40) K/uL Sumner # (Auto) 0.69 H (0.11-0.59) K/uL Eos # (Auto) 0.39 (0.00-0.50) K/uL Baso # (Auto) 0.10 (0.00-0.20) K/uL Immature Gran # (Auto) 0.06 (0.01-0.20) K/uL PT 10.5 (9.0-12.0) Seconds INR 1.0 (0.9-1.1) POC Sodium 137 (135-144) mmol/L Sodium 138 (136-145) mmol/L POC Potassium 3.1 L (3.3-5.0) mmol/L Potassium 3.2 L (3.5-5.1) mmol/L POC Chloride 103 (101-112) mmol/L Chloride 103 (98-107) mmol/L Carbon Dioxide 22 (21-32) mmol/L POC Total CO2 21 L (24-31) mmol/L Anion Gap 13 H (3-11) POC Anion Gap 17.0 (16-25) mmol/L POC BUN 71 H (7-18) mg/dl BUN 70 H (6-23) mg/dl Creatinine 5.91 H* (0.6-1.2) mg/dl POC Creatinine 6.2 H* (0.6-1.3) mg/dl Est Cr Clr Drug Dosing Not Reportable eGFR 7.06 BUN/Creatinine Ratio 11.8 (10-20) Glucose 159 H (70-99(Fasting)) mg/dl POC Glucose (other) 149 H (70-99) mg/dl Calcium 9.1 (8.6-10.3) mg/dl POC Ioniz Calcium Noni 1.21 (1.12-1.32) mmol/l Magnesium 2.3 (1.7-2.4) mg/dl Total Bilirubin 0.5 (0.2-1.0) mg/dl AST 51 H (13-39) U/L ALT 56 H (7-52) U/L Alkaline Phosphatase 102 (34-104) U/L Troponin I High Sens 17.9 H (0-14) pg/ml Total Protein 6.9 (6.0-8.3) gm/dl Albumin 4.4 (3.4-5.0) gm/dl Globulin 2.5 (2.5-4.0) gm/dl Albumin/Globulin Ratio 1.8 (0.9-2) Lipase 95 H (11-82) U/L Blood Type O Positive Antibody Screen NEGATIVE 03/18/25 Range/Units 20:42 WBC (4.8-10.8) K/ul RBC (4.20-5.40) M/uL Hgb (12.0-16.0) g/dl POC Hgb (12.0-16.0) g/dl Hct (37.0-47.0) % POC Hct (37-47) % MCV (80.0-100.0) fL MCH (25.0-34.0) pg MCHC (32.0-36.0) g/dL RDW Std Deviation (36.4-46.3) fL RDW Coeff of Jamar (11.5-14.5) % Plt Count (130-400) K/uL MPV (9.4-12.4) fL Immature Gran % (Auto) % Neut % (Auto) % Lymph % (Auto) % Sumner % (Auto) % Eos % (Auto) % Baso % (Auto) % Neut # (Auto) (1.40-6.50) K/uL Lymph # (Auto) (1.20-3.40) K/uL Sumner # (Auto) (0.11-0.59) K/uL Eos # (Auto) (0.00-0.50) K/uL Baso # (Auto) (0.00-0.20) K/uL Immature Gran # (Auto) (0.01-0.20) K/uL PT (9.0-12.0) Seconds INR (0.9-1.1) POC Sodium (135-144) mmol/L Sodium (136-145) mmol/L POC Potassium (3.3-5.0) mmol/L Potassium (3.5-5.1) mmol/L POC Chloride (101-112) mmol/L Chloride (98-107) mmol/L Carbon Dioxide (21-32) mmol/L POC Total CO2 (24-31) mmol/L Anion Gap (3-11) POC Anion Gap (16-25) mmol/L POC BUN (7-18) mg/dl BUN (6-23) mg/dl Creatinine (0.6-1.2) mg/dl POC Creatinine (0.6-1.3) mg/dl Est Cr Clr Drug Dosing eGFR BUN/Creatinine Ratio (10-20) Glucose (70-99(Fasting)) mg/dl POC Glucose (other) (70-99) mg/dl Calcium (8.6-10.3) mg/dl POC Ioniz Calcium Noni (1.12-1.32) mmol/l Magnesium (1.7-2.4) mg/dl Total Bilirubin (0.2-1.0) mg/dl AST (13-39) U/L ALT (7-52) U/L Alkaline Phosphatase (34-104) U/L Troponin I High Sens 16.7 H (0-14) pg/ml Total Protein (6.0-8.3) gm/dl Albumin (3.4-5.0) gm/dl Globulin (2.5-4.0) gm/dl Albumin/Globulin Ratio (0.9-2) Lipase (11-82) U/L Blood Type Antibody Screen Administered Medications Discontinued Medications Sodium Chloride (Nss) 1,000 mls @ 999 mls/hr IV .Q1H1M STA Stop: 03/18/25 18:48 Last Infusion: 03/18/25 20:09 Dose: Infused Documented By: Admin: 03/18/25 18:14 Dose: 999 mls/hr Documented By: MAR Imaging Data Radiologist's Impression: Head CT 03/18/25 17:55 Technique: Axial computed tomography images were obtained of the brain without intravenous contrast. Findings: There is diffuse cerebral atrophy, within expected limits for the patient's age. Areas of decreased attenuation are seen within the periventricular white matter, likely representing chronic small vessel ischemic disease. There is no definite sign of acute or old infarction. No intracranial hemorrhage is evident. No definite mass lesion is seen on this noncontrast examination. There is no midline shift or other form of herniation. No hydrocephalus is seen. There is a frontal scalp hematoma No fracture is identified. The orbits and the visualized paranasal sinuses appear unremarkable. The mastoid air cells appear clear. Impression: 1. Cerebral atrophy and chronic small vessel ischemic disease 2. No sign of intracranial hemorrhage 3. Frontal scalp hematoma Electronically signed by Shaquille Live 03-18-2025 7:03 PM Discharge Plan Visit Data Chief Complaint: Abnormal Labs/Diagnostic Testing Stated Complaint: LOW HEMOGLOBIN, KINDEY DYSFUNCTION, ABN LABS ED Provider: Sean Ortiz Discharge Problem: Acute kidney injury Patient Disposition: Home - Self-Care Condition: Fair Forms Stand Alone Forms: [facility], Important Visit Information Prescriptions Prescriptions: No Action bumetanide 1 mg tablet 1 mg PO DAILY Qty: 90 3RF Hold Instructions: Resume on 05/03/24. calcitriol 0.5 mcg capsule 1 mcg PO DAILY Qty: 180 3RF polyethylene glycol 3350 [Miralax] 17 gram/dose powder 17 g PO DAILY PRN (Reason: Constipation) atorvastatin 40 mg tablet 40 mg PO DAILY oxycodone 10 mg tablet 10 mg PO Q8H PRN (Reason: Pain) nystatin [Nyamyc] 100,000 unit/gram powder 1 applic topical DAILY PRN (Reason: Other) acetaminophen 650 mg tablet extended release 650 mg PO Q12H PRN (Reason: Pain) multivitamin [Daily Multi-Vitamin] Tablet 1 tab PO DAILY Natural Tears (PF) 0.1-0.3 % dropperette 1 drp ophthalmic (eye) DAILY PRN (Reason: Other) montelukast 10 mg tablet 10 mg PO DAILY cholecalciferol (vitamin D3) 1 cap PO DAILY hydroxyzine HCl 50 mg tablet 50 mg PO TID PRN (Reason: itching) albuterol sulfate 90 mcg/actuation HFA aerosol inhaler 2 puffs inhalation Q6H PRN (Reason: shortness of breath or wheezing) paroxetine HCl 30 mg tablet 40 mg PO DAILY mecobalamin (vitamin B12) 1,000 mcg lozenge 1,000 mcg PO DAILY Rx Instructions: allow to dissolve in mouth OR may chew lightly before swallowing mirtazapine 30 mg tablet 30 mg PO QPM levocetirizine 5 mg tablet 5 mg PO DAILY vitamin B complex Tablet 1 tab PO DAILY Eliquis 5 mg tablet 5 mg PO BID Qty: 180 3RF pantoprazole [Protonix] 40 mg tablet,delayed release (DR/EC) 40 mg PO DAILY Qty: 30 0RF Referrals Referrals: Adrian Leung [Primary Care Provider] -
[2025-03-18 18:09] LABS: Hematocrit (blood only) 25.5 % (37.0-47.0); Hemoglobin 8.2 g/dl (12.0-16.0); Immature Granulocytes # (auto) 0.06 K/uL (0.01-0.20); Immature Granulocytes % (auto) 0.5 %; Mean Corpuscular Hemoglobin 28.0 pg (25.0-34.0); Mean Corpuscular Volume 87.0 fL (80.0-100.0); Platelet Count 270 K/uL (130-400); RDW Standard Deviation 53.5 fL (36.4-46.3); Red Blood Count 2.93 M/uL (4.20-5.40); White Blood Count 11.44 K/ul (4.8-10.8)
[2025-03-18] MEDS: SODIUM CHLORIDE 0.9% 1,000 ML IV STA (18:14)
[2025-03-18 18:30] LABS: Alanine Aminotransferase 56 U/L (7-52); Albumin Globulin Ratio 1.8 (0.9-2); Alkaline Phosphatase 102 U/L (34-104); Anion Gap 13 (3-11); Bilirubin,Total 0.5 mg/dl (0.2-1.0); Blood Urea Nitrogen 70 mg/dl (6-23); Calcium 9.1 mg/dl (8.6-10.3); Carbon Dioxide 22 mmol/L (21-32); Chloride 103 mmol/L (98-107); Globulin 2.5 gm/dl (2.5-4.0); Glucose 159 mg/dl (70-99(Fasting)); Lipase 95 U/L (11-82); Potassium 3.2 mmol/L (3.5-5.1); Sodium 138 mmol/L (136-145); Total Protein 6.9 gm/dl (6.0-8.3)
[2025-03-18 19:01] LABS: INR 1.0 (0.9-1.1); Prothrombin Time 10.5 Seconds (9.0-12.0)
--- NOTE | 2025-03-18 19:03 | CT Scan Report ---
Technique: Axial computed tomography images were obtained of the brain without intravenous contrast. Findings: There is diffuse cerebral atrophy, within expected limits for the patient's age. Areas of decreased attenuation are seen within the periventricular white matter, likely representing chronic small vessel ischemic disease. There is no definite sign of acute or old infarction. No intracranial hemorrhage is evident. No definite mass lesion is seen on this noncontrast examination. There is no midline shift or other form of herniation. No hydrocephalus is seen. There is a frontal scalp hematoma No fracture is identified. The orbits and the visualized paranasal sinuses appear unremarkable. The mastoid air cells appear clear. Impression: 1. Cerebral atrophy and chronic small vessel ischemic disease 2. No sign of intracranial hemorrhage 3. Frontal scalp hematoma Electronically signed by Shaquille Live 03-18-2025 7:03 PM
--- NOTE | 2025-03-18 20:04 | History & Physical Report ---
Date of Service March 18, 2025 Assessment & Plan (1) Acute kidney injury superimposed on CKD: (2) Iron deficiency anemia: (3) Ground-level fall: (4) Hematoma of scalp: (5) Elevated troponin: Plan Patient is a 74-year-old female with past medical history of stage III CKD secondary to microvascular disease, iron deficiency anemia, HFpEF (most recent EF 60 to 65%), type II DM, HTN, KEYLA no longer on CPAP after gastric bypass, A- fib on Eliquis. Patient presented after creatinine was found to increase from 2.94-5.91. She is being admitted for an KEKE. #KEKE on Stage 3 CKD - Cr increased from 2.94 to 5.91, BUN elevated to 70, K+ 3.2, mag 2.3. Bl Cr previously 2-2.5 however increasing over past few months to closer to 3.0. UA negative for acute infection. Patient denies any NSAID use, is on diuretics. Cause suspected to be prerenal at time of admission given clinically dry however further workup still pending. Possibly component of chronic disease progression. However, FENa 8.6% = intrinsic. - post void bladder scan ordered - 0mL - no retention - abdomen pelvis CT ordered to further assess - multiple non-obstructing calculi - 1L NSS bolus in ED, continue fluid resuscitation with LR at 125 mL/hour - hold Bumex - Repeat laboratories at 2300 8/13 and with a.m. labs #Anemia - MARIANNE hx, follows with [facility] hematology clinic and has iron transfusions (most recently about a year ago). Hgb 8.2, Hct 25.5% on admission. Patient denies any acute blood loss. - Iron panel with a.m. labs Abdomen/pelvis CT ordered to further assess for any bleeding - negative. Will resume home Eliquis. Hemoccult of all stools Type and screen ordered Trend CBC, repeat 2300 8/13 and with AM labs #fall/scalp hematoma - s/p fall 2-3 weeks ago. Patient with some confusion surrounding event - stated she was seen in ED in [facility] for diagnostic imaging however unclear as to which one. Head CT revealed frontal scalp hematoma. Reports BL elias pain and headaches. - Tylenol prn and continue home oxycodone prn - PT/OT ordered - warm compress and ice prn #elevated troponin - trop 17.9 -> 16.7. patient denies any chest pain. EKG without ischemic changes, shows chronic a fib. Suspect elevated secondary to demand with KEKE above. - repeat with AM labs Monitor on telemetry #A fib - in a fib at time of admission - no need to dose adjust Eliquis - continue 5 mg BID - no rate or rhythm control #HFpEF/HTN/HLD - volume depleted on admission. Most recent echo 07/29 showed EF 60 to 65%, mild LVH, mild atrial dilation, mild MR. - Hold Bumex Daily weights - continue statin #GERD/Hx gastric bypass - continue PPI. Bypass procedure 12-15 years ago. #mental health - continue paroxetine #T2DM - no current regimen after gastric bypass. Previously on Ozempic. #KEYLA - no longer on CPAP after gastric bypass. 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 Patient presented after creatinine was found to increase from 2.94-5.91. She is being admitted for an KEKE. Patient seen at bedside. She stated she had outpatient labs which showed her increasing creatinine and was told to come into the ED. patient has felt relatively well at home. She did have a fall approximately 3 weeks ago outside of [facility]. She tripped and hit her head off the window and ground was evaluated at an ED in the [facility]. She has a significant frontal scalp hematoma and a broken nose. She denies any rib fractures or extremity injury. She has felt dizzy and lightheaded since the fall with intermittent headaches. She denies any chest pain, shortness of breath, abdominal pain, decrease in urinary output, worsening lower extremity edema (improved from baseline). She stated a couple days ago she did have some itching and difficulty urinating however has now resolved. She stated her appetite has been stable and fluid intake has been stable. She has been taking Tylenol for her headaches but no NSAIDs. She denies any acute blood loss like hematuria or hematochezia. She does follow with [facility] center/hematology for her iron deficiency anemia and has not had an infusion in approximately 1 year. She has a history of gastric bypass and is no longer on anything for diabetes or obstructive sleep apnea. She is due for her evening medications. She does take Bumex at home and occasionally takes an increased dose if she has significant edema however has not needed any increase in dose recently as her edema and weights have been stable. 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 Allergies Allergy/AdvReac Type Severity Reaction Status Date / Time amoxicillin Allergy Intermediate RASH Verified 03/18/25 20:50 clavulanic acid Allergy Intermediate RASH Verified 03/18/25 20:50 ibuprofen Allergy Mild ITCHING Verified 03/18/25 20:50 Penicillins Allergy Mild ITCHING Verified 03/18/25 20:50 Home Medications Medication Instructions Recorded Confirmed Type albuterol sulfate 90 mcg/actuation 2 puffs inhalation Q6H PRN 04/16/19 03/18/25 History aerosol inhaler shortness of breath or wheezing hydroxyzine HCl 50 mg tablet 50 mg PO TID PRN itching 04/16/19 01/01/25 History paroxetine HCl 30 mg tablet 40 mg PO DAILY 06/22/21 03/18/25 History acetaminophen 650 mg 650 mg PO Q12H PRN Pain 12/27/21 03/18/25 History tablet,extended release atorvastatin 40 mg tablet 40 mg PO DAILY 12/27/21 01/01/25 History dextran 70-hypromellose (PF) 0.1 1 drp ophthalmic (eye) DAILY PRN 12/27/21 01/01/25 History %-0.3 % eye drops in a dropperette Other (Natural Tears (PF)) montelukast 10 mg tablet 10 mg PO DAILY 12/27/21 01/01/25 History multivitamin (Daily Multi-Vitamin 1 tab PO DAILY 12/27/21 01/01/25 History tablet) nystatin 100,000 unit/gram topical 1 applic topical DAILY PRN Other 12/27/21 01/01/25 History powder (Nyamyc) oxycodone 10 mg tablet 10 mg PO Q8H PRN Pain 12/27/21 01/01/25 History polyethylene glycol 3350 17 17 g PO DAILY PRN Constipation 12/27/21 03/18/25 History gram/dose oral powder (Miralax) mecobalamin (vitamin B12) 1,000 1,000 mcg PO DAILY 09/14/22 01/01/25 History mcg lozenges mirtazapine 30 mg tablet 30 mg PO QPM 09/14/22 01/01/25 History cholecalciferol (vitamin D3) 1 cap PO DAILY 09/06/23 01/01/25 History pantoprazole 40 mg tablet,delayed 40 mg PO DAILY #30 tabs 05/01/24 03/18/25 Rx release (Protonix) apixaban 5 mg tablet (Eliquis) 5 mg PO BID #180 tabs 01/01/25 01/01/25 Rx levocetirizine 5 mg tablet 5 mg PO DAILY 01/01/25 01/01/25 History vitamin B complex 1 tab PO DAILY 01/01/25 01/01/25 History bumetanide 1 mg tablet 1 mg PO DAILY edema #90 tabs 01/23/25 Rx calcitriol 0.5 mcg capsule 1 mcg (2 x 0.5 mcg) PO DAILY #180 02/02/25 Rx caps Past Med/Surg History Problem List (Updated 03/18/25 @ 21:50 by Acacia Rizvi PA-C) Elevated troponin Hematoma of scalp Ground-level fall Iron deficiency anemia Acute kidney injury superimposed on CKD Acute kidney injury (Acute) Atrial fibrillation, permanent Asthma (Chronic) Anemia Dyslipidemia HTN (hypertension) (Chronic) Chronic diastolic heart failure MCFP (current) use of anticoagulants Medical History (Updated 03/18/25 @ 21:50 by Acacia Rizvi PA-C) Chronic heart failure with preserved ejection fraction Obstructive sleep apnea Atrial fibrillation Type 2 diabetes mellitus CKD (chronic kidney disease) stage 3, GFR 30-59 ml/min Hypothyroidism Vitamin B12 deficiency Uterine cancer Esophageal ulcer SBO (small bowel obstruction) Surgical History S/P RISHABH-BSO (total abdominal hysterectomy and bilateral salpingo-oophorectomy) S/P partial thyroidectomy S/P tonsillectomy S/p total knee replacement, bilateral S/P gastric bypass Open gastric bypass by Dr. Dietz 06/27/2010 S/P cataract surgery Family History Mother Lymphoma Social History Smoking Status: Never smoker Hx Alcohol Use: No Hx Substance Use: No Preferred Language: Danish Communication Ability: Effective Manager Programming Required: No Beliefs That Will Affect Care: None Current Living Situation: Spouse Current Living Situation Comment: lives at home Feels Safe at Home: Yes Safety Concerns: Feels Safe At This Time Assistive Devices: None Review of Systems Review of Systems: see HPI Physical Exam Physical Exam: The patient is awake, alert and oriented 3, well developed and well nourished, normocephalic and atraumatic, in no acute distress. Non-toxic appearing. HEENT- EOMI, mucous membranes dry. Hearing grossly intact. Heart-normal S1 and S2. No murmurs, rubs or gallops. Lungs-clear bilaterally, no respiratory distress, no accessory muscle use. Abdomen-normal bowel sounds and soft. No ascites noted. Non-tender. Extremities- no clubbing, cyanosis, or edema. Rheumatologic-normal range of motion. Psychiatric-normal affect. Results & Data Results & Data Vital Signs (Past 12 Hours) Vital Signs Pulse Resp BP Pulse Ox O2 Del Method 03/18/25 17:48 73 20 98 Room Air 03/18/25 17:45 71 20 148/80 H 99 Room Air Laboratory Results Reviewed CBC, PT/INR, CMP, troponin, magnesium, lipase Diagnostic Findings reviewed head CT Ordered APCT Medications Administered ED1L NSS bolus AdmissionLR at 125 mL/hour ECG Additional Comments: A-fib rate 63 QTc 454 Code Status & VTE Plan Code Status full code VTE Prophylaxis Plan VTE Prophylaxis will be ordered: Yes Supervising Physician Co-Signing Physician Notes Attending addendum: I have physically seen this patient, have supervised the RICA's activities, and agree with the H&P unless as otherwise noted. Assessment and Plan: The patient is a 74-year-old female with past medical history including CKD stage III, iron deficiency anemia, HFpEF, diabetes mellitus type 2, hypertension, KEYLA, status post gastric bypass, atrial fibrillation on Eliquis, and CKD. Patient presented to the emergency department after a fall, and was noted during workup to have a creatinine increased to 5.91, with admitting diagnoses of KEKE superimposed on CKD. Acute kidney injury superimposed on CKD stage III/hypokalemia- Creatinine on mission 5.91, with base 2.94 Creatinine kinase ordered and pending Hold bumetanide since likely contributing to KEKE and hypokalemia CT scan of abdomen and pelvis without contrast ordered to assess for possible pathology, primarily shows multiple nonobstructing calculi Postvoid residual measured, with result 0 mL, indicating no retention Status post 1 L normal saline bolus in the ED Continue fluid resuscitation with LR at 125 mL/h Recheck laboratories later this evening, and then every morning Consult nephrology, follows with Dr. Bernardino Knight Anemia- Follows with [facility] hematology clinic, has received iron infusions, with most recently about 1 year ago Initial hemoglobin 8.2, and repeat 4 hours later is 7.[address] scan of abdomen pelvis does not note retroperitoneal or other bleeding Type and screen ordered May be secondary to progressive kidney dysfunction Atrial fibrillation/HFpEF/hypertension/elevated troponin- The patient will be admitted to telemetry for serial cardiac enzymes, serial EKG's, cardiac rhythm monitoring Initial troponin 17.9 with follow-up 16.7 Continue Eliquis 5 mg p.o. twice daily Holding Bumex due to KEKE Hyperlipidemia- Continue atorvastatin Mood disorder- Continue paroxetine, mirtazapine and hydroxyzine GERD/history of gastric bypass- Continue pantoprazole History of diabetes mellitus- Previously on Ozempic Glucose 159 on admission If elevated in the morning, can place on Accu-Cheks at that time PG Care Time/CCT Total # of Minutes Spent Total Time Spent with Patient: Total time spent is greater than 50% in coordination of care (as documented) at patient's floor/unit and/or counseling patient: Coding Level of Care Code 79999 INT INP/OBS CARE 3/75MIN Diagnoses Acute kidney injury superimposed on CKD N17.9; N18.9 Iron deficiency anemia D50.9 Ground-level fall W18.30XA Hematoma of scalp S00.03XA Elevated troponin R79.89
[2025-03-18 20:32] LABS: Magnesium 2.3 mg/dl (1.7-2.4)
[2025-03-18] MEDS: LACTATED RINGER'S 1,000 ML IV SCH (21:27)
[2025-03-18] MEDS ORDERED: ALBUTEROL HFA 8 GM INHALER INH PRN (22:13)
[2025-03-18] MEDS ORDERED: DOCUSATE SODIUM 100 MG CAP PO PRN (22:13)
[2025-03-18] MEDS ORDERED: ONDANSETRON INJ 2 MG/ML 2 ML VIAL IV PRN (22:13)
[2025-03-18 22:15] LABS: Appearance Urine Clear (Clear); Glucose Urine UA Negative (Negative)
[2025-03-18] MEDS: MELATONIN 3 MG TAB PO PRN (22:40)
[2025-03-18 22:56] LABS: Hematocrit (blood only) 22.5 % (37.0-47.0); Hemoglobin 7.3 g/dl (12.0-16.0); Immature Granulocytes # (auto) 0.04 K/uL (0.01-0.20); Immature Granulocytes % (auto) 0.5 %; Mean Corpuscular Hemoglobin 27.9 pg (25.0-34.0); Mean Corpuscular Volume 85.9 fL (80.0-100.0); Platelet Count 221 K/uL (130-400); RDW Standard Deviation 52.5 fL (36.4-46.3); Red Blood Count 2.62 M/uL (4.20-5.40); White Blood Count 8.29 K/ul (4.8-10.8)
[2025-03-18 23:14] LABS: Anion Gap 12.0 (3-11); Blood Urea Nitrogen 71.0 mg/dl (6-23); Calcium 8.6 mg/dl (8.6-10.3); Carbon Dioxide 21.0 mmol/L (21-32); Chloride 107.0 mmol/L (98-107); Creatinine Clr Calc Pharmacy 8.0 ml/min; Glucose 106.0 mg/dl (70-99(Fasting)); Magnesium 2.2 mg/dl (1.7-2.4); Potassium 3.2 mmol/L (3.5-5.1); Sodium 140.0 mmol/L (136-145)
[2025-03-18 23:25] LABS: Microcytosis Present
[2025-03-18] MEDS: ATORVASTATIN 40 MG TAB PO SCH (23:25)
[2025-03-18] MEDS: MIRTAZAPINE TAB 15 MG TAB PO SCH (23:25)
[2025-03-18] MEDS: APIXABAN 5 MG TABLET PO SCH (23:25)
--- NOTE | 2025-03-18 23:37 | CT Scan Report ---
Exam(s): CT ABDOMEN + PELVIS Without Contrast EXAM: CT Abdomen and Pelvis Without Intravenous Contrast CLINICAL HISTORY: Reason for exam: anemia, acute renal insufficiency- bleeding?. TECHNIQUE: Axial computed tomography images of the abdomen and pelvis without intravenous contrast. CTDI is joint 21.94 mGy and DLP is 929.67 mGy-cm. Automated exposure control was utilized for the study. A dose lowering technique was utilized adhering to the principles of ALARA. COMPARISON: 04/30/2024 FINDINGS: Lung bases: Unremarkable. No mass. No consolidation. ABDOMEN: Liver: Unremarkable. Gallbladder and bile ducts: The gallbladder is distended but nondilated. No gallstones or surrounding inflammation identified. Common bile duct is borderline dilated measuring 8 mm. There is a 6 mm calculus within the distal common bile duct. Pancreas: Unremarkable. No ductal dilation. Spleen: Unremarkable. No splenomegaly. Adrenals: Unremarkable. No mass. Kidneys and ureters: There are 3 nonobstructive caliceal calculi in the lower pole of the right kidney measuring up to 6 mm. The kidneys are otherwise unremarkable. No hydronephrosis or ureterolithiasis is seen. Stomach and bowel: See below. PELVIS: Appendix: No signs of acute appendicitis. Bowel loops are nondilated. No pneumoperitoneum, free fluid, or acute inflammatory changes are seen involving the bowel. There are staple lines along the stomach and small bowel consistent with previous gastric bypass surgery. Bladder: Unremarkable. No stones. Reproductive: Unremarkable as visualized. ABDOMEN and PELVIS: Intraperitoneal space: The uterus is absent. No free fluid in the pelvis. Bones/joints: No acute fracture. No dislocation. Soft tissues: Unremarkable. Vasculature: The abdominal aorta is mildly calcified but nondilated. There is no aneurysm. This is a noncontrast study. Lymph nodes: Unremarkable. No enlarged lymph nodes. IMPRESSION: 1. Common bile duct is borderline dilated measuring 8 mm. There is a 6 mm calculus within the distal common bile duct. 2. No signs of acute appendicitis. Bowel loops are nondilated. No pneumoperitoneum, free fluid, or acute inflammatory changes are seen involving the bowel. There are staple lines along the stomach and small bowel consistent with previous gastric bypass surgery. 3. There are 3 nonobstructive caliceal calculi in the lower pole of the right kidney measuring up to 6 mm. The kidneys are otherwise unremarkable. No hydronephrosis or ureterolithiasis is seen. 4. No hematoma or free fluid is seen. Electronically signed by: Yadiel Cheeny MD 03/18/25 23:37 PM
[2025-03-18] MEDS ORDERED: APIXABAN 5 MG TABLET PO SCH (23:45)
[2025-03-19 04:25] LABS: Creatine Kinase 90 U/L (26-192)
[2025-03-19 07:09] LABS: Hematocrit (blood only) 21.6 % (37.0-47.0); Hemoglobin 7.2 g/dl (12.0-16.0); Immature Granulocytes # (auto) 0.03 K/uL (0.01-0.20); Immature Granulocytes % (auto) 0.4 %; Mean Corpuscular Hemoglobin 28.7 pg (25.0-34.0); Mean Corpuscular Volume 86.1 fL (80.0-100.0); Platelet Count 213 K/uL (130-400); RDW Standard Deviation 52.6 fL (36.4-46.3); Red Blood Count 2.51 M/uL (4.20-5.40); White Blood Count 7.90 K/ul (4.8-10.8)
[2025-03-19 07:34] LABS: RBC Morphology Unremarkable
[2025-03-19 07:48] LABS: Anion Gap 11.0 (3-11); Blood Urea Nitrogen 66.0 mg/dl (6-23); Calcium 8.4 mg/dl (8.6-10.3); Carbon Dioxide 20.0 mmol/L (21-32); Chloride 110.0 mmol/L (98-107); Creatinine Clr Calc Pharmacy 8.7 ml/min; Glucose 90.0 mg/dl (70-99(Fasting)); Iron 68.0 mcg/dl (35-150); Magnesium 2.1 mg/dl (1.7-2.4); Potassium 3.3 mmol/L (3.5-5.1); Sodium 141.0 mmol/L (136-145); Total Iron Binding Cap Calc 242.0 mcg/dl (250-450); Transferrin 173.0 mg/dl (200-360); Transferrin (FE) Percent Satur 28.0 % (15-50)
[2025-03-19 07:55] LABS: Ferritin 187.4 ng/ml (8-388)
[2025-03-19] MEDS: MONTELUKAST SODIUM 10 MG TABLET PO SCH (08:30)
[2025-03-19] MEDS: CETIRIZINE HCL 10 MG TABLET PO SCH (08:30)
--- NOTE | 2025-03-19 09:37 | Nephrology Consultation ---
Date of Consultation March 19, 2025 Assessment & Plan (1) Acute kidney injury: Non-oliguric. BP and volume status are acceptable. Electrolytes normal. There is no emergent indication for dialysis. Potential future indications have been discussed. UA tammy. CT demonstrating kidneys to be unobstructed. Creatinine downtrending slightly. IVF are being provided. Diuretics held. Document strict I/Os. Maintain slightly positive fluid balance. Repeat serum metabolic profile in the AM. Continue calcitriol per home Rx. (2) CKD (chronic kidney disease) stage 3, GFR 30-59 ml/min: Baseline creatinine variable (~2.0-2.5 mg/dL). CKD IIIb A1. 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 Medications are appropriately dosed for kidney function. Updated SIEP and K/L LC requested. No monoclonal identified in the past. Renal diet. (3) Anemia: Follows with Dr. Nazario at [facility]. History of B12 and iron deficiency. THIEN therapy has not been required. Iron stores are acceptable. Epogen 35475 units SQ provided this AM. (4) HTN (hypertension): BP acceptable. Antihypertensives have been weaned off. Unable to tolerate MAR/ARB by history.. (5) Atrial fibrillation: Eliquis dose reduced to 2.5 mg BID due to kidney dysfunction and acute on chronic anemia. History of Present Illness Reason for Consultation: KEKE on CKD Requesting Physician: Jonathan Gallardo MD Attending Physician: Jonathan Gallardo MD History of Present Illness Deborah is a 74-year-old female with chronic kidney disease who I know well from the outpatient clinic. Deborah initially presented to the nephrology clinic for evaluation of chronic kidney disease in April 2018. Medical history is notable for a history of gastric bypass surgery in 2009 with significant weight loss. Deborah developed some nutritional deficiencies including B vitamin deficiency and chronic iron deficiency from the surgery. In September 2017, she was admitted to [facility] with a SBO. The patient was subsequently identified as having esophageal and gastric ulcers treated with omeprazole and Carafate. She has chronic anemia which is felt to be multifactorial. The patient follows with Dr. Nazario in the hematology clinic regarding this. Dr. Nazario has treated iron deficiency and provided B vitamin replacement. Based on his recent evaluation, he suspected possible underlying connective tissue or rheumatologic etiology and has scheduled a rheumatology consultation. She unfortunately suffered a fall (denies syncope or presyncope) resulting in facial trauma and large hematoma on her forehead. Deborah has been able to manage lower extremity edema with Bumex previously but due to prerenal physiology, diuretics were reduced. Evaluation revealed some chronic venous insufficiency for which she saw Dr. Butcher. Cardiology follow up is routinely provided by Dr. Lan for permanent atrial fibrillation. Deborah also has diastolic dysfunction. She has a history of hypertension but blood pressure has been low recently and antihypertensives adjusted accordingly. She has documented dyslipidemia and diabetes mellitus. Diabetes improved with weight loss. Metformin was recently stopped. She has a history of a functional thyroid nodule with chronic hypothyroidism following partial thyroidectomy. Deborah used CPAP QHS for KEYLA in the past but more recently stopped treatment. She has fibromyalgia and chronic fatigue. MSK pain symptoms are managed with chronic use of oxycodone and paroxetine. She is being treated with Prolia for osteoporosis. She lost a significant amount of weight with GLP1a therapy (Trulicity-->Ozempic) which she was very pleased with. Unfortunately, she was admitted to the hospital with significant nausea and vomiting. Ozempic has been held. She was diagnosed with gastritis and started on pantoprazole. Symptoms improved. Serum creatinine has been trending upward over the past several months (2.9-->5.9 mg/dL). She was referred to the ER yesterday for evaluation of laboratory changes. She was admitted with a creatinine of 6.0 mg/dL. Evaluation demonstrated volume depletion for which diuretics were held and IVF provided. Serum creatinine 5.5 mg/dL this AM. Hemoglobin is notably low at 7.2. Deborah did recently suffer a fall with scalp laceration and hematoma formation. Deborah's has had several recent health issues. He is on dialysis in [place]. Allergies Allergy/AdvReac Type Severity Reaction Status Date / Time amoxicillin Allergy Intermediate RASH Verified 03/18/25 20:50 clavulanic acid Allergy Intermediate RASH Verified 03/18/25 20:50 ibuprofen Allergy Mild ITCHING Verified 03/18/25 20:50 Penicillins Allergy Mild ITCHING Verified 03/18/25 20:50 Home Medications Medication Instructions Recorded Confirmed Type albuterol sulfate 90 mcg/actuation 2 puffs inhalation Q6H PRN 04/16/19 03/18/25 History aerosol inhaler shortness of breath or wheezing hydroxyzine HCl 50 mg tablet 50 mg PO TID PRN itching 04/16/19 01/01/25 History paroxetine HCl 30 mg tablet 40 mg PO DAILY 06/22/21 03/18/25 History acetaminophen 650 mg 650 mg PO Q12H PRN Pain 12/27/21 03/18/25 History tablet,extended release atorvastatin 40 mg tablet 40 mg PO DAILY 12/27/21 01/01/25 History dextran 70-hypromellose (PF) 0.1 1 drp ophthalmic (eye) DAILY PRN 12/27/21 01/01/25 History %-0.3 % eye drops in a dropperette Other (Natural Tears (PF)) montelukast 10 mg tablet 10 mg PO DAILY 12/27/21 01/01/25 History multivitamin (Daily Multi-Vitamin 1 tab PO DAILY 12/27/21 01/01/25 History tablet) nystatin 100,000 unit/gram topical 1 applic topical DAILY PRN Other 12/27/21 01/01/25 History powder (Nyamyc) oxycodone 10 mg tablet 10 mg PO Q8H PRN Pain 12/27/21 01/01/25 History polyethylene glycol 3350 17 17 g PO DAILY PRN Constipation 12/27/21 03/18/25 History gram/dose oral powder (Miralax) mecobalamin (vitamin B12) 1,000 1,000 mcg PO DAILY 09/14/22 01/01/25 History mcg lozenges mirtazapine 30 mg tablet 30 mg PO QPM 09/14/22 01/01/25 History cholecalciferol (vitamin D3) 1 cap PO DAILY 09/06/23 01/01/25 History pantoprazole 40 mg tablet,delayed 40 mg PO DAILY #30 tabs 05/01/24 03/18/25 Rx release (Protonix) apixaban 5 mg tablet (Eliquis) 5 mg PO BID #180 tabs 01/01/25 01/01/25 Rx levocetirizine 5 mg tablet 5 mg PO DAILY 01/01/25 01/01/25 History vitamin B complex 1 tab PO DAILY 01/01/25 01/01/25 History bumetanide 1 mg tablet 1 mg PO DAILY edema #90 tabs 01/23/25 Rx calcitriol 0.5 mcg capsule 1 mcg (2 x 0.5 mcg) PO DAILY #180 02/02/25 Rx caps Patient History Medical History (Updated 03/18/25 @ 21:50 by Acacia Rizvi PA-C) Chronic heart failure with preserved ejection fraction Obstructive sleep apnea Atrial fibrillation Type 2 diabetes mellitus CKD (chronic kidney disease) stage 3, GFR 30-59 ml/min Hypothyroidism Vitamin B12 deficiency Uterine cancer Esophageal ulcer SBO (small bowel obstruction) Surgical History S/P RISHABH-BSO (total abdominal hysterectomy and bilateral salpingo-oophorectomy) S/P partial thyroidectomy S/P tonsillectomy S/p total knee replacement, bilateral S/P gastric bypass Open gastric bypass by Dr. Dietz 06/27/2010 S/P cataract surgery Family History Mother Lymphoma Social History Smoking Status: Never smoker Hx Alcohol Use: No Hx Substance Use: No Preferred Language: Divehi Communication Ability: Effective Gambling Floor Supervisor Required: No Beliefs That Will Affect Care: None Current Living Situation: Spouse Current Living Situation Comment: lives at home Feels Safe at Home: Yes Safety Concerns: Feels Safe At This Time Assistive Devices: Glasses Review of Systems Review of Systems: All systems reviewed & are unremarkable except as noted in HPI & below Physical Exam Constitutional: well developed; no acute distress Eyes: + eyelid abnormality and + anicteric scl erae facial bruising periorbitally below eyes Neck: normal visual inspection and trachea midline Respiratory: normal respiratory effort Auscultation: lungs clear to aus cultation bilaterally Cardiovascular: Rate/Rhythm: + irregularly irregular Heart Sounds: normal S1 and normal S2 Extremities: + edema Musculoskeletal: Extremities: no cyanosis and no clubbing Skin: normal turgor and + ecchymosis (facial with large scalp hematoma); no jaundice Neurologic: Motor/Sensory: no tremor and no asterixis Psychiatric: Orientation: alert and oriented x 3 Results & Data Vital Signs (Past 12 Hours) Vital Signs Temp Pulse Pulse Resp BP Pulse Ox Pulse Ox 03/19/25 07:59 36.8 C 70 18 135/59 L 96 03/19/25 07:00 67 03/19/25 03:01 36.7 C 69 18 134/69 96 03/18/25 22:16 64 03/18/25 22:15 36.5 C 63 12 143/78 H 99 03/18/25 22:13 99 03/18/25 21:44 O2 Del Method O2 Del Method 03/19/25 07:59 Room Air 03/19/25 07:00 03/19/25 03:01 Room Air 03/18/25 22:16 03/18/25 22:15 Room Air 03/18/25 22:13 Room Air 03/18/25 21:44 Room Air Laboratory Results Laboratory Results - last 24 hr 03/18/25 03/18/25 03/18/25 17:54 17:55 18:00 WBC 11.44 H RBC 2.93 L Hgb 8.2 L POC Hgb 8.8 L Hct 25.5 L POC Hct 26 L MCV 87.0 MCH 28.0 MCHC 32.2 RDW Std Deviation 53.5 H RDW Coeff of Jamar 17.0 H Plt Count 270 MPV 9.7 Immature Gran % (Auto) 0.5 Neut % (Auto) 66.5 Lymph % (Auto) 22.7 Carroll % (Auto) 6.0 Eos % (Auto) 3.4 Baso % (Auto) 0.9 Neut # (Auto) 7.60 H Lymph # (Auto) 2.60 Carroll # (Auto) 0.69 H Eos # (Auto) 0.39 Baso # (Auto) 0.10 Immature Gran # (Auto) 0.06 RBC Morphology Microcytosis PT 10.5 INR 1.0 POC Sodium 137 Sodium 138 POC Potassium 3.1 L Potassium 3.2 L POC Chloride 103 Chloride 103 Carbon Dioxide 22 POC Total CO2 21 L Anion Gap 13 H POC Anion Gap 17.0 POC BUN 71 H BUN 70 H Creatinine 5.91 H* POC Creatinine 6.2 H* Est Cr Clr Drug Dosing Not Reportable eGFR 7.06 BUN/Creatinine Ratio 11.8 Glucose 159 H POC Glucose (other) 149 H Calcium 9.1 POC Ioniz Calcium Noni 1.21 Phosphorus Magnesium 2.3 Iron TIBC Transferrin Transferrin % Sat Ferritin Total Bilirubin 0.5 AST 51 H ALT 56 H Alkaline Phosphatase 102 Total Creatine Kinase 90 Troponin I High Sens 17.9 H Total Protein 6.9 Albumin 4.4 Globulin 2.5 Albumin/Globulin Ratio 1.8 Lipase 95 H Urine Color Urine Appearance Urine pH Ur Specific Sesser Urine Protein Urine Glucose (UA) Urine Ketones Urine Blood Urine Nitrite Urine Bilirubin Urine Urobilinogen Ur Leukocyte Esterase Ur Random Creatinine Ur Random Sodium Urine Comment Blood Type O Positive Antibody Screen NEGATIVE 03/18/25 03/18/25 03/18/25 20:42 21:10 22:34 WBC 8.29 RBC 2.62 L Hgb 7.3 L POC Hgb Hct 22.5 L POC Hct MCV 85.9 MCH 27.9 MCHC 32.4 RDW Std Deviation 52.5 H RDW Coeff of Jamar 16.7 H Plt Count 221 MPV 10.2 Immature Gran % (Auto) 0.5 Neut % (Auto) 69.3 Lymph % (Auto) 21.2 Carroll % (Auto) 5.3 Eos % (Auto) 3.0 Baso % (Auto) 0.7 Neut # (Auto) 5.74 Lymph # (Auto) 1.76 Carroll # (Auto) 0.44 Eos # (Auto) 0.25 Baso # (Auto) 0.06 Immature Gran # (Auto) 0.04 RBC Morphology Microcytosis Present PT INR POC Sodium Sodium 140 POC Potassium Potassium 3.2 L POC Chloride Chloride 107 Carbon Dioxide 21 POC Total CO2 Anion Gap 12 H POC Anion Gap POC BUN BUN 71 H Creatinine 6.03 H* POC Creatinine Est Cr Clr Drug Dosing 8.0 eGFR 6.89 BUN/Creatinine Ratio 11.8 Glucose 106 H POC Glucose (other) Calcium 8.6 POC Ioniz Calcium Noni Phosphorus 8.6 H Magnesium 2.2 Iron TIBC Transferrin Transferrin % Sat Ferritin Total Bilirubin AST ALT Alkaline Phosphatase Total Creatine Kinase Troponin I High Sens 16.7 H Total Protein Albumin 3.5 Globulin Albumin/Globulin Ratio Lipase Urine Color Yellow Urine Appearance Clear Urine pH 5.5 Ur Specific Sesser 1.006 Urine Protein Negative Urine Glucose (UA) Negative Urine Ketones Negative Urine Blood Negative Urine Nitrite Negative Urine Bilirubin Negative Urine Urobilinogen Negative Ur Leukocyte Esterase Negative Ur Random Creatinine 21.3 Ur Random Sodium 43 Urine Comment Blood Type Antibody Screen 03/19/25 06:12 WBC 7.90 RBC 2.51 L Hgb 7.2 L POC Hgb Hct 21.6 L POC Hct MCV 86.1 MCH 28.7 MCHC 33.3 RDW Std Deviation 52.6 H RDW Coeff of Jamar 16.9 H Plt Count 213 MPV 10.2 Immature Gran % (Auto) 0.4 Neut % (Auto) 67.1 Lymph % (Auto) 21.8 Carroll % (Auto) 6.7 Eos % (Auto) 3.2 Baso % (Auto) 0.8 Neut # (Auto) 5.31 Lymph # (Auto) 1.72 Carroll # (Auto) 0.53 Eos # (Auto) 0.25 Baso # (Auto) 0.06 Immature Gran # (Auto) 0.03 RBC Morphology Unremarkable Microcytosis PT INR POC Sodium Sodium 141 POC Potassium Potassium 3.3 L POC Chloride Chloride 110 H Carbon Dioxide 20 L POC Total CO2 Anion Gap 11 POC Anion Gap POC BUN BUN 66 H Creatinine 5.54 H* D POC Creatinine Est Cr Clr Drug Dosing 8.7 eGFR 7.62 BUN/Creatinine Ratio 11.9 Glucose 90 POC Glucose (other) Calcium 8.4 L POC Ioniz Calcium Noni Phosphorus 8.2 H Magnesium 2.1 Iron 68 TIBC 242 L Transferrin 173 L Transferrin % Sat 28 Ferritin 187.4 Total Bilirubin AST ALT Alkaline Phosphatase Total Creatine Kinase Troponin I High Sens 17.9 H Total Protein Albumin 3.4 Globulin Albumin/Globulin Ratio Lipase Urine Color Urine Appearance Urine pH Ur Specific Sesser Urine Protein Urine Glucose (UA) Urine Ketones Urine Blood Urine Nitrite Urine Bilirubin Urine Urobilinogen Ur Leukocyte Esterase Ur Random Creatinine Ur Random Sodium Urine Comment Blood Type Antibody Screen Diagnostic Findings CT Abdomen and Pelvis Without Intravenous Contrast COMPARISON: 04/30/2024 FINDINGS: Lung bases: Unremarkable. No mass. No consolidation. ABDOMEN: Liver: Unremarkable. Gallbladder and bile ducts: The gallbladder is distended but nondilated. No gallstones or surrounding inflammation identified. Common bile duct is borderline dilated measuring 8 mm. There is a 6 mm calculus within the distal common bile duct. Pancreas: Unremarkable. No ductal dilation. Spleen: Unremarkable. No splenomegaly. Adrenals: Unremarkable. No mass. Kidneys and ureters: There are 3 nonobstructive caliceal calculi in the lower pole of the right kidney measuring up to 6 mm. The kidneys are otherwise unremarkable. No hydronephrosis or ureterolithiasis is seen. Stomach and bowel: See below. PELVIS: Appendix: No signs of acute appendicitis. Bowel loops are nondilated. No pneumoperitoneum, free fluid, or acute inflammatory changes are seen involving the bowel. There are staple lines along the stomach and small bowel consistent with previous gastric bypass surgery. Bladder: Unremarkable. No stones. Reproductive: Unremarkable as visualized. ABDOMEN and PELVIS: Intraperitoneal space: The uterus is absent. No free fluid in the pelvis. Bones/joints: No acute fracture. No dislocation. Soft tissues: Unremarkable. Vasculature: The abdominal aorta is mildly calcified but nondilated. There is no aneurysm. This is a noncontrast study. Lymph nodes: Unremarkable. No enlarged lymph nodes. IMPRESSION: 1. Common bile duct is borderline dilated measuring 8 mm. There is a 6 mm calculus within the distal common bile duct. 2. No signs of acute appendicitis. Bowel loops are nondilated. No pneumoperitoneum, free fluid, or acute inflammatory changes are seen involving the bowel. There are staple lines along the stomach and small bowel consistent with previous gastric bypass surgery. 3. There are 3 nonobstructive caliceal calculi in the lower pole of the right kidney measuring up to 6 mm. The kidneys are otherwise unremarkable. No hydronephrosis or ureterolithiasis is seen. 4. No hematoma or free fluid is seen. PG Care Time/CCT Total # of Minutes Spent Total Time Spent with Patient: Total time spent is greater than 50% in coordination of care (as documented) at patient's floor/unit and/or counseling patient: Coding Level of Care Code 65936 IN/OBS CONSULT LVL 5,80M Diagnoses Acute kidney injury N17.9 CKD (chronic kidney disease) stage 3, GFR 30-59 ml/min N18.3 Anemia D64.9 HTN (hypertension) I10 Atrial fibrillation I48.91
[2025-03-19] MEDS: POTASSIUM CHLORIDE 10 MEQ TABCR PO STA (10:31)
--- NOTE | 2025-03-19 10:49 | Electrocardiogram Report ---
Test Reason : Blood Pressure : */* mmHG Vent. Rate : 63 BPM Atrial Rate : * BPM P-R Int : * ms QRS Dur : 100 ms QT Int : 444 ms P-R-T Axes : * -5 -10 degrees QTcB Int : 454 ms Atrial fibrillation Inferior infarct , age undetermined Abnormal ECG When compared with ECG of 30-Apr-2024 16:13, Inferior infarct is now Present Confirmed by Michael Hughes [id number] on 03/19/2025 10:48:58 AM Referred By: REFERRED SELF Confirmed By: Michael Hughes
[2025-03-19] MEDS: EPOETIN ALFA 10,000 UNITS/ML VIAL SQ ONE (11:39)
[2025-03-19] MEDS: ACETAMINOPHEN 325 MG TAB PO PRN (14:05)
--- NOTE | 2025-03-19 18:01 | Hospitalist Progress Note ---
Date of Service March 19, 2025 Assessment & Plan (1) Acute kidney injury superimposed on CKD: (2) Iron deficiency anemia: (3) Ground-level fall: (4) Hematoma of scalp: (5) Elevated troponin: (6) Choledocholithiasis: (7) Atrial fibrillation, permanent: (8) HTN (hypertension): (9) S/P gastric bypass: (10) Hypothyroidism: Plan 74yo female with history of stage III CKD, iron deficiency anemia, HFpEF (most recent EF 60 to 65%), type II DM, HTN, KEYLA no longer on CPAP after gastric bypass, permanent A-fib on Eliquis. Had a fall with head injury in February. Presented after outpatient labs showed her creatinine increased from 2.94-5.91. #KEKE on Stage 3 CKD - -baseline Cr about 2.5 to 3 over the last 6 months -presenting Cr 5.91 -FENa 8.6% -no obstruction seen on CT abd/pelvis; multiple kidney stones seen but none are obstructing -u/a bland - no blood, protein, or casts -CPK wnl despite recent fall in late February -patient reports weight loss, poor appetite, etc over the last several weeks (possibly due to choledocholiathiasis??) -suspect poor oral intake was the culprit for the KEKE; can't rule out rhabdomyolysis as the fall was several weeks ago and she could have theoretically cleared the myoglobin following the fall but unlikely scenario -hold diuretics -cont IVF with lactated ringers -appreciate consult by Dr Knight from [facility] Nephrology -fortunately she is nonoliguric, K level is acceptable, and she has minimal acidosis - no indication for HD -volume status is acceptable at this time as well -creatinine thus far has not improved appreciably but hopefully will start to decrease with supportive care & time -repeat BMP am #choledocholithiasis - -admission CT a/p shows a dilated CBD at 8mm and a possible distal CBD stone of 6mm in diameter -her LFTs are normal -over the last several weeks she has had symptoms possibly due to choledocholithiasis -- poor appetite, nausea and abdominal discomfort post- prandially, weight loss, chills -could this be the cause of her overall illness - poor PO intake from the CBD stone, leading to intravascular volume depletion and development of KEKE?? -rechecked LFTs this evening - wnl (does have chronically elevated AST/ALT, however) -will obtain 2 sets of blood cultures - at high risk of sepsis/bacteremia with the possible CBD stone -HOLD Eliquis in the event she needed ERCP -MRCP ordered on urgent basis -if there is a CBD stone confirmed on MRCP start broad-spectrum IV antibiotics to cover for cholangitis/cover the biliary tree -downgrade diet to clears while awaiting MRCP/results of work-up #hypokalemia - -replace, serial BMP -mag level noted to be wnl #Anemia - -chronic, dating back to pre-2019 -iron deficiency by history - follows with [facility] hematology clinic in [place] & had had IV iron infusions -iron studies this admission with acceptable iron stores/levels -hemoglobin has dropped about 1 gm from admission; typical amount in the setting of frequent blood draws in the first 24 hours of admission along with IV fluids/dilutional affect -no obvious GI blood loss -appreciate [facility] Nephrology consult; Epogen to be provided -much of her chronic anemia is likely due to her CKD -for completeness check B12/folate/TSH in am #fall/head injury/forehead hematoma - -s/p fall 2-3 weeks ago at her home -fortunately no ICH on head CT; just forehead hematoma -can use warm packs to speed resolution -could easily have had concussion from her head injury #elevated troponin - -peak HS trop 17.9 -EKG without ischemic changes -likely myocardial demand ischemia in setting of severe KEKE #permanent a.fib - -rates controlled -HOLD Eliquis in the event MRCP confirms CBD stone and ERCP is needed -she is not on AV john agents at baseline #HFpEF - -volume depleted on admission -most recent echo 07/2024 - EF 60-65%, mild LVH, mild atrial dilatation, mild MR -hold bumex due to KEKE -thus far appears compensated, although may have JVD with b/l basilar rales on exam; caution with IVF #HTN - -BPs mildly high upon admission but remaining BPs since are acceptable without anti-hypertensives #GERD/Hx gastric bypass - -continue PPI -gastric bypass procedure 12-15 years ago at [facility] #mental health - -continue paroxetine #T2DM - -not on medicine or insulin at this time -check Hba1c in am but uncertain reliability of such due to chronic anemia #h/o KEYLA - -no longer on CPAP following significant weight loss s/p gastric bypass #h/o abnormal TSH - -check TFTs in am care d/w Dr Knight from nephrology via [place] correspondence Admission and Anticipated Discharge Date Admission Date: March 18, 2025 Subjective tele stable overnight with rate controlled a.fib she asks multiple questions about the large bruise she has on her forehead (suffered a fall with head injury in February) she states "it's actually smaller than it was" [a few weeks ago] she c/o upper abdominal discomfort for several weeks - often coming on after eating - sometimes right away, and sometimes 20-30 minutes later no lower abdominal discomfort she has had very poor appetite for 2-3 weeks or longer, and has lost weight during this time period she has had nausea at times - also post-prandial, but no vomiting no fevers, but has had some chills here/there over the last 2-3 weeks surprisingly she ate dinner tonight at the hospital (portion of beef) and it did not cause any pain Review of Systems Review of Systems: CV - no chest pain pulm - denies dyspnea at rest or with exertion GI - no vomiting, no diarrhea Physical Exam Physical Exam: gen - lying comfortably in bed, NAD head - signs of trauma with large hematoma center of forehead and multiple bruises on her face (below both eyes, cheeks, etc) mouth - MMM neck - suspected JVD vs prominent jugular vein pulsations heart - irregularly irregular, s1 s2, no murmur lungs - mild b/l basilar rales, no wheeze abd - soft, mildly tender RUQ/high epigastric region, BS+, no peritoneal signs, no HSM ext - no edema, pulses b/l feet 2+ psych - a/o x 3 Results & Data Results & Data Vital Signs (Past 12 Hours) Vital Signs Temp Pulse Pulse Resp BP Pulse Ox O2 Del Method 03/19/25 15:15 36.9 C 70 18 133/70 96 Room Air 03/19/25 11:00 36.8 C 60 16 149/69 H 97 Room Air 03/19/25 07:59 36.8 C 70 18 135/59 L 96 Room Air 03/19/25 07:00 67 Laboratory Results Laboratory Results - last 24 hr 03/18/25 03/19/25 03/19/25 17:54 06:12 19:02 WBC 7.90 RBC 2.51 L Hgb 7.2 L Hct 21.6 L MCV 86.1 MCH 28.7 MCHC 33.3 RDW Std Deviation 52.6 H RDW Coeff of Jamar 16.9 H Plt Count 213 MPV 10.2 Immature Gran % (Auto) 0.4 Neut % (Auto) 67.1 Lymph % (Auto) 21.8 [place] % (Auto) 6.7 Eos % (Auto) 3.2 Baso % (Auto) 0.8 Neut # (Auto) 5.31 Lymph # (Auto) 1.72 [place] # (Auto) 0.53 Eos # (Auto) 0.25 Baso # (Auto) 0.06 Immature Gran # (Auto) 0.03 RBC Morphology Unremarkable Sodium 141 137 Potassium 3.3 L 4.0 D Chloride 110 H 107 Carbon Dioxide 20 L 19 L Anion Gap 11 11 BUN 66 H 68 H Creatinine 5.54 H* D 5.94 H* D Est Cr Clr Drug Dosing 8.7 8.1 eGFR 7.62 7.01 BUN/Creatinine Ratio 11.9 11.4 Glucose 90 189 H Calcium 8.4 L 8.9 Phosphorus 8.2 H Magnesium 2.1 Iron 68 TIBC 242 L Transferrin 173 L Transferrin % Sat 28 Ferritin 187.4 Total Bilirubin 0.5 Direct Bilirubin 0.1 AST 30 ALT 39 Alkaline Phosphatase 93 Total Creatine Kinase 90 Troponin I High Sens 17.9 H Total Protein 5.9 L Albumin 3.4 3.[address] 03/18/25 17:55 Technique: Axial computed tomography images were obtained of the brain without intravenous contrast. Findings: There is diffuse cerebral atrophy, within expected limits for the patient's age. Areas of decreased attenuation are seen within the periventricular white matter, likely representing chronic small vessel ischemic disease. There is no definite sign of acute or old infarction. No intracranial hemorrhage is evident. No definite mass lesion is seen on this noncontrast examination. There is no midline shift or other form of herniation. No hydrocephalus is seen. There is a frontal scalp hematoma No fracture is identified. The orbits and the visualized paranasal sinuses appear unremarkable. The mastoid air cells appear clear. Impression: 1. Cerebral atrophy and chronic small vessel ischemic disease 2. No sign of intracranial hemorrhage 3. Frontal scalp hematoma Electronically signed by Shaquille Live 03-18-2025 7:03 PM Abdomen/Pelvis CT 03/18/25 20:35 Exam(s): CT ABDOMEN + PELVIS Without Contrast EXAM: CT Abdomen and Pelvis Without Intravenous Contrast CLINICAL HISTORY: Reason for exam: anemia, acute renal insufficiency- bleeding?. TECHNIQUE: Axial computed tomography images of the abdomen and pelvis without intravenous contrast. CTDI is joint 21.94 mGy and DLP is 929.67 mGy-cm. Automated exposure control was utilized for the study. A dose lowering technique was utilized adhering to the principles of ALARA. COMPARISON: 04/30/2024 FINDINGS: Lung bases: Unremarkable. No mass. No consolidation. ABDOMEN: Liver: Unremarkable. Gallbladder and bile ducts: The gallbladder is distended but nondilated. No gallstones or surrounding inflammation identified. Common bile duct is borderline dilated measuring 8 mm. There is a 6 mm calculus within the distal common bile duct. Pancreas: Unremarkable. No ductal dilation. Spleen: Unremarkable. No splenomegaly. Adrenals: Unremarkable. No mass. Kidneys and ureters: There are 3 nonobstructive caliceal calculi in the lower pole of the right kidney measuring up to 6 mm. The kidneys are otherwise unremarkable. No hydronephrosis or ureterolithiasis is seen. Stomach and bowel: See below. PELVIS: Appendix: No signs of acute appendicitis. Bowel loops are nondilated. No pneumoperitoneum, free fluid, or acute inflammatory changes are seen involving the bowel. There are staple lines along the stomach and small bowel consistent with previous gastric bypass surgery. Bladder: Unremarkable. No stones. Reproductive: Unremarkable as visualized. ABDOMEN and PELVIS: Intraperitoneal space: The uterus is absent. No free fluid in the pelvis. Bones/joints: No acute fracture. No dislocation. Soft tissues: Unremarkable. Vasculature: The abdominal aorta is mildly calcified but nondilated. There is no aneurysm. This is a noncontrast study. Lymph nodes: Unremarkable. No enlarged lymph nodes. IMPRESSION: 1. Common bile duct is borderline dilated measuring 8 mm. There is a 6 mm calculus within the distal common bile duct. 2. No signs of acute appendicitis. Bowel loops are nondilated. No pneumoperitoneum, free fluid, or acute inflammatory changes are seen involving the bowel. There are staple lines along the stomach and small bowel consistent with previous gastric bypass surgery. 3. There are 3 nonobstructive caliceal calculi in the lower pole of the right kidney measuring up to 6 mm. The kidneys are otherwise unremarkable. No hydronephrosis or ureterolithiasis is seen. 4. No hematoma or free fluid is seen. Electronically signed by: Yadiel Cheney MD 03/18/25 23:37 PM PG Care Time/CCT Total # of Minutes Spent Total Time Spent with Patient: Total time spent is greater than 50% in coordination of care (as documented) at patient's floor/unit and/or counseling patient: Coding Level of Care Code 37896 SUB INP/OBS CARE 3/50MIN Diagnoses Acute kidney injury superimposed on CKD N17.9; N18.9 Iron deficiency anemia D50.9 Ground-level fall W18.30XA Hematoma of scalp S00.03XA Elevated troponin R79.89 Choledocholithiasis K80.50 Atrial fibrillation, permanent I48.21 HTN (hypertension) I10 S/P gastric bypass Z98.84 Hypothyroidism E03.9
[2025-03-19] MEDS: LACTATED RINGER'S 1,000 ML IV SCH (18:29)
[2025-03-19 20:09] LABS: Alanine Aminotransferase 39.0 U/L (7-52); Alkaline Phosphatase 93.0 U/L (34-104); Anion Gap 11.0 (3-11); Bilirubin,Total 0.5 mg/dl (0.2-1.0); Blood Urea Nitrogen 68.0 mg/dl (6-23); Calcium 8.9 mg/dl (8.6-10.3); Carbon Dioxide 19.0 mmol/L (21-32); Chloride 107.0 mmol/L (98-107); Creatinine Clr Calc Pharmacy 8.1 ml/min; Glucose 189.0 mg/dl (70-99(Fasting)); Potassium 4.0 mmol/L (3.5-5.1); Sodium 137.0 mmol/L (136-145); Total Protein 5.9 gm/dl (6.0-8.3)
[2025-03-19] MEDS: APIXABAN 2.5 MG TAB PO SCH (21:54)
--- NOTE | 2025-03-20 00:13 | Magnetic Resonance Report ---
Exam(s): MRI MRCP EXAM: MR Abdomen Without Intravenous Contrast, MRCP Protocol CLINICAL HISTORY: Reason for exam: ?CBD stone on CT, post-prandial nausea/emesis. TECHNIQUE: Multiplanar magnetic resonance images of the abdomen without intravenous contrast using MRCP protocol. COMPARISON: CT scan dated 03/18/2025. FINDINGS: Exam is markedly limited due to motion artifact. Bile ducts: The common bile duct is dilated at 11 mm. There is a 8 mm filling defect noted in the distal portion of the common bile duct. Gallbladder: No definite filling defects are noted. There appears to be fluid around the gallbladder. Liver: The liver is enlarged and of diffuse signal abnormality. Pancreas: . No ductal dilation. Spleen: No splenomegaly. Adrenals: No mass. Kidneys and ureters: . No hydronephrosis. There are rounded lesions noted in both kidneys. Stomach and bowel: There is air and fluid within the stomach. There is air and stool noted in the colon.. IMPRESSION: Markedly limited exam. The common bile duct is dilated at 11 mm. There appears to be an 8 mm calculus noted within the distal portion of the duct. The liver is enlarged and of diffuse signal abnormality which may be due to fatty infiltration and/or hepatocellular disease. There are possible renal cysts. Electronically signed by: Harrison Johnson MD 03/20/25 00:12 AM
[2025-03-20 07:02] LABS: Hematocrit (blood only) 22.3 % (37.0-47.0); Hemoglobin 7.2 g/dl (12.0-16.0); Immature Granulocytes # (auto) 0.02 K/uL (0.01-0.20); Immature Granulocytes % (auto) 0.3 %; Mean Corpuscular Hemoglobin 27.8 pg (25.0-34.0); Mean Corpuscular Volume 86.1 fL (80.0-100.0); Platelet Count 198 K/uL (130-400); RDW Standard Deviation 52.1 fL (36.4-46.3); Red Blood Count 2.59 M/uL (4.20-5.40); White Blood Count 7.22 K/ul (4.8-10.8)
[2025-03-20 07:28] LABS: Anion Gap 8.0 (3-11); Blood Urea Nitrogen 62.0 mg/dl (6-23); Calcium 8.6 mg/dl (8.6-10.3); Carbon Dioxide 23.0 mmol/L (21-32); Chloride 111.0 mmol/L (98-107); Creatinine Clr Calc Pharmacy 8.3 ml/min; Glucose 100.0 mg/dl (70-99(Fasting)); Potassium 3.7 mmol/L (3.5-5.1); Sodium 142.0 mmol/L (136-145)
[2025-03-20 07:38] LABS: Thyroid Stimulating Hormone 2.712 uIu/ml (0.300-4.500)
[2025-03-20 07:39] LABS: Polychromasia 1+
[2025-03-20] MEDS: metroNIDAZOLE 500 MG/100 ML BAG IV SCH (07:46)
[2025-03-20 07:56] VITALS: PULSE 69; RESP 20
[2025-03-20 08:10] LABS: Folate (Folic Acid),Ser orPlas 16.16 ng/ml (>5.38)
[2025-03-20 08:11] LABS: Vitamin B12 > 1500 pg/ml (180-914)
[2025-03-20 08:58] LABS: Hemoglobin A1C 6.5 % (4.5-5.6)
[2025-03-20] MEDS: ERTAPENEM 500MG 500 MG/5 ML SYR IV SCH (09:36)
--- NOTE | 2025-03-20 10:01 | Nephrology Progress Note ---
Date of Service March 20, 2025 Assessment & Plan (1) Iron deficiency anemia: (2) Acute kidney injury superimposed on CKD: (3) Atrial fibrillation, permanent: (4) Anemia: (5) Hematoma of scalp: Plan 1) Acute kidney injury/potential progression of CKD - Non-oliguric. BP and volume status are acceptable. Electrolytes normal. There is no emergent indication for dialysis. Potential future indications have been discussed. - UA bland. Urine microscopic analysis not obtained with admission, data would have relevant. CT demonstrating kidneys to be unobstructed. - FENa, 8.7% upon admission (in context of CKD and at-home diuretic use) - Creatinine high and more or less w/out change since admission. IVF (LR, 80 mL/hr) are being provided. Diuretics held. - Document strict I/Os. Maintain slightly positive fluid balance. - Repeat serum metabolic profile in the AM. - Continue calcitriol per home Rx. (2) CKD (chronic kidney disease) stage 3, GFR 30-59 ml/min: - Baseline creatinine variable (~2.0-2.5 mg/dL). CKD IIIb A1. 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 - Medications are appropriately dosed for kidney function. - Updated SPEP and K/L LC requested, results pending. No monoclonal identified in the past. - Renal diet. (3) Anemia: - Follows with Dr. Nazario at [facility]. History of B12 and iron deficiency. B12 high (> 1500) and folate normal upon admission. - Iron (68), Ferritin (187.4), TIBC (242), transferrin (173) upon admission - MCV is normocytic (86 fL). RDW Coeff high (16.8) - THIEN therapy has not been required. Iron stores are acceptable. Epogen 86738 units SQ provided 08/14, AM. (4) HTN (hypertension): BP acceptable. Antihypertensives have been weaned off. Unable to tolerate MAR/ARB by history.. (5) Atrial fibrillation: Eliquis dose reduced to 2.5 mg BID due to kidney dysfunction and acute on chronic anemia. Admission and Anticipated Discharge Date Admission Date: March 18, 2025 Supervising Physician Co-Signing Physician Notes Deborah was seen and evaluated with Dr. Conde. I independently verified Dr. Conde's assessment and I agree with the plan as outlined. I agree with documentation. I also discussed the patient with Dr. Gallardo today. Deborah has acute kidney injury on chronic kidney disease related to hemodynamic changes and intravascular volume depletion. She is tolerating isotonic IVF for volume expansion. She remains on a clear liquid diet for planned ERCP. Eliquis is now on hold. Medications are appropriate for kidney function. BP and volume status are acceptable. Electrolytes controlled. There is no indication for dialysis at this time. Potential future indications have be discussed with the patient. SIEP + FLC pending. Subjective Patient is a 74 yo F w/ a PMHx of stage III CKD secondary to microvascular disease, iron deficiency anemia, HFpEF (most recent EF 60 to 65%), type II DM, HTN, KEYLA no longer on CPAP after gastric bypass, A-fib on Eliquis. Patient presented and admitted after creatinine was found to increase from 2.94-5.91; admitted for presumed KEKE, though progression of CKD is also possible etiology. Patient thinks she feels worse compared to when she was admitted, specifically worse stomach pain, worse body aches, daily BEACH's, increased sleep requirements, some slower cognition. Review of Systems Review of Systems: All systems reviewed & are unremarkable except as noted in Subjective Physical Exam Constitutional: WD/WN, vitals as above Cardiovascular: Rate/Rhythm: regular rate; + abnormal rhythm Vessels: radial pulses present Extremities: normal capillary refill; no calf tenderness and no pedal edema Gastrointestinal (Abdomen): Inspection/Auscultation: abdomen normal to inspection and normal bowel sounds; abdomen not distended Percussion/Palpation: + abdomen tender (mild tenderness, +2/10); abdomen not rigid and no hepatosplenomegaly Psychiatric: A+Ox3, euthymic affect Results & Data Vital Signs (Past 12 Hours) Vital Signs Temp Pulse Resp BP Pulse Ox O2 Del Method 03/20/25 08:00 Room Air 03/20/25 07:55 36.6 C 69 20 157/79 H 97 Room Air 03/20/25 02:56 36.7 C 66 16 137/78 96 Room Air 03/19/25 23:13 36.3 C L 77 16 128/72 95 Room Air Laboratory Results Laboratory Results - last 24 hr 03/19/25 03/20/25 19:02 06:33 WBC 7.22 RBC 2.59 L Hgb 7.2 L Hct 22.3 L MCV 86.1 MCH 27.8 MCHC 32.3 RDW Std Deviation 52.1 H RDW Coeff of Jamar 16.8 H Plt Count 198 MPV 10.1 Immature Gran % (Auto) 0.3 Neut % (Auto) 65.9 Lymph % (Auto) 22.4 [place] % (Auto) 6.1 Eos % (Auto) 4.6 Baso % (Auto) 0.7 Neut # (Auto) 4.76 Lymph # (Auto) 1.62 [place] # (Auto) 0.44 Eos # (Auto) 0.33 Baso # (Auto) 0.05 Immature Gran # (Auto) 0.02 Polychromasia 1+ Sodium 137 142 Potassium 4.0 D 3.7 Chloride 107 111 H Carbon Dioxide 19 L 23 Anion Gap 11 8 BUN 68 H 62 H Creatinine 5.94 H* D 5.90 H* Est Cr Clr Drug Dosing 8.1 8.3 eGFR 7.01 7.07 BUN/Creatinine Ratio 11.4 10.5 Glucose 189 H 100 H Estimat Average Glucose 140 Hemoglobin A1c 6.5 H Calcium 8.9 8.6 Phosphorus 7.2 H Total Bilirubin 0.5 Direct Bilirubin 0.1 AST 30 ALT 39 Alkaline Phosphatase 93 Total Protein 5.9 L Total Protein (PEP) Pending Albumin 3.6 3.4 Albumin (PEP) Pending Notwr-2-Echxublch Pending Hnuse-9-Krmhqogiv Pending Wjov-3-Fjervtar Pending Epdh-6-Yfptgkun Pending Gamma Globulins Pending Monoclonal Peak 3 Pending Ser Monoclonl Protein Pending Ser Monoclonal Prot 2 Pending PEP Interpretation Pending Vitamin B12 > 1500 H Folate 16.16 TSH 2.712 Serum Immunofixation Pending Free Wittmann LC, Quant Pending Free Lambda LC, Quant Pending Free Wittmann/Lambda Ratio Pending
[2025-03-20 12:08] VITALS: BP 134/74; TEMP 98.1; O2SAT 96
[2025-03-20] MEDS: SUCRALFATE 1 GM/10 ML UDC PO SCH (14:06)
--- NOTE | 2025-03-20 15:01 | Discharge Summary ---
Discharge Summary Date of Service March 20, 2025 Principal Dx & Hospital Course #1 = Principal Diagnosis (1) Acute kidney injury superimposed on CKD: (2) Iron deficiency anemia: (3) Ground-level fall: (4) Hematoma of scalp: (5) Elevated troponin: (6) Choledocholithiasis: (7) Atrial fibrillation, permanent: (8) HTN (hypertension): (9) S/P gastric bypass: (10) Hypothyroidism: Plan 74yo female with history of stage III CKD, iron deficiency anemia, HFpEF (most recent EF 60 to 65%), type II DM, HTN, KEYLA no longer on CPAP after gastric bypass, permanent A-fib on Eliquis. Had a fall with head injury in February. Presented after outpatient labs showed her creatinine increased from 2.94-5.91. #KEKE on Stage 3 CKD - -baseline Cr about 2.5 to 3 over the last 6 months -presenting Cr 5.91 -FENa 8.6% -no obstruction seen on CT abd/pelvis; multiple kidney stones seen but none are obstructing -u/a bland - no blood, protein, or casts -CPK wnl despite recent fall in late February -patient reports weight loss, poor appetite, etc over the last several weeks (possibly due to choledocholiathiasis??) -suspect poor oral intake was the culprit for the KEKE; can't rule out rhabdomyolysis as the fall was several weeks ago and she could have theoretically cleared the myoglobin following the fall but unlikely scenario -hold diuretics -cont IVF with lactated ringers -appreciate consult by Dr Knight from [facility] Ne[facility] -fortunately she is nonoliguric, K level is acceptable, and she has minimal acidosis - no indication for HD -volume status is acceptable at this time as well -creatinine thus far has not improved appreciably but hopefully will start to decrease with supportive care & time -repeat BMP am #choledocholithiasis - -admission CT a/p shows a dilated CBD at 8mm and a possible distal CBD stone of 6mm in diameter -her LFTs are normal -over the last several weeks she has had symptoms possibly due to choledocholithiasis -- poor appetite, nausea and abdominal discomfort post- prandially, weight loss, chills -could this be the cause of her overall illness - poor PO intake from the CBD stone, leading to intravascular volume depletion and development of KEKE?? -rechecked LFTs this evening - wnl (does have chronically elevated AST/ALT, however) -will obtain 2 sets of blood cultures - at high risk of sepsis/bacteremia with the possible CBD stone -HOLD Eliquis in the event she needed ERCP -MRCP ordered on urgent basis -if there is a CBD stone confirmed on MRCP start broad-spectrum IV antibiotics to cover for cholangitis/cover the biliary tree -downgrade diet to clears while awaiting MRCP/results of work-up #hypokalemia - -replace, serial BMP -mag level noted to be wnl #Anemia - -chronic, dating back to pre-2019 -iron deficiency by history - follows with [facility] hematology clinic in [place] & had had IV iron infusions -iron studies this admission with acceptable iron stores/levels -hemoglobin has dropped about 1 gm from admission; typical amount in the setting of frequent blood draws in the first 24 hours of admission along with IV fluids/dilutional affect -no obvious GI blood loss -appreciate [facility] Neph[facility] consult; Epogen to be provided -much of her chronic anemia is likely due to her CKD -for completeness check B12/folate/TSH in am #fall/head injury/forehead hematoma - -s/p fall 2-3 weeks ago at her home -fortunately no ICH on head CT; just forehead hematoma -can use warm packs to speed resolution -could easily have had concussion from her head injury #elevated troponin - -peak HS trop 17.9 -EKG without ischemic changes -likely myocardial demand ischemia in setting of severe KEKE #permanent a.fib - -rates controlled -HOLD Eliquis in the event MRCP confirms CBD stone and ERCP is needed -she is not on AV john agents at baseline #HFpEF - -volume depleted on admission -most recent echo 07/2024 - EF 60-65%, mild LVH, mild atrial dilatation, mild MR -hold bumex due to KEKE -thus far appears compensated, although may have JVD with b/l basilar rales on exam; caution with IVF #HTN - -BPs mildly high upon admission but remaining BPs since are acceptable without anti-hypertensives #GERD/Hx gastric bypass - -continue PPI -gastric bypass procedure 12-15 years ago at [facility] #mental health - -continue paroxetine #T2DM - -not on medicine or insulin at this time -check Hba1c in am but uncertain reliability of such due to chronic anemia #h/o KEYLA - -no longer on CPAP following significant weight loss s/p gastric bypass #h/o abnormal TSH - -check TFTs in am care d/w Dr Knight from nephrology via [place] correspondence Admission HPI Per Admitting Provider Patient is a 74-year-old female with past medical history of stage III CKD secondary to microvascular disease, iron deficiency anemia, HFpEF (most recent EF 60 to 65%), type II DM, HTN, KEYLA no longer on CPAP after gastric bypass, A- fib on Eliquis. Patient presented after creatinine was found to increase from 2.94-5.91. She is being admitted for an KEKE. Patient seen at bedside. She stated she had outpatient labs which showed her increasing creatinine and was told to come into the ED. patient has felt relatively well at home. She did have a fall approximately 3 weeks ago outside of [facility]. She tripped and hit her head off the window and ground was evaluated at an ED in the [place] area. She has a significant frontal scalp hematoma and a broken nose. She denies any rib fractures or extremity injury. She has felt dizzy and lightheaded since the fall with intermittent headaches. She denies any chest pain, shortness of breath, abdominal pain, decrease in urinary output, worsening lower extremity edema (improved from baseline). She stated a couple days ago she did have some itching and difficulty urinating however has now resolved. She stated her appetite has been stable and fluid intake has been stable. She has been taking Tylenol for her headaches but no NSAIDs. She denies any acute blood loss like hematuria or hematochezia. She does follow with [facility]/hematology for her iron deficiency anemia and has not had an infusion in approximately 1 year. She has a history of gastric bypass and is no longer on anything for diabetes or obstructive sleep apnea. She is due for her evening medications. She does take Bumex at home and occasionally takes an increased dose if she has significant edema however has not needed any increase in dose recently as her edema and weights have been stable. 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 Discharge Exam gen - lying comfortably in bed, NAD head - signs of trauma with large hematoma center of forehead and multiple bruises on her face (below both eyes, cheeks, etc) mouth - MMM neck - suspected JVD vs prominent jugular vein pulsations heart - irregularly irregular, s1 s2, no murmur lungs - mild b/l basilar rales, no wheeze abd - soft, mildly tender RUQ/high epigastric region, BS+, no peritoneal signs, no HSM ext - no edema, pulses b/l feet 2+ psych - a/o x 3 Discharge Plan Discharge Items Patient Disposition: Transfer Acute Care Hospital Reason For Visit: KEKE, ANEMIA Condition on Discharge: Fair Follow-up/Referrals: Adrian Leung [Primary Care Provider] - Stand-Alone Forms: My [facility] Medications and DC Order Prescriptions: No Action bumetanide 1 mg tablet 1 mg PO DAILY Qty: 90 3RF Hold Instructions: Resume on 05/03/24. calcitriol 0.5 mcg capsule 1 mcg PO DAILY Qty: 180 3RF polyethylene glycol 3350 [Miralax] 17 gram/dose powder 17 g PO DAILY PRN (Reason: Constipation) atorvastatin 40 mg tablet 40 mg PO DAILY oxycodone 10 mg tablet 10 mg PO Q8H PRN (Reason: Pain) nystatin [Nyamyc] 100,000 unit/gram powder 1 applic topical DAILY PRN (Reason: Other) acetaminophen 650 mg tablet extended release 650 mg PO Q12H PRN (Reason: Pain) multivitamin [Daily Multi-Vitamin] Tablet 1 tab PO DAILY Natural Tears (PF) 0.1-0.3 % dropperette 1 drp ophthalmic (eye) DAILY PRN (Reason: Other) montelukast 10 mg tablet 10 mg PO DAILY cholecalciferol (vitamin D3) 1 cap PO DAILY hydroxyzine HCl 50 mg tablet 50 mg PO TID PRN (Reason: itching) albuterol sulfate 90 mcg/actuation HFA aerosol inhaler 2 puffs inhalation Q6H PRN (Reason: shortness of breath or wheezing) paroxetine HCl 30 mg tablet 40 mg PO DAILY mecobalamin (vitamin B12) 1,000 mcg lozenge 1,000 mcg PO DAILY Rx Instructions: allow to dissolve in mouth OR may chew lightly before swallowing mirtazapine 30 mg tablet 30 mg PO QPM levocetirizine 5 mg tablet 5 mg PO DAILY vitamin B complex Tablet 1 tab PO DAILY Eliquis 5 mg tablet 5 mg PO BID Qty: 180 3RF pantoprazole [Protonix] 40 mg tablet,delayed release (DR/EC) 40 mg PO DAILY Qty: 30 0RF Krames/Other Patient Handouts: Managing Type 2 Diabetes Admission Data Admit Date/Time: 03/18/25 20:57 Attending Provider: Jonathan Gallardo Admit Provider: Peter Urena Primary Care Provider: Adrian Leung Other Providers: Peter Urena; Bernardino Knight Other Interventions: Discharge Summary Assessment (RN) Last Done: 03/20/25 14:50 Hospital Stay Data Consultations 03/18/25 19:34 ED Decision to Admit Stat 03/19/25 03:51 Consult Nephrology Routine 03/20/25 14:37 Radiology Transfer Of Images Stat Diagnostic Imagining Performed 03/18/25 17:55 CT head/brain wo con Stat 03/18/25 20:35 CT Abd and Pelvis [CT abd pelvis wo con] Stat 03/19/25 18:15 MR MRCP Urgent Coding Diagnoses Acute kidney injury superimposed on CKD N17.9; N18.9 Iron deficiency anemia D50.9 Ground-level fall W18.30XA Hematoma of scalp S00.03XA Elevated troponin R79.89 Choledocholithiasis K80.50 Atrial fibrillation, permanent I48.21 HTN (hypertension) I10 S/P gastric bypass Z98.84 Hypothyroidism E03.9
[2025-03-24 09:43] LABS: Albumin 3.1 g/dL (3.8-4.8); Beta-1-Globulin 0.3 g/dL (0.4-0.6); Gamma Globulin 0.5 g/dL (0.8-1.7); Total Protein 5.0 g/dL (6.1-8.1)
== END 2025-03-20 15:50 | disposition short-term general hospital (02) | DRG 445 ==
LOC: ED 17:45 → 2S 20:57 → SUATTDRO 20:57 → 2S 21:44

== ENCOUNTER 2025-06-11 13:37 | Inpatient (IN) ==
--- NOTE | 2025-06-11 14:04 | Emergency Department Note ---
Impression & Plan Acute confusion, Chronic kidney disease, stage IV (severe), Atrial fibrillation, permanent, Pruritus ED Provider Note NAME: MICHAEL MCCORMACK AGE: 74 SEX: F : 1950 ARRIVES VIA: Walk-In INFORMANT: Patient, ED PROVIDER(S): Jalil Finney MD CHIEF COMPLAINT: Confusion, itchiness MEDICAL DECISION MAKING: Patient presents with the above. IV was established and blood work was obtained. Patient was ordered IV methylprednisolone as well as IV Pepcid. Patient with a normal white count hemoglobin of 9.3 which is improved compared to prior. Kidney function quite poor with a creat of 6.4 but potassium is not elevated and actually low at 3.1. BUN not significantly high at 42. I did consider biliary pathology or hyper uremia or CKD as possible causes of the patient's itchiness. The patient did have improvement in itchiness after the medications given. Patient has significant tangential thinking as well as confusi reported confusion at home and paranoia. The patient has had a lack of sleep. Did consider the possibility of Benadryl causing some of the symptoms but the patient does use this fairly sparingly. I did speak with the on-call hospitalist service Dr. Che who agrees with admission and also agrees with possible psychiatric consultation. Routine consult was placed. I did inform the patient of these findings. Patient was admitted to the medicine service. Discussion w/ other healthcare providers: Dr. Che inpatient medicine service Prior /Outside records reviewed: I reviewed part of a recent discharge summary from [facility] emergency department visit from May 28 to [address] Cordero. Differential diagnosis: Infection, hyper uremia, CKD, dehydration, metabolic abnormality, hypo/hyperglycemia, electrolyte imbalance, anemia, UTI, pneumonia, thyroid dysfunction among others were considered. Diagnostics, as interpreted by me: EKG: Likely A-fib, ventricular rate of 80 normal QRS duration. No obvious ST elevations Cardiac monitoring: An order was placed for continuous cardiac monitoring. The monitor shows a rate of 82 with sinus rhythm. Patient was placed on pulse oximetry Medical decision rules: None Imaging studies: I informally interpreted the patient's chest x-ray does not show evidence of obvious pneumothorax with formal report to follow. HPI: Patient presents due to concern for increased itchiness. Reportedly has had issues over about the last 3 weeks in duration. Patient did have a prior cholecystectomy and biliary stent that was placed in May. Patient subsequently did have an admission for possible stroke at [facility] on May 28. I did review the patient's MRI and MRA studies which showed that she had likely senescent changes but no evidence of acute stroke. Patient does have a prior history of a right facial droop which is unchanged. Patient states that she has been itchy for some time but denies any recent changes in medications creams or detergents. Patient is accompanied by her brother who was concerned that she was paranoid this morning thinking that people were watching her or "out to get her." No reported alcohol tobacco or drug use. Patient denies any obvious insect bites. PAST MEDICAL HISTORY: See Below PAST SURGICAL HISTORY: See Below SOCIAL HISTORY: See Below HOME MEDICATIONS: See Below ALLERGIES: See Below VITALS: See Below PHYSICAL EXAMINATION: GENERAL: NAD, non-toxic. EYE EXAM: Normal conjunctiva. PERRL, no anisocoria and EOM's grossly intact w/o pain. OROPHARYNX: Dry mucus membranes, grossly normal dentition. NECK: Trachea midline, no stridor. LUNGS: Clear to auscultation. Normal chest wall mechanics. HEART: Irregularly irregular, no MRG. ABDOMEN: Abdomen soft, non-tender, no masses, no rebound or guarding. BACK: No CVA TTP. SKIN: Areas of excoriated skin likely consistent with scratching. UPPER EXTREMITIES: Upper extremities are grossly normal. LOWER EXTREMITIES: Grossly normal, no edema. NEURO EXAM: Awake and alert, follows commands, oriented to person, birthday, relative in the room, year, as well as simple arithmetic, slight difficulty with raising the right side of the face when compared to the left. Tangential speech. Moves all 4 extremities. Past Med/Surg History Problem List (Updated 06/11/25 @ 20:28 by Jalil Finney MD) Pruritus (Acute) Acute confusion (Acute) Confusion with nonfocal neurological examination Type 2 diabetes mellitus with hyperglycemia Essential hypertension Hypothyroidism Obstructive sleep apnea Chronic heart failure with preserved ejection fraction Chronic kidney disease, stage IV (severe) (Acute) Iron deficiency anemia Atrial fibrillation, permanent (Chronic) Asthma (Chronic) Dyslipidemia (Chronic) skilled nursing (current) use of anticoagulants (Chronic) Medical History Choledocholithiasis Ground-level fall CKD (chronic kidney disease) stage 3, GFR 30-59 ml/min Vitamin B12 deficiency Uterine cancer Esophageal ulcer SBO (small bowel obstruction) Surgical History S/P RISHABH-BSO (total abdominal hysterectomy and bilateral salpingo-oophorectomy) S/P partial thyroidectomy S/P tonsillectomy S/p total knee replacement, bilateral S/P gastric bypass Open gastric bypass by Dr. 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[employer] Service Required: No Beliefs That Will Affect Care: None Current Living Situation: Spouse Current Living Situation Comment: lives at home Feels Safe at Home: Yes Assistive Devices: Glasses Allergies Allergies Allergy/AdvReac Type Severity Reaction Status Date / Time amoxicillin Allergy Intermediate RASH Verified 04/09/25 13:02 clavulanic acid Allergy Intermediate RASH Verified 04/09/25 13:02 ibuprofen Allergy Mild ITCHING Verified 04/09/25 13:02 Penicillins Allergy Mild ITCHING Verified 04/09/25 13:02 Home Meds Home Medications Medication Instructions Recorded Confirmed albuterol sulfate 90 mcg/actuation 2 puffs inhalation Q6H PRN 04/16/19 06/11/25 aerosol inhaler shortness of breath or wheezing hydroxyzine HCl 50 mg tablet 50 mg PO TID PRN itching 04/16/19 06/11/25 paroxetine HCl 30 mg tablet 0 mg PO DAILY 06/22/21 06/11/25 acetaminophen 650 mg 650 mg PO Q12H PRN Pain 12/27/21 06/11/25 tablet,extended release atorvastatin 40 mg tablet 40 mg PO DAILY 12/27/21 06/11/25 dextran 70-hypromellose (PF) 0.1 1 drp ophthalmic (eye) DAILY PRN 12/27/21 06/11/25 %-0.3 % eye drops in a dropperette Other (Natural Tears (PF)) montelukast 10 mg tablet 0 mg PO DAILY 12/27/21 06/11/25 multivitamin (Daily Multi-Vitamin 1 tab PO DAILY 12/27/21 06/11/25 tablet) nystatin 100,000 unit/gram topical 1 applic topical DAILY PRN Other 12/27/21 06/11/25 powder (Nyamyc) oxycodone 10 mg tablet 10 mg PO Q8H PRN Pain 12/27/21 06/11/25 polyethylene glycol 3350 17 17 g PO DAILY PRN Constipation 12/27/21 06/11/25 gram/dose oral powder (Miralax) mecobalamin (vitamin B12) 1,000 1,000 mcg PO DAILY 09/14/22 06/11/25 mcg lozenges mirtazapine 30 mg tablet 30 mg PO QPM 09/14/22 06/11/25 cholecalciferol (vitamin D3) 1 cap PO DAILY 09/06/23 06/11/25 levocetirizine 5 mg tablet 0 mg PO DAILY 01/01/25 06/11/25 vitamin B complex 1 tab PO DAILY 01/01/25 06/11/25 bumetanide 1 mg tablet 0 mg PO DAILY edema 06/11/25 06/11/25 pantoprazole 40 mg tablet,delayed 0 mg PO DAILY 06/11/25 06/11/25 release (Protonix) Previous Rx's Medication Instructions Recorded apixaban 5 mg tablet (Eliquis) 5 mg PO BID #180 tabs 01/01/25 calcitriol 0.5 mcg capsule 0.5 mcg PO DAILY #90 caps 04/09/25 Results & Data (ED) Vital Signs Vital Signs - 24 hr 06/11/25 13:42 06/11/25 13:54 06/11/25 14:05 Temperature 36.8 C Temperature Source Skin Pulse Rate 90 Pulse Rate [Apical] Pulse Rate from SpO2 Sensor Pulse Rhythm [Apical] Pulse Strength [Apical] Respiratory Rate 18 Respiratory Effort / Characteristics Non-Labored Spontaneous Respiratory Depth Normal Respiratory Pattern Regular Blood Pressure 145/71 H Blood Pressure [Right Arm] Blood Pressure Mean 95 Blood Pressure Mean [Right Arm] Pulse Oximetry 97 94 97 Oxygen Delivery Method Room Air Room Air Room Air Sepsis Recent Fever Within 48 Hours No Sepsis New/Unexplained Change in Mental Status N/A Sepsis Action Taken by Nursing No Action Required 06/11/25 14:40 06/11/25 15:06 06/11/25 15:15 Temperature Temperature Source Pulse Rate 75 Pulse Rate [Apical] 89 Pulse Rate from SpO2 Sensor Pulse Rhythm [Apical] Pulse Strength [Apical] Respiratory Rate 19 19 21 Respiratory Effort / Characteristics Non-Labored Spontaneous Respiratory Depth Normal Respiratory Pattern Blood Pressure Blood Pressure [Right Arm] 133/86 Blood Pressure Mean Blood Pressure Mean [Right Arm] 101 Pulse Oximetry 96 Oxygen Delivery Method Room Air Sepsis Recent Fever Within 48 Hours Sepsis New/Unexplained Change in Mental Status Sepsis Action Taken by Nursing 06/11/25 15:22 06/11/25 15:47 06/11/25 16:12 Temperature Temperature Source Pulse Rate 79 83 Pulse Rate [Apical] 83 Pulse Rate from SpO2 Sensor 82 Pulse Rhythm [Apical] Regular Pulse Strength [Apical] Normal Respiratory Rate 20 27 H Respiratory Effort / Characteristics Non-Labored Respiratory Depth Normal Respiratory Pattern Blood Pressure Blood Pressure [Right Arm] 142/70 H Blood Pressure Mean Blood Pressure Mean [Right Arm] 94 Pulse Oximetry 100 96 Oxygen Delivery Method Room Air Sepsis Recent Fever Within 48 Hours Sepsis New/Unexplained Change in Mental Status Sepsis Action Taken by Nursing 06/11/25 16:15 06/11/25 16:21 06/11/25 16:21 Temperature Temperature Source Pulse Rate 79 Pulse Rate [Apical] Pulse Rate from SpO2 Sensor 74 Pulse Rhythm [Apical] Pulse Strength [Apical] Respiratory Rate 20 Respiratory Effort / Characteristics Respiratory Depth Respiratory Pattern Blood Pressure 131/79 131/79 Blood Pressure [Right Arm] Blood Pressure Mean 103 103 Blood Pressure Mean [Right Arm] Pulse Oximetry 94 Oxygen Delivery Method Sepsis Recent Fever Within 48 Hours Sepsis New/Unexplained Change in Mental Status Sepsis Action Taken by Nursing 06/11/25 16:21 06/11/25 16:21 06/11/25 16:21 Temperature Temperature Source Pulse Rate Pulse Rate [Apical] Pulse Rate from SpO2 Sensor Pulse Rhythm [Apical] Pulse Strength [Apical] Respiratory Rate Respiratory Effort / Characteristics Respiratory Depth Respiratory Pattern Blood Pressure 131/79 131/79 131/79 Blood Pressure [Right Arm] Blood Pressure Mean 103 103 103 Blood Pressure Mean [Right Arm] Pulse Oximetry Oxygen Delivery Method Sepsis Recent Fever Within 48 Hours Sepsis New/Unexplained Change in Mental Status Sepsis Action Taken by Nursing 06/11/25 16:21 06/11/25 16:30 06/11/25 16:45 Temperature Temperature Source Pulse Rate 74 77 76 Pulse Rate [Apical] Pulse Rate from SpO2 Sensor 78 78 77 Pulse Rhythm [Apical] Pulse Strength [Apical] Respiratory Rate 25 H 29 H 27 H Respiratory Effort / Characteristics Respiratory Depth Respiratory Pattern Blood Pressure Blood Pressure [Right Arm] Blood Pressure Mean Blood Pressure Mean [Right Arm] Pulse Oximetry 97 95 95 Oxygen Delivery Method Sepsis Recent Fever Within 48 Hours Sepsis New/Unexplained Change in Mental Status Sepsis Action Taken by Nursing 06/11/25 17:00 06/11/25 17:15 06/11/25 17:21 Temperature Temperature Source Pulse Rate 77 79 73 Pulse Rate [Apical] Pulse Rate from SpO2 Sensor 78 85 84 Pulse Rhythm [Apical] Pulse Strength [Apical] Respiratory Rate 17 29 H 17 Respiratory Effort / Characteristics Respiratory Depth Respiratory Pattern Blood Pressure Blood Pressure [Right Arm] Blood Pressure Mean Blood Pressure Mean [Right Arm] Pulse Oximetry 95 96 83 L Oxygen Delivery Method Sepsis Recent Fever Within 48 Hours Sepsis New/Unexplained Change in Mental Status Sepsis Action Taken by Nursing 06/11/25 17:31 06/11/25 17:31 06/11/25 17:31 Temperature Temperature Source Pulse Rate Pulse Rate [Apical] Pulse Rate from SpO2 Sensor Pulse Rhythm [Apical] Pulse Strength [Apical] Respiratory Rate Respiratory Effort / Characteristics Respiratory Depth Respiratory Pattern Blood Pressure 150/109 H 150/109 H 150/109 H Blood Pressure [Right Arm] Blood Pressure Mean 136 136 136 Blood Pressure Mean [Right Arm] Pulse Oximetry Oxygen Delivery Method Sepsis Recent Fever Within 48 Hours Sepsis New/Unexplained Change in Mental Status Sepsis Action Taken by Nursing 06/11/25 17:31 06/11/25 17:33 Temperature Temperature Source Pulse Rate 89 Pulse Rate [Apical] Pulse Rate from SpO2 Sensor 88 Pulse Rhythm [Apical] Pulse Strength [Apical] Respiratory Rate 20 Respiratory Effort / Characteristics Respiratory Depth Respiratory Pattern Blood Pressure 150/109 H Blood Pressure [Right Arm] Blood Pressure Mean 136 Blood Pressure Mean [Right Arm] Pulse Oximetry 98 Oxygen Delivery Method Sepsis Recent Fever Within 48 Hours Sepsis New/Unexplained Change in Mental Status Sepsis Action Taken by [facility] Medications Current Medication List: was personally reviewed by me Laboratory Data Attestation: I reviewed the patient's lab results. 06/11/25 Unknown 06/11/25 Unknown Lab Results 06/11/25 06/11/25 Range/Units 15:50 Unknown WBC 8.12 (4.8-10.8) K/ul RBC 3.30 L (4.20-5.40) M/uL Hgb 9.3 L (12.0-16.0) g/dl Hct 29.1 L (37.0-47.0) % MCV 88.2 (80.0-100.0) fL MCH 28.2 (25.0-34.0) pg MCHC 32.0 (32.0-36.0) g/dL RDW Std Deviation 47.1 H (36.4-46.3) fL RDW Coeff of Jamar 14.4 (11.5-14.5) % Plt Count 216 (130-400) K/uL MPV 9.6 (9.4-12.4) fL Immature Gran % (Auto) 0.4 % Neut % (Auto) 66.8 % Lymph % (Auto) 16.7 % [place] % (Auto) 9.4 % Eos % (Auto) 5.8 % Baso % (Auto) 0.9 % Neut # (Auto) 5.43 (1.40-6.50) K/uL Lymph # (Auto) 1.36 (1.20-3.40) K/uL [place] # (Auto) 0.76 H (0.11-0.59) K/uL Eos # (Auto) 0.47 (0.00-0.50) K/uL Baso # (Auto) 0.07 (0.00-0.20) K/uL Immature Gran # (Auto) 0.03 (0.01-0.20) K/uL Sodium 139 (136-145) mmol/L Potassium 3.1 L (3.5-5.1) mmol/L Chloride 103 (98-107) mmol/L Carbon Dioxide 24 (21-32) mmol/L Anion Gap 12 H (3-11) BUN 42 H (6-23) mg/dl Creatinine 6.41 H* (0.6-1.2) mg/dl Est Cr Clr Drug Dosing 7.2 ml/min eGFR 6.40 BUN/Creatinine Ratio 6.6 L (10-20) Glucose 102 H (70-99(Fasting)) mg/dl Calcium 9.9 (8.6-10.3) mg/dl Magnesium 1.8 (1.7-2.4) mg/dl Total Bilirubin 0.9 (0.2-1.0) mg/dl AST 52 H (13-39) U/L ALT 20 (7-52) U/L Alkaline Phosphatase 80 (34-104) U/L Total Protein 7.5 (6.0-8.3) gm/dl Albumin 4.7 (3.4-5.0) gm/dl Globulin 2.8 (2.5-4.0) gm/dl Albumin/Globulin Ratio 1.7 (0.9-2) TSH 3.974 (0.300-4.500) uIu/ml Urine Color Yellow Urine Appearance Clear (Clear) Urine pH 5.5 (4.5-7.5) Ur Specific [place] 1.006 (1.000-1.030) Urine Protein Negative (Negative) Urine Glucose (UA) Negative (Negative) Urine Ketones Negative (Negative) Urine Blood 2+ H (Negative) Urine Nitrite Negative (Negative) Urine Bilirubin Negative (Negative) Urine Urobilinogen Negative (Negative) Ur Leukocyte Esterase Negative (Negative) Urine WBC (Auto) 0-5 (0-5) /hpf Urine RBC (Auto) 0-2 (0-2) /hpf U Hyaline Cast (Auto) 0-2 (0-2) /lpf U Epithel Cells (Auto) 0-2 (0-2) /hpf Urine Bacteria (Auto) None Seen (None Seen) Urine Comment Urine Opiates Screen Neg (Neg) Ur Methadone, Qual Neg (Neg) Urine Fentanyl Screen Neg (Neg) Urine Barbiturates Neg (Neg) Ur Phencyclidine (PCP) Neg (Neg) U Amphetamin/Meth Scrn Neg (Neg) MDMA (Ecstasy) Screen Neg (Neg) U Benzodiazepines Scrn Neg (Neg) Ur Cocaine Metabolite Neg (Neg) U Marijuana (THC) Screen Neg (Neg) Administered Medications Discontinued Medications Famotidine (Pepcid 20mg Iv Push) 20 mg in 5 mls @ 2.5 mls/min IV NOW STA Stop: 06/11/25 14:33 Last Admin: 06/11/25 14:42 Dose: 2.5 mls/min Documented By: CAROLINE Sodium Chloride (Nss) 500 mls @ 999 mls/hr IV .Q31M ONE Stop: 06/11/25 15:24 Last Infusion: 06/11/25 16:05 Dose: Infused Documented By: phan Admin: 06/11/25 15:48 Dose: 999 mls/hr Documented By: [email or web address] Methylprednisolone (Methylprednisolone 125 Mg/2 Ml Vial) 60 mg IV NOW STA Stop: 06/11/25 14:33 Last Admin: 06/11/25 14:41 Dose: 60 mg Documented By: [facility] Imaging Data Radiologist's Impression: Chest X-Ray 06/11/25 14:05 XR chest 1V portable CLINICAL HISTORY: weakness COMPARISON STUDY: 03/02/2025 FINDINGS: Stable cardiomegaly without pulmonary vascular congestion. No consolidation or pleural effusion seen. No pneumothorax. Stable small nodule left midlung. IMPRESSION: No acute findings. ACT 112: Negative or not required by law. Electronically signed by: Jonh Ventura M.D. 06/11/2025 2:[address] 06/11/25 14:33 CT head/brain wo con CLINICAL HISTORY: confusion. TECHNIQUE: Multiple axial CT images of the head were obtained without contrast. A dose lowering technique was utilized adhering to the principles of ALARA. CT DOSE: 703.85 mGy.cm COMPARISON: 03/18/2025 FINDINGS: No intracranial hemorrhage seen. No mass effect, midline shift, or hydrocephalus. Stable mild chronic small vessel ischemic changes. Visualized paranasal sinuses and mastoid air cells are clear. No skull fracture seen. IMPRESSION: No acute findings. ACT 112: Negative or not required by law. The above report was generated using voice recognition software. It may contain grammatical, syntax or spelling errors. Electronically signed by: Jonh Ventura M.D. 06/11/2025 3:46 PM Discharge Plan Visit Data Chief Complaint: Confusion Stated Complaint: ITCHING AND CONFUSION ED Provider: Jalil Finney Discharge Problem: Acute confusion, Chronic kidney disease, stage IV (severe), Atrial fibrillation, permanent, Pruritus Patient Disposition: Admitted As Inpatient Condition: Good
[2025-06-11 14:21] LABS: Hematocrit (blood only) 29.1 % (37.0-47.0); Hemoglobin 9.3 g/dl (12.0-16.0); Immature Granulocytes # (auto) 0.03 K/uL (0.01-0.20); Immature Granulocytes % (auto) 0.4 %; Mean Corpuscular Hemoglobin 28.2 pg (25.0-34.0); Mean Corpuscular Volume 88.2 fL (80.0-100.0); Platelet Count 216 K/uL (130-400); RDW Standard Deviation 47.1 fL (36.4-46.3); Red Blood Count 3.30 M/uL (4.20-5.40); White Blood Count 8.12 K/ul (4.8-10.8)
--- NOTE | 2025-06-11 14:33 | XRay Report ---
XR chest 1V portable CLINICAL HISTORY: weakness COMPARISON STUDY: 03/02/2025 FINDINGS: Stable cardiomegaly without pulmonary vascular congestion. No consolidation or pleural effu debra seen. No pneumothorax. Stable small nodule left midlung. IMPRESSION: No acute findings. ACT 112: Negative or not required by law. Electronically signed by: Jonh Ventura M.D. 06/11/2025 2:30 PM
[2025-06-11] MEDS: FAMOTIDINE 20MG IV PUSH 20 MG/5 ML SYR IV STA (14:42)
[2025-06-11 14:48] LABS: Alanine Aminotransferase 20.0 U/L (7-52); Albumin Globulin Ratio 1.7 (0.9-2); Albumin Level 4.7 gm/dl (3.4-5.0); Alkaline Phosphatase 80.0 U/L (34-104); Anion Gap 12.0 (3-11); Bilirubin,Total 0.9 mg/dl (0.2-1.0); Blood Urea Nitrogen 42.0 mg/dl (6-23); Calcium 9.9 mg/dl (8.6-10.3); Carbon Dioxide 24.0 mmol/L (21-32); Chloride 103.0 mmol/L (98-107); Creatinine Clr Calc Pharmacy 7.2 ml/min; Globulin 2.8 gm/dl (2.5-4.0); Glucose 102.0 mg/dl (70-99(Fasting)); Magnesium 1.8 mg/dl (1.7-2.4); Potassium 3.1 mmol/L (3.5-5.1); Sodium 139.0 mmol/L (136-145); Total Protein 7.5 gm/dl (6.0-8.3)
[2025-06-11 15:06] LABS: Thyroid Stimulating Hormone 3.974 uIu/ml (0.300-4.500)
[2025-06-11] MEDS: SODIUM CHLORIDE 0.9% 500 ML IV ONE (15:48)
--- NOTE | 2025-06-11 15:48 | CT Scan Report ---
CT head/brain wo con CLINICAL HISTORY: confusion. TECHNIQUE: Multiple axial CT images of the head were obtained without contrast. A dose lowering tech nique was utilized adhering to the principles of ALARA. CT DOSE: 703.85 mGy.cm COMPARISON: 03/18/2025 FINDINGS: No intracranial hemorrhage seen. No mass effect, midline shift, or hydrocephalus. Stable mi ld chronic small vessel ischemic changes. Visualized paranasal sinuses and mastoid air cells are zaira r. No skull fracture seen. IMPRESSION: No acute findings. ACT 112: Negative or not required by law. The above report was generated using voice recognition software. It may contain grammatical, syntax o r spelling errors. Electronically signed by: Jonh Ventura M.D. 06/11/2025 3:46 PM
[2025-06-11 16:08] LABS: Appearance Urine Clear (Clear); Bacteria Urine Automated None Seen (None Seen); Cast Urine Automated 0-2 /lpf (0-2); Epithelial Cell Urine Auto 0-2 /hpf (0-2); Glucose Urine UA Negative (Negative); RBC Urine Automated 0-2 /hpf (0-2); WBC Urine Automated 0-5 /hpf (0-5)
--- NOTE | 2025-06-11 16:18 | History & Physical Report ---
Date of Service June 11, 2025 Assessment & Plan (1) Confusion with nonfocal neurological examination: (2) Type 2 diabetes mellitus with hyperglycemia: (3) Atrial fibrillation, permanent: (4) Chronic kidney disease, stage IV (severe): Plan In summary this is a 74-year-old female admitted for confusion without a focal neurologic deficit or findings concerning for vascular phenomenon #Confusion without focal neurologic deficit The patient presents with persistent and slightly progressive confusion with findings on exam concerning for potentially a primary psychiatric condition; at this time there is no clear nonpsychiatric cause; assessment in the emergency department has ruled out significant uremia, electrolyte abnormality, injury to the central nervous system, infectious etiologies; there is still pending a urine tox screen to rule out any sort of intoxication or potential withdrawal although the patient's presentation is not congruent with typical withdrawal syndromes; the absence of any focal neurologic deficits makes a central nervous system vascular phenomenon very unlikely, and the lack of acute change in her symptomatology also speaks against this Psychiatry consulted Continue with supportive care Chronic kidney disease, stage IV // atrial fibrillation Chronic conditions; no acute injury at this time; we will adjust the patient's Eliquis dose based on their GFR History of Present Illness Chief Complaint: Progressive confusion, pruritis Primary Care Provider: Adrian Leung Ms. Wood is a 74-year-old female whose active medical conditions include stage IV CKD secondary to hypertensive nephrosclerosis, permanent atrial fibrillation, hyperlipidemia among other chronic medical conditions who presented to the [facility] on 06/11 due to progressive confusion and itchiness. The patient's history is difficult to follow as they are tangential with her conversation and at times have difficulty completing a coherent thought. However assistance is noted from the patient's brother who is present as well as the ED provider who has access to additional documentation from [facility] where the patient was recently treated. It appears the patient was recently hospitalized at [facility] for choledocholithiasis that required cholecystectomy with potentially ERCP though this is not entirely clear. There was a concern at some point during this hospitalization the patient might have developed a CVA due to right facial weakness however this workup was unremarkable. In the interim since that hospitalization the patient has begun to develop persistent itchiness involving the entire body; the patient states that this is relatively constant, and does not know any alleviating factors. They have not had any recent changes to the laundry detergent, new linens, dietary changes or medication changes. The patient's brother further endorses concern of the patient's cognitive status with episodes of confusion, not necessarily including disorientation, but just not making usual sense with conversation. The patient denies any suicidal or homicidal ideation Allergies Allergy/AdvReac Type Severity Reaction Status Date / Time amoxicillin Allergy Intermediate RASH Verified 04/09/25 13:02 clavulanic acid Allergy Intermediate RASH Verified 04/09/25 13:02 ibuprofen Allergy Mild ITCHING Verified 04/09/25 13:02 Penicillins Allergy Mild ITCHING Verified 04/09/25 13:02 Home Medications Medication Instructions Recorded Confirmed Type albuterol sulfate 90 mcg/actuation 2 puffs inhalation Q6H PRN 04/16/19 04/09/25 History aerosol inhaler shortness of breath or wheezing hydroxyzine HCl 50 mg tablet 50 mg PO TID PRN itching 04/16/19 04/09/25 History paroxetine HCl 30 mg tablet 40 mg PO DAILY 06/22/21 04/09/25 History acetaminophen 650 mg 650 mg PO Q12H PRN Pain 12/27/21 04/09/25 History tablet,extended release atorvastatin 40 mg tablet 40 mg PO DAILY 12/27/21 04/09/25 History dextran 70-hypromellose (PF) 0.1 1 drp ophthalmic (eye) DAILY PRN 12/27/21 04/09/25 History %-0.3 % eye drops in a dropperette Other (Natural Tears (PF)) montelukast 10 mg tablet 10 mg PO DAILY 12/27/21 04/09/25 History multivitamin (Daily Multi-Vitamin 1 tab PO DAILY 12/27/21 04/09/25 History tablet) nystatin 100,000 unit/gram topical 1 applic topical DAILY PRN Other 12/27/21 04/09/25 History powder (Nyamyc) oxycodone 10 mg tablet 10 mg PO Q8H PRN Pain 12/27/21 04/09/25 History polyethylene glycol 3350 17 17 g PO DAILY PRN Constipation 12/27/21 04/09/25 History gram/dose oral powder (Miralax) mecobalamin (vitamin B12) 1,000 1,000 mcg PO DAILY 09/14/22 04/09/25 History mcg lozenges mirtazapine 30 mg tablet 30 mg PO QPM 09/14/22 04/09/25 History cholecalciferol (vitamin D3) 1 cap PO DAILY 09/06/23 04/09/25 History pantoprazole 40 mg tablet,delayed 40 mg PO DAILY #30 tabs 05/01/24 04/09/25 Rx release (Protonix) apixaban 5 mg tablet (Eliquis) 5 mg PO BID #180 tabs 01/01/25 04/09/25 Rx levocetirizine 5 mg tablet 5 mg PO DAILY 01/01/25 04/09/25 History vitamin B complex 1 tab PO DAILY 01/01/25 04/09/25 History bumetanide 1 mg tablet 1 mg PO DAILY edema #90 tabs 01/23/25 04/09/25 Rx calcitriol 0.5 mcg capsule 0.5 mcg PO DAILY #90 caps 04/09/25 04/09/25 Rx Past Med/Surg History Problem List (Updated 06/11/25 @ 16:42 by Chapincito Che DO) Confusion with nonfocal neurological examination Type 2 diabetes mellitus with hyperglycemia Essential hypertension Hypothyroidism Obstructive sleep apnea Chronic heart failure with preserved ejection fraction Chronic kidney disease, stage IV (severe) Iron deficiency anemia Atrial fibrillation, permanent (Chronic) Asthma (Chronic) Dyslipidemia (Chronic) correction (current) use of anticoagulants (Chronic) Medical History Choledocholithiasis Ground-level fall CKD (chronic kidney disease) stage 3, GFR 30-59 ml/min Vitamin B12 deficiency Uterine cancer Esophageal ulcer SBO (small bowel obstruction) Surgical History S/P RISHABH-BSO (total abdominal hysterectomy and bilateral salpingo-oophorectomy) S/P partial thyroidectomy S/P tonsillectomy S/p total knee replacement, bilateral S/P gastric bypass Open gastric bypass by Dr. Dietz 06/27/2010 S/P cataract surgery Family History Mother Lymphoma Social History Smoking Status: Never smoker Hx Alcohol Use: No Hx Substance Use: No Preferred Language: Dominican Communication Ability: Effective Transportation Clerk Required: No Beliefs That Will Affect Care: None Current Living Situation: Spouse Current Living Situation Comment: lives at home Feels Safe at Home: Yes Assistive Devices: Glasses Review of Systems Review of Systems: Review of constitutional, cardiovascular, pulmonary, gastrointestinal, genitourinary, neurologic, psychiatric, integumentary systems was unremarkable except for pertinent positive and negative findings discussed above Physical Exam Physical Exam: General: Elderly female in no acute distress Vital Signs: Reviewed HEENT: Moist mucous membranes Pulmonary: Symmetric chest wall excursion without restriction; clear to auscu ltation bilaterally Cardiovascular: Regular rate and rhythm without murmurs, rubs, or gallops; S1 and S2 normal; right radial pulse 2+ with no notable lower extremity edema Gastrointestinal: Soft, nondistended Neurologic: Cranial nerves II through XII grossly intact without discernible focal weakness no paresthesia Psychiatric: Oriented to self, place, time as well as circumstance; her speech is slightly pressured, at times with logorrhea; has difficulty with recalling accurate events that occurred at [facility] during her recent hospitalization there, however it does not appear to be confabulatory Skin: No obvious parasitosis; there are excoriations present secondary to the patient's itching Results & Data Results & Data Vital Signs (Past 12 Hours) Vital Signs Temp Pulse Pulse Resp BP BP Pulse Ox 06/11/25 15:47 83 20 142/70 H 100 06/11/25 15:22 79 06/11/25 15:15 21 06/11/25 15:06 75 19 06/11/25 14:40 89 19 133/86 96 06/11/25 14:05 97 06/11/25 13:54 94 06/11/25 13:42 36.8 C 90 18 145/71 H 97 O2 Del Method 06/11/25 15:47 Room Air 06/11/25 15:22 06/11/25 15:15 06/11/25 15:06 06/11/25 14:40 Room Air 06/11/25 14:05 Room Air 06/11/25 13:54 Room Air 06/11/25 13:42 Room Air Code Status & VTE Plan Code Status Full code VTE Prophylaxis Plan VTE Prophylaxis will be ordered: No Reason for no VTE drug order: Contraindicated PG Care Time/CCT Total # of Minutes Spent Total Time Spent with Patient: Total time spent is greater than 50% in coordination of care (as documented) at patient's floor/unit and/or counseling patient: Coding Level of Care Code 24174 INT INP/OBS CARE 2/MIN Diagnoses Confusion with nonfocal neurological examination R41.0 Type 2 diabetes mellitus with hyperglycemia, without long-term current use of insulin E11.65 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
[2025-06-11 17:54] LABS: Amphetamines+Metham, Urine Neg (Neg); MDMA (Ecstacy), Urine Neg (Neg); Marijuana, Urine Neg (Neg)
[2025-06-11] MEDS ORDERED: CARBOHYDRATES FOR HYPOGLYCEMIA PO PRN (20:33)
[2025-06-11] MEDS ORDERED: DEXTROSE 50% 50 ML SYRINGE IV PRN (20:33)
[2025-06-11] MEDS ORDERED: GLUCAGON FOR INJ 1 MG VIAL SQ PRN (20:33)
[2025-06-11] MEDS ORDERED: GLUCOSE 40% GEL 15 GM TUBE PO PRN (20:33)
[2025-06-11] MEDS ORDERED: GLUCOSE 10 TAB/TUBE PO PRN (20:33)
[2025-06-11] MEDS ORDERED: PHARMACY GLYCEMIC MGMT CONSULT PRN (20:33)
[2025-06-11] MEDS: INSULIN ASPART PER UNIT CHARGE SC SCH (21:24)
[2025-06-11] MEDS: APIXABAN 2.5 MG TAB PO SCH (22:14)
[2025-06-12] MEDS: LANTUS PER UNIT CHARGE SQ SCH (04:03)
[2025-06-12] MEDS ORDERED: INFLUENZA VACC TS2025-26(65y+)/PF (IIV3) 0.5mL Syr IM ONE (06:11)
--- NOTE | 2025-06-12 07:40 | Hospitalist Progress Note ---
Date of Service June 12, 2025 Assessment & Plan (1) Confusion with nonfocal neurological examination: (2) Type 2 diabetes mellitus with hyperglycemia: (3) Atrial fibrillation, permanent: (4) Chronic kidney disease, stage IV (severe): Plan In summary this is a 74-year-old female admitted for confusion without a focal neurologic deficit or findings concerning for vascular phenomenon #Confusion without focal neurologic deficit // Caregiver Burnout The patient presents with persistent and slightly progressive confusion with findings on exam concerning for potentially a primary psychiatric condition; at this time there is no clear nonpsychiatric cause; assessment in the emergency department has ruled out significant uremia, electrolyte abnormality, injury to the central nervous system, infectious etiologies; there is still pending a urine tox screen to rule out any sort of intoxication or potential withdrawal although the patient's presentation is not congruent with typical withdrawal syndromes; the absence of any focal neurologic deficits makes a central nervous system vascular phenomenon very unlikely, and the lack of acute change in her symptomatology also speaks against this. She does appear to be dealing with a large number of home stressors, especially as the primary caregiver for her who has multiple medical conditions resulting in significant lifestyle changes. This seems to have been going on for quite some time, so not consistent with an adjustment disorder, but may be somatic manifestation of significant socioeconomic stress Psychiatry consulted Continue with supportive care #Chronic kidney disease, stage IV // atrial fibrillation Chronic conditions; no acute injury at this time; we will adjust the patient's Eliquis dose based on their GFR Admission and Anticipated Discharge Date Admission Date: June 11, 2025 Subjective Ms. Wood is a 74-year-old female whose active medical conditions include stage IV CKD secondary to hypertensive nephrosclerosis, permanent atrial fibrillation, hyperlipidemia among other chronic medical conditions who presente d to the [facility] on 06/11 due to progressive confusion and itchiness. They were subsequently admitted due to concern of a primary psychiatric condition, and observation. No acute overnight events Review of Systems Review of Systems: Review of constitutional, cardiovascular, pulmonary, gastrointestinal, genitourinary, neurologic, psychiatric, integumentary systems was unremarkable except for pertinent positive and negative findings discussed above Physical Exam Physical Exam: General: Elderly female in no acute distress Vital Signs: Reviewed HEENT: Moist mucous membranes Pulmonary: Symmetric chest wall excursion without restriction; clear to auscultation bilaterally Cardiovascular: Regular rate and rhythm without murmurs, rubs, or gallops; S1 and S2 normal; right radial pulse 2+ with no notable lower extremity edema Gastrointestinal: Soft, nondistended Neurologic: Cranial nerves II through XII grossly intact without discernible focal weakness no paresthesia Psychiatric: Oriented to self, place, time as well as circumstance; her speech is less pressured compared to 06/11; has difficulty with recalling accurate events that occurred at [facility] during her recent hospitalization there, however it does not appear to be confabulatory Skin: No obvious parasitosis; there are excoriations present secondary to the patient's itching Results & Data Results & Data Vital Signs (Past 12 Hours) Vital Signs Temp Pulse Pulse Resp BP Pulse Ox O2 Del Method 06/12/25 07:03 36.4 C L 82 16 128/67 93 Room Air 06/12/25 00:30 36.7 C 94 H 16 156/68 H 99 Room Air 06/11/25 21:06 60 16 153/79 H 94 Room Air PG Care Time/CCT Total # of Minutes Spent Total Time Spent with Patient: Total time spent is greater than 50% in coordination of care (as documented) at patient's floor/unit and/or counseling patient: Coding Level of Care Code 24840 SUB INP/OBS CARE 2/35MIN Diagnoses Confusion with nonfocal neurological examination R41.0 Type 2 diabetes mellitus with hyperglycemia, without long-term current use of insulin E11.65 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
[2025-06-12] MEDS: POLYETHYLENE (MIRALAX) 17 GM PACK PO SCH (08:18)
[2025-06-12] MEDS: MONTELUKAST SODIUM 10 MG TABLET PO SCH (08:18)
[2025-06-12] MEDS: ATORVASTATIN 40 MG TAB PO SCH (08:18)
[2025-06-12] MEDS: APIXABAN 2.5 MG TAB PO ONE (09:56)
--- NOTE | 2025-06-12 12:32 | Electrocardiogram Report ---
Test Reason : Blood Pressure : */* mmHG Vent. Rate : 80 BPM Atrial Rate : 71 BPM P-R Int : * ms QRS Dur : 100 ms QT Int : 414 ms P-R-T Axes : * 47 -15 degrees QTcB Int : 477 ms Atrial fibrillation Nonspecific ST and T wave abnormality Prolonged QT Abnormal ECG When compared with ECG of 18-Mar-2025 18:07, Criteria for Inferior infarct are no longer Present Nonspecific T wave abnormality, worse in Anterior leads Confirmed by Michael Hughes ([id number]) on 06/12/2025 12:32:21 PM Referred By: REFERRED SELF Confirmed By: Michael Hughes
--- NOTE | 2025-06-12 12:37 | Pharmacy Report ---
Pharmacy Glycemic Sign Off Nt - Date of Service June 12, 2025 - Assessment & Plan ASSESSMENT: * Pharmacy was consulted by Dr Che on 06/11/25 for glycemic control and to write orders per [facility] inpatient glycemic control protocol. * Major changes made by pharmacy to antidiabetic regimen include: * addition of Novolog * Patient has been receiving/requiring minimal insulin for adequate glycemic control * BSGs ranging 93-129 mg/dl * Regimen has only required minor adjustments over the past 48hrs to achieve this level of control * Do not anticipate further changes in patient status that would quickly deteriorate glycemic control (i.e. patient to be NPO for upcoming procedure, steroids tapering, starting tube feedings, etc). PLAN FOR INPATIENT GLYCEMIC CONTROL: No changes needed to current regimen. * Hold basal insulin * Continue NovoLog per scale ACHS/Q6hrs while NPO * Goal range = 120-160 mg/dl * CF = 50 mg/dl/unit * CR = 1 unit for ever 25 g CHO consumed * Pharmacy is signing off of glycemic consult and will no longer be making adjustments to inpatient regimen. Please feel free to re-consult if needed. Thank you.
[2025-06-12] MEDS: diphenhydrAMINE 50 MG/ML VIAL IV STA (13:33)
[2025-06-12 17:58] LABS: Albumin Level 4.2 gm/dl (3.4-5.0); Anion Gap 15.0 (3-11); Blood Urea Nitrogen 53.0 mg/dl (6-23); Calcium 9.2 mg/dl (8.6-10.3); Carbon Dioxide 22.0 mmol/L (21-32); Chloride 102.0 mmol/L (98-107); Creatinine Clr Calc Pharmacy 6.6 ml/min; Glucose 106.0 mg/dl (70-99(Fasting)); Potassium 3.5 mmol/L (3.5-5.1); Sodium 139.0 mmol/L (136-145)
[2025-06-12] MEDS: APIXABAN 5 MG TABLET PO SCH (20:56)
[2025-06-12] MEDS: CETIRIZINE HCL 10 MG TABLET PO ONE (22:44)
--- NOTE | 2025-06-13 07:53 | Hospitalist Progress Note ---
Date of Service June 13, 2025 Assessment & Plan (1) Generalized pruritus: (2) Chorea: (3) Expressive aphasia: (4) Hyperphosphatemia due to chronic kidney disease: (5) Chronic kidney disease, stage IV (severe): (6) Type 2 diabetes mellitus with hyperglycemia: (7) Atrial fibrillation, permanent: Plan In summary this is a 74-year-old female admitted for confusion without a focal neurologic deficit or findings concerning for vascular phenomenon #Generalized pruritis // Chorea with associated aphasia // CKD stage IV with hyperphosphatemia Patient presenting with progressive and persistent generalized pruritus, and increased difficulty with word finding consistent with aphasia; she has been having adonis-like movements for many months now however they have recently worsened in the past 3 to 4 weeks; the patient does have a history of CKD stage IIIa however recently progressed to stage IV after hospitalization associated with choledocholithiasis at an outside hospital system, based on 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 and repeat assessment during her hospital stay here, it appears that she has had no recovery of renal function; the only laboratory evidence of this other than her creatinine is a persistent hyperphosphatemia which was first noted on outpatient laboratory assessment, assessment here on 06/13 was remarkable for a phosphate level of 6.7; though historically referred to as uremic pruritus, CKD associated pruritus is not exclusive to patients with hyperuricemia, suspect that the patient's hyperphosphatemia is likely contributing given the timeline of symptom onset and progression of her chronic kidney disease; may or may not be related to the patient's associated aphasia Start sevelamer carbonate 800 mg p.o. 3 times daily with meals There is no utility in daily reassessment of the patient's phosphate level, plan to reassess on 06/15 if she remains admitted at that time Neurology consulted regarding the patient's chorea and expressive aphasia #Recent complicated gastrointestinal surgery at outside hospital system Patient recently underwent a staged surgical and endoscopic procedure for choledocholithiasis at [facility]; her care there was discussed via telephone with Girma Gonzalez MD, who was personally involved with her care; he was informed of her current hospitalization, and concern of the remaining bypass-stent from the previously mentioned staged procedures; he agrees her current presentation is not related to this remaining stent, but informed this provider his office would contact the patient on 06/15 to schedule stent removal. This was conveyed to the patient Admission and Anticipated Discharge Date Admission Date: June 11, 2025 Subjective Ms. Wood is a 74-year-old female whose active medical conditions include stage IV CKD secondary to hypertensive nephrosclerosis, permanent atrial fibrillation, hyperlipidemia among other chronic medical conditions who presented to the [facility] on 06/11 due to progressive confusion and itchiness. They were subsequently admitted due to concern of a primary psychiatric condition, and observation. No acute overnight events; continues to have intermittent severe itching without identifiable cause, speech is minimally improved Review of Systems Review of Systems: Review of constitutional, cardiovascular, pulmonary, gastrointestinal, genitourinary, neurologic, psychiatric, integumentary systems was unremarkable except for pertinent positive and negative findings discussed above Physical Exam Physical Exam: General: Elderly female in no acute distress Vital Signs: Reviewed HEENT: Moist mucous membranes Pulmonary: Symmetric chest wall excursion without restriction; clear to auscultation bilaterally Cardiovascular: Regular rate and rhythm without murmurs, rubs, or gallops; S1 and S2 normal; right radial pulse 2+ with no notable lower extremity edema Gastrointestinal: Soft, nondistended Neurologic: Cranial nerves II through XII grossly intact without discernible focal weakness no paresthesia; chorea like movements involving the upper and lower extremities, and at times trunk; difficulty with word finding, without dysarthria or evidence of receptive aphasia Psychiatric: Oriented to self, place, time as well as circumstance Skin: No obvious parasitosis; there are excoriations present secondary to the patient's itching Results & Data Results & Data Vital Signs (Past 12 Hours) Vital Signs Temp Pulse Resp BP Pulse Ox O2 Del Method 06/13/25 07:21 36.4 C L 86 16 124/62 97 Room Air 06/12/25 22:52 36.6 C 89 18 125/57 L 94 Room Air PG Care Time/CCT Total # of Minutes Spent Total Time Spent with Patient: Total time spent is greater than 50% in coordination of care (as documented) at patient's floor/unit and/or counseling patient: Coding Level of Care Code 88263 SUB INP/OBS CARE 2/35MIN Diagnoses Generalized pruritus L29.9 Chorea G25.5 Expressive aphasia R47.01 Hyperphosphatemia due to chronic kidney disease E83.39; N18.9 Chronic kidney disease, stage IV (severe) N18.4 Type 2 diabetes mellitus with hyperglycemia, without long-term current use of insulin E11.65 Diabetes mellitus jersey knitter insulin use: without jersey knitter use Atrial fibrillation, permanent I48.21 (6) Type 2 diabetes mellitus with hyperglycemia Diabetes mellitus jersey knitter insulin use: without longterm use Qualified Code(s): E11.65 - Type 2 diabetes mellitus with hyperglycemia
[2025-06-13] MEDS: SEVELAMER CARBONATE 800 MG TAB PO SCH (08:36)
[2025-06-13] MEDS: diphenhydrAMINE 50 MG/ML VIAL IV STA ×2 (10:25→13:13)
--- NOTE | 2025-06-13 10:43 | Neurology Consultation ---
Date of Consultation June 13, 2025 (12PM) Assessment & Plan (1) Acute encephalopathy: Probable significant metabolic component [worsening renal insufficiency, plus potential vitamin deficiency components (vitamin B1 and vitamin D)]. Underlying chronic microvascular cerebrovascular disease (CVD) with current possible mild dehydration is probably also contributory. (2) Expressive aphasia: Probably largely related to metabolic encephalopathy and underlying CVD (plus mild dehydration). Can't exclude more recent small left subcortical/? thalamic region ischemic stroke, particularly with reported current mild right-sided sensory loss on neurological exam. 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 Can't completely exclude small left thalamic region ischemic stroke (small vessel/lacunar basis, not on any antiplatelet Rx), more so with current expressive aphasia plus mild right-sided sensory loss. (4) Cerebrovascular disease: Notable modest bihemispheric/subcortical chronic microvascular cerebrovascular disease (CVD) per current non-contrast CT(brain), which I personally reviewed. (5) H/O gastric bypass: Not taking her vitamin supplementation more recently per patient. (6) CKD (chronic kidney disease): Worsening renal insufficiency more recently. Current serum creatinine level was 7. (7) Biliary anastomotic stent embedded in GI tract: Has recently placed biliary stent, related to gallstones. Can reportedly undergo MRI study if necessary. Underwent cholecystectomy at [facility] approx. 3 weeks ago. (8) Vitamin D deficiency: Documented vitamin D level of 23 in April 2025. (9) A-fib: On therapeutic Eliquis anticoagulation at present. Plan 1. Recommended Thiamine Rx 100mg daily (initially IV) short-term. 2. Recommended vitamin D3 Rx 3541-5047 units PO daily. 3. Check serum thiamine and vitamin D levels prior to above supplementation. 4. IVFs short-term. 5. Check routine EEG study on Sunday, to assess for triphasic waves (would be indicative of significant metabolic encephalopathy), as well as assess for any subclinical epileptiform features. 6. Consider MRI(brain) with stroke protocol (to include SWI sequence), as well as non-contrast brain TOF MRA study for persistent significant encephalopathy/expressive aphasia despite above Rx. Caution with recent biliary stent, per her brother. 7. Continue therapeutic Eliquis Rx, with known atrial fibrillation. Hold on adding low-dose aspirin Rx 81mg daily at this point, unless a small acute/subacute thalamic ischemic stroke were noted on subsequent MRI(brain). 8. Periodic neuro checks per protocol. Appropriate seizure and fall precautions. 9. Consider speech therapy consult, from an expressive aphasia standpoint. 10. TeleNeurology follow-up visit for tomorrow will be scheduled. I discussed my above-described diagnostic impressions with patient and her brother, with expressed good understanding. Thank you for the TeleNeurology consult. If there are further questions or issues, please re-contact me. Total Time Spent: 128 minutes [58 minutes audio/video time; 70 minutes reviewing current/recent brain imaging studies, patient's EHR records and various other diagnostic study/lab results, coordinating care/phone discussion with hospitalist physician, plus documentation]. Gerardo Wise MD Telehealth Consultation Telehealth Information Telehealth Information: I performed this visit using a real-time telehealth connection between my location and the patients originating location ([facility]). After connecting through interactive tele-video, patient was identified by name and date of and/or wristband check.Patient (or authorized healthcare client care representative) was informed that this was a telemedicine visit and it was being conducted confidentially over secure lines. My office door was closed and no one else was present in the room with me.Patient (or authorized healthcare client care representative) provided consent to proceed with the visit, expressed an understanding of privacy and security of the telemedicine visit, and gave permission to have a hospital client care representative in the room in order to assist with the visit and to conduct portions of the visit, as needed. I informed the patient (or authorized healthcare client care representative) that I reviewed their record and presented the opportunity for them to ask any questions regarding the visit today. The patient agreed to participate. History of Present Illness Reason for Consultation: Acute encephalopathy, aphasia, and paroxysmal choreiform movements Requesting Physician: Chapincito Che DO Attending Physician: Chapincito Che DO History of Present Illness 74 year-old right-handed woman, admitted yesterday with increased confusion, paranoia, and prominent pruritis, per her brother. There have been no reported recent medication changes/adjustments. Her oral intake (liquids and food) may be suboptimal recently. On admission, her exam was notable cognitive dysfunction and rambling speech, but no reported focal sensorimotor deficits. There were also some scattered choreiform movements. Non-contrast CT(brain) didn't reveal any evident acute abnormalities/ICH. Of note, she has had more recent paroxysmal confusion, and was recently hospitalized at [facility] (few weeks ago), where she had a biliary stent placement plus cholecystectomy. There was reported increased confusion and expressive aphasia while hospitalized there, and diagnostic workup didn't reportedly reveal any evident acute ischemic stroke. She also suffered a modest closed head injury in late-February 2025, related to a fall at home. She has had more recent (past few months) progressive worsening renal insufficiency (baseline CKD), with recent serum creatinine of 7. She also has elevated serum phosphorus level. She hasn't received any dialysis thus far. She had gastric bypass surgery in 2009, and had been on appropriate vitamin supplementation; however, reports that she hasn't been taking her vitamin supplements more recently. She did also have low vitamin D level (23) in 2024. 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 From a stroke risk factor standpoint, she has known hypertension, diabetes mellitus, hyperlipidemia, and obstructive sleep apnea (KEYLA), as well as atrial fibrillation. She is on therapeutic Eliquis Rx (5mg bid). She isn't on any antiplatelet/aspirin Rx. Her brother was present for the TeleNeurology consult today, and helped to provide the above-described information. Allergies Allergy/AdvReac Type Severity Reaction Status Date / Time amoxicillin Allergy Intermediate RASH Verified 04/09/25 13:02 clavulanic acid Allergy Intermediate RASH Verified 04/09/25 13:02 ibuprofen Allergy Mild ITCHING Verified 04/09/25 13:02 Penicillins Allergy Mild ITCHING Verified 04/09/25 13:02 Home Medications Medication Instructions Recorded Confirmed Type albuterol sulfate 90 mcg/actuation 2 puffs inhalation Q6H PRN 04/16/19 06/11/25 History aerosol inhaler shortness of breath or wheezing hydroxyzine HCl 50 mg tablet 50 mg PO TID PRN itching 04/16/19 06/11/25 History paroxetine HCl 30 mg tablet 0 mg PO DAILY 06/22/21 06/11/25 History acetaminophen 650 mg 650 mg PO Q12H PRN Pain 12/27/21 06/11/25 History tablet,extended release atorvastatin 40 mg tablet 40 mg PO DAILY 12/27/21 06/11/25 History dextran 70-hypromellose (PF) 0.1 1 drp ophthalmic (eye) DAILY PRN 12/27/21 06/11/25 History %-0.3 % eye drops in a dropperette Other (Natural Tears (PF)) montelukast 10 mg tablet 0 mg PO DAILY 12/27/21 06/11/25 History multivitamin (Daily Multi-Vitamin 1 tab PO DAILY 12/27/21 06/11/25 History tablet) nystatin 100,000 unit/gram topical 1 applic topical DAILY PRN Other 12/27/21 06/11/25 History powder (Nyamyc) oxycodone 10 mg tablet 10 mg PO Q8H PRN Pain 12/27/21 06/11/25 History polyethylene glycol 3350 17 17 g PO DAILY PRN Constipation 12/27/21 06/11/25 History gram/dose oral powder (Miralax) mecobalamin (vitamin B12) 1,000 1,000 mcg PO DAILY 09/14/22 06/11/25 History mcg lozenges mirtazapine 30 mg tablet 30 mg PO QPM 09/14/22 06/11/25 History cholecalciferol (vitamin D3) 1 cap PO DAILY 09/06/23 06/11/25 History apixaban 5 mg tablet (Eliquis) 5 mg PO BID #180 tabs 01/01/25 06/11/25 Rx levocetirizine 5 mg tablet 0 mg PO DAILY 01/01/25 06/11/25 History vitamin B complex 1 tab PO DAILY 01/01/25 06/11/25 History calcitriol 0.5 mcg capsule 0.5 mcg PO DAILY #90 caps 04/09/25 06/11/25 Rx bumetanide 1 mg tablet 0 mg PO DAILY edema 06/11/25 06/11/25 History pantoprazole 40 mg tablet,delayed 0 mg PO DAILY 06/11/25 06/11/25 History release (Protonix) Patient History Medical History Choledocholithiasis Ground-level fall CKD (chronic kidney disease) stage 3, GFR 30-59 ml/min Vitamin B12 deficiency Uterine cancer Esophageal ulcer SBO (small bowel obstruction) Surgical History S/P RISHABH-BSO (total abdominal hysterectomy and bilateral salpingo-oophorectomy) S/P partial thyroidectomy S/P tonsillectomy S/p total knee replacement, bilateral S/P gastric bypass Open gastric bypass by Dr. 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 No reported recent bleeding problems/issues. Physical Exam Pleasant woman in no acute distress. She was alert and oriented x3. She had decreased attention/concentration. There was no evident dysarthria. There was a mild/modest expressive aphasia (notable word finding difficulty). She had rambling speech at times. There was also decreased comprehension, regarding following some simple verbal commands. There was no evident neurological/jordan- spatial neglect. There was decreased/poor memory regarding recent events. Visual patterson appeared full bilaterally. EOMs were intact, without any evident/notable nystagmus. She had normal eye closure and good lower facial strength. There was a mild right lower facial droop (reported prior right Bel l's palsy). There was mildly decreased right facial touch sensation. She had good bilateral UE and LE strength, with no evident downward limb drift with sustained elevation. She had normal (5/5) bilateral handgrip strength. There was no dystaxia with bilateral [id number] and [id number] testing. She had good bilateral hand/finger Shonna/dexterity. There was mildly decreased right UE/LE touch sensation when compared to the left side. There were occasional scattered choreiform movements, particularly notable in her right UE. There was no evident UE rest, action, or postural tremor. There was no evident overt seizure-type activity. She was able to stand without problems/assistance. Her gait wasn't assessed, but is reported fairly steady per nursing staff. Current NIHSS score is 2 [1 point for right lower facial droop and 1 point for expressive aphasia]. Results & Data Vital Signs (Past 12 Hours) Vital Signs Temp Pulse Resp BP Pulse Ox O2 Del Method 06/13/25 07:21 36.4 C L 86 16 124/62 97 Room Air 06/12/25 22:52 36.6 C 89 18 125/57 L 94 Room Air Laboratory Results Laboratory Results - last 24 hr 06/12/25 06/12/25 06/12/25 11:29 16:26 17:16 Sodium 139 Potassium 3.5 Chloride 102 Carbon Dioxide 22 Anion Gap 15 H BUN 53 H Creatinine 7.02 H* D Est Cr Clr Drug Dosing 6.6 eGFR 5.74 BUN/Creatinine Ratio 7.5 L Glucose 106 H POC Glucose 93 116 H Calcium 9.2 Phosphorus 6.3 H Albumin 4.2 06/12/25 06/13/25 20:51 07:48 Sodium Potassium Chloride Carbon Dioxide Anion Gap BUN Creatinine Est Cr Clr Drug Dosing eGFR BUN/Creatinine Ratio Glucose POC Glucose 121 H 95 Calcium Phosphorus Albumin Diagnostic Findings Chest X-Ray 06/11/25 14:05 XR chest 1V portable CLINICAL HISTORY: weakness COMPARISON STUDY: 03/02/2025 FINDINGS: Stable cardiomegaly without pulmonary vascular congestion. No consolidation or pleural effusion seen. No pneumothorax. Stable small nodule left midlung. IMPRESSION: No acute findings. Electronically signed by: Jonh Ventura M.D. 06/11/2025 2:[address] 06/11/25 14:33 CT head/brain wo con CLINICAL HISTORY: confusion. TECHNIQUE: Multiple axial CT images of the head were obtained without contrast. A dose lowering technique was utilized adhering to the principles of ALARA. CT DOSE: 703.85 mGy.cm COMPARISON: 03/18/2025 FINDINGS: No intracranial hemorrhage seen. No mass effect, midline shift, or hydrocephalus. Stable mild chronic small vessel ischemic changes. Visualized paranasal sinuses and mastoid air cells are clear. No skull fracture seen. IMPRESSION: No acute findings. Electronically signed by: Jonh Ventura M.D. 06/11/2025 3:46 PM Medications Administered Home Medications Medication Instructions Recorded Confirmed Last Taken albuterol sulfate 90 mcg/actuation 2 puffs inhalation Q6H PRN 04/16/19 06/11/25 Unknown aerosol inhaler shortness of breath or wheezing hydroxyzine HCl 50 mg tablet 50 mg PO TID PRN itching 04/16/19 06/11/25 Unknown paroxetine HCl 30 mg tablet 0 mg PO DAILY 06/22/21 06/11/25 Unknown acetaminophen 650 mg 650 mg PO Q12H PRN Pain 12/27/21 06/11/25 Unknown tablet,extended release atorvastatin 40 mg tablet 40 mg PO DAILY 12/27/21 06/11/25 Unknown dextran 70-hypromellose (PF) 0.1 1 drp ophthalmic (eye) DAILY PRN 12/27/2101/28 Unknown %-0.3 % eye drops in a dropperette Other (Natural Tears (PF)) montelukast 10 mg tablet 0 mg PO DAILY 12/27/21 06/11/25 Unknown multivitamin (Daily Multi-Vitamin 1 tab PO DAILY 12/27/21 06/11/25 Unknown tablet) nystatin 100,000 unit/gram topical 1 applic topical DAILY PRN Other 12/27/21 06/11/25 Unknown powder (Nyamyc) oxycodone 10 mg tablet 10 mg PO Q8H PRN Pain 12/27/21 06/11/25 Unknown polyethylene glycol 3350 17 17 g PO DAILY PRN Constipation 12/27/21 06/11/25 Unknown gram/dose oral powder (Miralax) mecobalamin (vitamin B12) 1,000 1,000 mcg PO DAILY 09/14/22 06/11/25 Unknown mcg lozenges mirtazapine 30 mg tablet 30 mg PO QPM 09/14/22 06/11/25 Unknown cholecalciferol (vitamin D3) 1 cap PO DAILY 09/06/23 06/11/25 Unknown apixaban 5 mg tablet (Eliquis) 5 mg PO BID #180 tabs 01/01/25 06/11/25 Unknown levocetirizine 5 mg tablet 0 mg PO DAILY 01/01/25 06/11/25 Unknown vitamin B complex 1 tab PO DAILY 01/01/25 06/11/25 Unknown calcitriol 0.5 mcg capsule 0.5 mcg PO DAILY #90 caps 04/09/25 06/11/25 Unknown bumetanide 1 mg tablet 0 mg PO DAILY edema 06/11/25 06/11/25 Unknown pantoprazole 40 mg tablet,delayed 0 mg PO DAILY 06/11/25 06/11/25 Unknown release (Protonix) Active Medications Generic Name Dose Route Start Last Admin Trade Name Lynn PRN Reason Stop Dose Admin Apixaban 5 mg 06/12/25 21:00 06/13/25 08:36 Apixaban 5 Mg Tablet PO 07/12/25 20:59 5 mg BID DAISY Administration Atorvastatin Calcium 40 mg 06/12/25 09:00 06/13/25 08:37 Atorvastatin 40 Mg Tab PO 07/12/25 08:59 40 mg DAILY DAISY Administration Insulin Aspart 0 units 06/11/25 21:00 06/13/25 08:31 Insulin Aspart Per Unit Charge SC 07/11/25 20:59 Not Given ACHS DAISY Montelukast Sodium 10 mg 06/12/25 09:00 06/13/25 08:37 Montelukast Sodium 10 Mg Tablet PO 07/12/25 08:59 10 mg DAILY DAISY Administration Pantoprazole Sodium 40 mg 06/12/25 09:00 06/13/25 08:37 Pantoprazole 40 Mg Tab PO 07/12/25 08:59 40 mg DAILY DAISY Administration Polyethylene Glycol 17 gm 06/12/25 09:00 06/13/25 08:37 Polyethylene (Miralax) 17 Gm Pack PO 07/12/25 08:59 17 gm DAILY DAISY Administration Sevelamer Carbonate 800 mg 06/13/25 08:00 06/13/25 08:36 Sevelamer Carbonate 800 Mg Tab PO 07/13/25 07:59 800 mg TIDM DAISY Administration
[2025-06-13] MEDS: FAMOTIDINE 20MG IV PUSH 20 MG/5 ML SYR IV SCH (15:13)
[2025-06-13] MEDS: LACTATED RINGER'S 1,000 ML IV SCH (15:15)
[2025-06-13] MEDS: THIAMINE HCL 300 MG in SODIUM CHLORIDE 0.9% 50 ML IV SCH (15:15)
[2025-06-13] MEDS: diphenhydrAMINE 50 MG/ML VIAL IV SCH (20:08)
--- NOTE | 2025-06-14 07:23 | Hospitalist Progress Note ---
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: (5) Chronic kidney disease, stage IV (severe): (6) Vitamin D deficiency: (7) H/O gastric bypass: Plan In summary this is a 74-year-old female admitted for confusion without a focal neurologic deficit or findings concerning for vascular phenomenon #Generalized pruritis // Chorea with associated aphasia // CKD stage IV with hyperphosphatemia // Multivitamin deficiency Patient presenting with progressive and persistent generalized pruritus, and increased difficulty with word finding consistent with aphasia; she has been having adonis-like movements for many months now however they have recently worsened in the past 3 to 4 weeks; the patient does have a history of CKD stage IIIa however recently progressed to stage IV after hospitalization associated with choledocholithiasis at an outside hospital system, 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 3 times daily with meals - Continue Benadryl and Pepcid IV twice daily for symptomatic control There is no utility in daily reassessment of the patient's phosphate level, plan to reassess on 06/15 - Continue Vitamin D and B1 supplementation Neurology consulted regarding the patient's chorea and expressive aphasia; anticipate EEG on 06/15, possible MRI/MRA without contrast #Recent complicated gastrointestinal surgery at outside hospital system Patient recently underwent a staged surgical and endoscopic procedure for choledocholithiasis at [facility]; her care there was discussed via telephone with Girma Gonzalez MD, who was personally involved with her care; he was informed of her current hospitalization, and concern of the remaining bypass-stent from the previously mentioned staged procedures; he agrees her current presentation is not related to this remaining stent, but informed this provider his office would contact the patient on 06/15 to schedule stent removal. This was conveyed to the patient Admission and Anticipated Discharge Date Admission Date: June 13, 2025 Subjective Ms. Wood is a 74-year-old female whose active medical conditions include stage IV CKD secondary to hypertensive nephrosclerosis, permanent atrial fibrillation, hyperlipidemia among other chronic medical conditions who presented to the [facility] on 06/11 due to progressive confusion and itchiness. They were subsequently admitted due to concern of a primary psychiatric condition, and observation. No acute overnight events; itchiness has improved some with medical management, though still with episodes of breakthrough Review of Systems Review of Systems: Review of constitutional, cardiovascular, pulmonary, gastrointestinal, ge nitourinary, neurologic, psychiatric, integumentary systems was unremarkable except for pertinent positive and negative findings discussed above Physical Exam Physical Exam: General: Elderly female in no acute distress Vital Signs: Reviewed HEENT: Moist mucous membranes Pulmonary: Symmetric chest wall excursion without restriction; clear to auscultation bilaterally Cardiovascular: Regular rate and rhythm without murmurs, rubs, or gallops; S1 and S2 normal; right radial pulse 2+ with no notable lower extremity edema Gastrointestinal: Soft, nondistended Neurologic: Cranial nerves II through XII grossly intact without discernible focal weakness no paresthesia; chorea like movements involving the upper and lower extremities, and at times trunk; difficulty with word finding, without dysarthria or evidence of receptive aphasia Psychiatric: Oriented to self, place, time as well as circumstance Skin: excoriations present secondary to the patient's itching Results & Data Results & Data Vital Signs (Past 12 Hours) Vital Signs Temp Pulse Resp BP Pulse Ox O2 Del Method 06/13/25 22:38 37.2 C 85 21 132/70 96 Room Air PG Care Time/CCT Total # of Minutes Spent Total Time Spent with Patient: Total time spent is greater than 50% in coordination of care (as documented) at patient's floor/unit and/or counseling patient: Coding Level of Care Code 80836 SUB INP/OBS CARE 2/35MIN Diagnoses Generalized pruritus L29.9 Chorea G25.5 Expressive aphasia R47.01 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
[2025-06-14] MEDS: CHOLECALCIFEROL 125 MCG (5,000 UNITS) TAB PO SCH (08:15)
--- NOTE | 2025-06-14 09:58 | Neurology Progress Note ---
Date of Service June 14, 2025 Assessment & Plan (1) Acute encephalopathy: (2) Expressive aphasia: (3) Chorea: (4) Vitamin D deficiency: (5) H/O gastric bypass: (6) Cerebrovascular disease: (7) Dyslipidemia: Plan Impression: 1-Acute encephalopathy. Word-finding difficulty (aphasia), no dysarthria, noted loss of train of thought and difficulty with abstract thinking. Etiology felt to be multifactorial in the setting of dehydration/metabolic related/vitamin D deficiency/potential thiamine deficiency. 2-pruritus 3-vitamin D deficiency/insufficiency 4-history of diabetes 5-history of hypertension and dyslipidemia 6- Biliary anastomotic stent embedded in GI tract: Has recently placed biliary stent, related to gallstones. Can reportedly undergo MRI study if necessary. Plan: - EEG study to be obtained 06/15. Looking for epileptiform/seizure discharges. Though this is a less likely but part of the differential of her encephalopathy. - MRI of the brain without contrast stroke protocol/MRI of the brain and neck looking for potential stroke/structural source for her encephalopathy. She does have risk factors for stroke/vascular source. Has recently placed biliary stent, related to gallstones. Can reportedly undergo MRI study if necessary. - Continue thiamine supplementation. Awaiting repeat level - Continue vitamin D supplementation -Continue anticoagulation - Neurology will continue to follow results of the testing above. Request consult for 06/15 with neurology Thank you for the teleneurology consultation. If there are further questions issues or concerns please recontact me. Total time spent was 60 minutes (40 minutes was spent with audio/video time; 20 minutes was spent reviewing brain imaging studies, patient EHR records/diagnostic studies, coordinating care, and documentation). Yobani Dillon MD Neurology Subjective Telehealth Information After establishing a telemedicine visit, patient was verified with two unique identifiers. Patient (or authorized healthcare communications representative) acknowledged consent and understanding and gave permission to continue telemedicine session. Nurse reports no new issues overnight. Patient states that itchiness better but Benadryl. Did have a full night sleep. Abnormal movements continue. Feels very itchy. Patient reports that she feels that she is speaking better. Follow-up neurological consult. Progress note. Seen via telehealth consultation 06/13/2025 The patient's prior medical records and recent admissions have been reviewed in detail by me prior to this evaluation Today feels less itchy Benadryl helping. Feels that speech is better. Nurse reports that patient slept all night. Feels that her speech is about the same. Continues with abnormal movements chorea like. Pain Management Follow Up Pain Regimen: Denies pain but does admit to severe itchiness responding to Benadryl. Review of Systems Feels fairly itchy. States that her speech is much improved. Denies any pain. Denies shortness of breath. Physical Exam Neurological examination reveals a pleasant woman in no distress. She was sitting at the edge of her bed I will ooking at the video monitor. There was good eye contact she was quite talkative but loses train of thought. She appears fairly restless and itchy and scratches all over. She is alert and oriented to place she knows the year and is able to tell me her date of with some cueing with the month. She does have some word finding difficulty and appears to struggle with staying focused during the conversation. She is noted to be aphasic given the word finding difficulty lack of abstract thinking. She is able to repeat very well she is able to read the stroke cards and is able to comprehend. There is no evident hemispatial neglect noted. I did not see a drift with arm extension [id number] testing or coordination was on target. There was a mild tremor noted. No other abnormal movements were noted except for some restlessness or chorea like movements specifically in her arms and legs. I did not see cranial nerve or facial asymmetry. Her speech was not dysarthric. I did not perceive upper extremity rest tremor or postural tremor. Gait was deferred for safety. Results & Data Vital Signs (Past 12 Hours) Vital Signs Temp Pulse Resp BP Pulse Ox O2 Del Method 06/14/25 07:26 36.7 C 90 16 161/71 H 100 Room Air 06/13/25 22:38 37.2 C 85 21 132/70 96 Room Air Laboratory Results Reviewed laboratory studies 25-hydroxy vitamin D low in the insufficiency range. Glucose levels were within range for this morning. Repeat B1 level was pending at the time of my evaluation. Diagnostic Findings Reviewed CT scan of the head which she had done upon admission. No acute intracranial abnormalities were seen. Medications Administered Reviewed medications. Patient obtaining Benadryl with improvement of pruritus. Reports no hallucinations on Benadryl.
--- NOTE | 2025-06-14 14:41 | Magnetic Resonance Report ---
MRI OF THE BRAIN WITHOUT IV CONTRAST CLINICAL HISTORY: Speech difficulties. Involuntary movements. Recent falls. COMPARISON STUDY: MRI of the brain May 21, 2012. Head CT June 11, 2025. TECHNIQUE: MRI of the brain was performed utilizing various T1 and T2-weighted sequences in the axial , sagittal, and coronal planes. IV contrast was not administered for this examination. FINDINGS: Brain parenchyma: There are no foci of restricted diffusion to suggest acute infarct. No acute intrac ranial hemorrhage, midline shift or mass effect is present. No intracranial masses are identified on unenhanced exam. Moderate white matter T2 hyperintense foci have progressed since MRI of May 21, 2012. These suggest small vessel disease. Ventricles, sulci, and cisterns: There is no hydrocephalus. The basal cisterns are patent. There are no extra-axial collections. Pituitary and sella: Unremarkable. Intracranial vasculature: Flow-voids for the major intracranial vessels are present. Orbits: Orbital contents are unremarkable. Sinuses and mastoids: Clear. Calvarium: No calvarial lesions are identified. Cervical cord: Partially visualized cervical spinal cord is normal in morphology and signal intensity . IMPRESSION: 1. No acute intracranial findings. 2. White matter T2 hyperintense foci suggestive of moderate small vessel disease. ACT 112: Negative or not required by law. Electronically signed by: Waldo Rosales M.D. 06/14/2025 2:38 PM
--- NOTE | 2025-06-14 14:42 | Magnetic Resonance Report ---
MRA OF THE INTRACRANIAL CIRCULATION WITHOUT CONTRAST CLINICAL HISTORY: Expressive aphasia, chorea. COMPARISON STUDY: MRI of the brain May 21, 2012. TECHNIQUE: Utilizing a 1.5 Letty magnet and 3-D [id number] technique, unenhanced MRA of the intra cranial circulation was obtained. FINDINGS: Please note that the MRI of the brain will be reported separately. The bilateral M1, M2, A1 and A2 segments are patent. There is no intracranial aneurysm. Posterior circulation is intact. No s ignificant stenoses are identified within the intracranial vessels. IMPRESSION: Unremarkable MRA of the head. ACT 112: Negative or not required by law. Electronically signed by: Waldo Rosales M.D. 06/14/2025 2:41 PM
[2025-06-14] MEDS: ACETAMINOPHEN 500 MG TAB PO PRN (16:49)
[2025-06-14] MEDS: diphenhydrAMINE 50 MG/ML VIAL IV STA (16:49)
[2025-06-14] MEDS ORDERED: diphenhydrAMINE Capsule 25 MG CAP PO SCH (21:00)
[2025-06-14] MEDS: diphenhydrAMINE Capsule 25 MG CAP PO ONE (21:21)
[2025-06-14] MEDS: NYSTATIN POWDER 15GM BTL EXT PRN (21:56)
--- NOTE | 2025-06-15 07:58 | Hospitalist Progress Note ---
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: (5) Chronic kidney disease, stage IV (severe): (6) Vitamin D deficiency: (7) H/O gastric bypass: Plan In summary this is a 74-year-old female admitted for confusion without a focal neurologic deficit or findings concerning for vascular phenomenon #Generalized pruritis // Chorea with associated aphasia // CKD stage IV with hyperphosphatemia // Multivitamin deficiency Patient presenting with progressive and persistent generalized pruritus, and increased difficulty with word finding consistent with aphasia; she has been having adonis-like movements for many months now however they have recently worsened in the past 3 to 4 weeks; the patient does have a history of CKD stage IIIa however recently progressed to stage IV after hospitalization associated with choledocholithiasis at an outside hospital system, based on recent review of 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 3 times daily with meals - Continue Benadryl and Pepcid IV twice daily for symptomatic control - Continue Vitamin D and B1 supplementation Neurology consulted regarding the patient's chorea and expressive aphasia #Recent complicated gastrointestinal surgery at outside hospital system Patient recently underwent a staged surgical and endoscopic procedure for choledocholithiasis at [facility]; her care there was discussed via telephone with Girma Gonzalez MD, who was personally involved with her care; he was informed of her current hospitalization, and concern of the remaining bypass-stent from the previously mentioned staged procedures; he agrees her current presentation is not related to this remaining stent, but informed this provider his office would contact the patient on 06/15 to schedule stent removal. This was conveyed to the patient Admission and Anticipated Discharge Date Admission Date: June 13, 2025 Subjective Ms. Wood is a 74-year-old female whose active medical conditions include stage IV CKD secondary to hypertensive nephrosclerosis, permanent atrial fibrillation, hyperlipidemia among other chronic medical conditions who presented to the [facility] on 06/11 due to progressive confusion and itchiness. They were subsequently admitted due to concern of a primary psychiatric condition, and observation. No acute overnight events; remains itchy and with speech difficulty, though these have improved somewhat compared to initial presentation Review of Systems Review of Systems: Review of constitutional, cardiovascular, pulmonary, gastrointestinal, genitourinary, neurologic, psychiatric, integumentary systems was unremarkable except for pertinent positive and negative findings discussed above Physical Exam Physical Exam: General: Elderly female in no acute distress Vital Signs: Reviewed HEENT: Moist mucous membranes Pulmonary: Symmetric chest wall excursion without restriction; clear to auscultation bilaterally Cardiovascular: Regular rate and rhythm without murmurs, rubs, or gallops; S1 and S2 normal; right radial pulse 2+ with no notable lower extremity edema Gastrointestinal: Soft, nondistended Neurologic: Cranial nerves II through XII grossly intact without discernible focal weakness no paresthesia; chorea like movements involving the upper and lower extremities, and at times trunk; difficulty with word finding, without dysarthria or evidence of receptive aphasia Psychiatric: Oriented to self, place, time as well as circumstance Skin: excoriations present secondary to the patient's itching Results & Data Results & Data Vital Signs (Past 12 Hours) Vital Signs Temp Pulse Resp BP Pulse Ox O2 Del Method 06/15/25 07:56 36.2 C L 86 16 137/63 99 Room Air 06/14/25 22:07 36.4 C L 77 20 145/73 H 98 Room Air 06/14/25 20:50 Room Air Laboratory Results Phosphorous 4.8 Diagnostic Findings EEG without epileptiform activity PG Care Time/CCT Total # of Minutes Spent Total Time Spent with Patient: Total time spent is greater than 50% in coordination of care (as documented) at patient's floor/unit and/or counseling patient: Coding Level of Care Code 50373 SUB INP/OBS CARE 2/35MIN Diagnoses Generalized pruritus L29.9 Chorea G25.5 Expressive aphasia R47.01 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
[2025-06-15 10:32] LABS: Albumin Level 3.5 gm/dl (3.4-5.0); Anion Gap 11.0 (3-11); Calcium 8.8 mg/dl (8.6-10.3); Carbon Dioxide 24.0 mmol/L (21-32); Chloride 106.0 mmol/L (98-107); Potassium 3.7 mmol/L (3.5-5.1); Sodium 141.0 mmol/L (136-145)
[2025-06-15 10:40] LABS: Blood Urea Nitrogen 49.0 mg/dl (6-23); Creatinine Clr Calc Pharmacy 7.6 ml/min; Glucose 107.0 mg/dl (70-99(Fasting))
--- NOTE | 2025-06-15 12:12 | Electroencephalogram ---
EEG Procedure Note Date of Service June 15, 2025 Start / End Times Start Time: 9:23 AM End Time: 9:43 AM Referring Physician Yane History Encephalopathy, evaluate for seizure activity Home Medication List Medication Instructions Recorded Confirmed Type albuterol sulfate 90 mcg/actuation 2 puffs inhalation Q6H PRN 04/16/19 06/11/25 History aerosol inhaler shortness of breath or wheezing hydroxyzine HCl 50 mg tablet 50 mg PO TID PRN itching 04/16/19 06/11/25 History paroxetine HCl 30 mg tablet 0 mg PO DAILY 06/22/21 06/11/25 History acetaminophen 650 mg 650 mg PO Q12H PRN Pain 12/27/21 06/11/25 History tablet,extended release atorvastatin 40 mg tablet 40 mg PO DAILY 12/27/21 06/11/25 History dextran 70-hypromellose (PF) 0.1 1 drp ophthalmic (eye) DAILY PRN 12/27/21 06/11/25 History %-0.3 % eye drops in a dropperette Other (Natural Tears (PF)) montelukast 10 mg tablet 0 mg PO DAILY 12/27/21 06/11/25 History multivitamin (Daily Multi-Vitamin 1 tab PO DAILY 12/27/21 06/11/25 History tablet) nystatin 100,000 unit/gram topical 1 applic topical DAILY PRN Other 12/27/21 06/11/25 History powder (Nyamyc) oxycodone 10 mg tablet 10 mg PO Q8H PRN Pain 12/27/21 06/11/25 History polyethylene glycol 3350 17 17 g PO DAILY PRN Constipation 12/27/21 06/11/25 History gram/dose oral powder (Miralax) mecobalamin (vitamin B12) 1,000 1,000 mcg PO DAILY 09/14/22 06/11/25 History mcg lozenges mirtazapine 30 mg tablet 30 mg PO QPM 09/14/22 06/11/25 History cholecalciferol (vitamin D3) 1 cap PO DAILY 09/06/23 06/11/25 History apixaban 5 mg tablet (Eliquis) 5 mg PO BID #180 tabs 01/01/25 06/11/25 Rx levocetirizine 5 mg tablet 0 mg PO DAILY 01/01/25 06/11/25 History vitamin B complex 1 tab PO DAILY 01/01/25 06/11/25 History calcitriol 0.5 mcg capsule 0.5 mcg PO DAILY #90 caps 04/09/25 06/11/25 Rx bumetanide 1 mg tablet 0 mg PO DAILY edema 06/11/25 06/11/25 History pantoprazole 40 mg tablet,delayed 0 mg PO DAILY 06/11/25 06/11/25 History release (Protonix) Inpatient Medication List Acetaminophen (Acetaminophen 500 Mg Tab) 1,000 mg PO Q8H PRN PRN Reason: pain Stop: 07/14/25 16:44 Last Admin: 06/14/25 16:49 Dose: 1,000 mg Documented By: MICHAEL Apixaban (Apixaban 5 Mg Tablet) 5 mg PO BID DAISY Stop: 07/12/25 20:59 Last Admin: 06/15/25 08:22 Dose: 5 mg Documented By: ROSE MARIE Admin: 06/14/25 20:47 Dose: 5 mg Documented By: cheryle Admin: 06/14/25 08:15 Dose: 5 mg Documented By: Admin: 06/13/25 20:08 Dose: 5 mg Documented By: Admin: 06/13/25 08:36 Dose: 5 mg Documented By: Admin: 06/12/25 20:56 Dose: 5 mg Documented By: LAURA Atorvastatin Calcium (Atorvastatin 40 Mg Tab) 40 mg PO DAILY DAISY Stop: 07/12/25 08:59 Last Admin: 06/15/25 08:23 Dose: 40 mg Documented By: ROSE MARIE Admin: 06/14/25 08:15 Dose: 40 mg Documented By: Admin: 06/13/25 08:37 Dose: 40 mg Documented By: Admin: 06/12/25 08:18 Dose: 40 mg Documented By: MICHAEL Diphenhydramine HCl (Diphenhydramine 50 Mg/Ml Vial) 25 mg IV BID DAISY Stop: 07/13/25 20:59 Last Admin: 06/15/25 08:22 Dose: 25 mg Documented By: ROSE MARIE Admin: 06/14/25 20:48 Dose: 25 mg Documented By: cheryle Admin: 06/14/25 08:59 Dose: 25 mg Documented By: Admin: 06/13/25 20:08 Dose: 25 mg Documented By: LAURA Thiamine HCl 300 mg/ Sodium (Chloride) 53 mls @ 210 mls/hr IV QAM DAISY Stop: 07/13/25 13:44 Last Infusion: 06/15/25 08:50 Dose: Infused Documented By: LR Admin: 06/15/25 08:23 Dose: 210 mls/hr Documented By: ROSE MARIE Infusion: 06/14/25 09:22 Dose: Infused Documented By: Admin: 06/14/25 09:06 Dose: 210 mls/hr Documented By: Infusion: 06/13/25 16:02 Dose: Infused Documented By: Admin: 06/13/25 15:15 Dose: 210 mls/hr Documented By: MICHAEL Lactated Ringer's (Lr) 1,000 mls @ 115 mls/hr IV .Q8H42M DAISY Stop: 06/16/25 13:44 Last Admin: 06/15/25 03:23 Dose: 115 mls/hr Documented By: HFTatyana Infusion: 06/15/25 02:50 Dose: Infused Documented By: Admin: 06/14/25 18:08 Dose: 115 mls/hr Documented By: Infusion: 06/14/25 17:41 Dose: Infused Documented By: AACarlee Admin: 06/14/25 08:59 Dose: 115 mls/hr Documented By: Infusion: 06/14/25 08:53 Dose: Infused Documented By: Admin: 06/14/25 00:11 Dose: 115 mls/hr Documented By: Infusion: 06/13/25 23:57 Dose: Infused Documented By: Admin: 06/13/25 15:15 Dose: 115 mls/hr Documented By: MICHAEL Famotidine (Pepcid 20mg Iv Push) 20 mg in 5 mls @ 2.5 mls/min IV Q12 DAISY Stop: 07/13/25 14:14 Last Admin: 06/15/25 08:22 Dose: 2.5 mls/min Documented By: ROSE MARIE Admin: 06/14/25 20:46 Dose: 2.5 mls/min Documented By: cheryle Admin: 06/14/25 08:59 Dose: 2.5 mls/min Documented By: AACarlee Admin: 06/13/25 20:08 Dose: 2.5 mls/min Documented By: Admin: 06/13/25 15:13 Dose: 2.5 mls/min Documented By: MICHAEL Insulin Aspart (Insulin Aspart Per Unit Charge) 0 units SC ACHS DAISY Stop: 07/11/25 20:59 Last Admin: 06/15/25 08:21 Dose: 1 units Documented By: ROSE MARIE Co-signed By: ROBBY Admin: 06/14/25 20:29 Dose: Not Given Documented By: bna Co-signed By: HFW Admin: 06/14/25 17:16 Dose: Not Given Documented By: [facility] Admin: 06/14/25 12:38 Dose: Not Given Documented By: [facility] Admin: 06/14/25 08:13 Dose: Not Given Documented By: [facility] Admin: 06/13/25 21:22 Dose: Not Given Documented By: LAURA Co-signed By: MARTHA Admin: 06/13/25 17:10 Dose: Not Given Documented By: HRB Co-signed By: BERHANE Admin: 06/13/25 12:57 Dose: Not Given Documented By: [facility] Admin: 06/13/25 08:31 Dose: Not Given Documented By: [facility] Admin: 06/12/25 22:45 Dose: Not Given Documented By: NCFabricio Admin: 06/12/25 17:30 Dose: Not Given Documented By: [facility] Admin: 06/12/25 12:43 Dose: Not Given Documented By: [facility] Admin: 06/12/25 07:59 Dose: Not Given Documented By: [facility] Admin: 06/11/25 21:24 Dose: 3 units Documented By: phan Co-signed By: lor Montelukast Sodium (Montelukast Sodium 10 Mg Tablet) 10 mg PO DAILY DAISY Stop: 07/12/25 08:59 Last Admin: 06/15/25 08:23 Dose: 10 mg Documented By: ROSE MARIE Admin: 06/14/25 08:15 Dose: 10 mg Documented By: [facility] Admin: 06/13/25 08:37 Dose: 10 mg Documented By: [facility] Admin: 06/12/25 08:18 Dose: 10 mg Documented By: [facility] Nystatin (Nystatin Powder 15gm Btl) 1 appln EXT Q6H PRN PRN Reason: Rash Stop: 07/14/25 21:04 Last Admin: 06/14/25 21:56 Dose: 1 appln Documented By: cheryle Pantoprazole Sodium (Pantoprazole 40 Mg Tab) 40 mg PO DAILY DAISY Stop: 07/12/25 08:59 Last Admin: 06/15/25 08:23 Dose: 40 mg Documented By: ROSE MARIE Admin: 06/14/25 08:15 Dose: 40 mg Documented By: Admin: 06/13/25 08:37 Dose: 40 mg Documented By: Admin: 06/12/25 08:55 Dose: 40 mg Documented By: MICHAEL Polyethylene Glycol (Polyethylene (Miralax) 17 Gm Pack) 17 gm PO DAILY DAISY Stop: 07/12/25 08:59 Last Admin: 06/15/25 08:22 Dose: 17 gm Documented By: ROSE MARIE Admin: 06/14/25 08:14 Dose: 17 gm Documented By: Admin: 06/13/25 08:37 Dose: 17 gm Documented By: Admin: 06/12/25 08:18 Dose: 17 gm Documented By: MICHAEL Sevelamer Carbonate (Sevelamer Carbonate 800 Mg Tab) 800 mg PO TIDM DAISY Stop: 07/13/25 07:59 Last Admin: 06/15/25 08:23 Dose: 800 mg Documented By: ROSE MARIE Admin: 06/14/25 17:17 Dose: 800 mg Documented By: Admin: 06/14/25 12:39 Dose: 800 mg Documented By: Admin: 06/14/25 08:15 Dose: 800 mg Documented By: Admin: 06/13/25 17:39 Dose: 800 mg Documented By: Admin: 06/13/25 12:58 Dose: 800 mg Documented By: Admin: 06/13/25 08:36 Dose: 800 mg Documented By: MICHAEL Vitamin D (Cholecalciferol 125 Mcg (5,000 Units) Tab) 125 mcg PO QAM DAISY Stop: 07/14/25 08:59 Last Admin: 06/15/25 08:23 Dose: 125 mcg Documented By: ROSE MARIE Admin: 06/14/25 08:15 Dose: 125 mcg Documented By: MICHAEL Discontinued Medications Apixaban (Apixaban 2.5 Mg Tab) 2.5 mg PO BID DAISY Stop: 07/11/25 20:59 Last Admin: 06/12/25 08:18 Dose: 2.5 mg Documented By: Admin: 06/11/25 22:14 Dose: 2.5 mg Documented By: phan Apixaban (Apixaban 2.5 Mg Tab) 2.5 mg PO ONE ONE Stop: 06/12/25 09:46 Last Admin: 06/12/25 09:56 Dose: 2.5 mg Documented By: MICHAEL Cetirizine HCl (Cetirizine Hcl 10 Mg Tablet) 10 mg PO NOW ONE Stop: 06/12/25 22:46 Last Admin: 06/12/25 22:44 Dose: 10 mg Documented By: TESS Diphenhydramine HCl (Diphenhydramine 50 Mg/Ml Vial) 50 mg IV NOW STA Stop: 06/12/25 12:46 Last Admin: 06/12/25 13:33 Dose: 50 mg Documented By: MICHAEL Diphenhydramine HCl (Diphenhydramine 50 Mg/Ml Vial) 25 mg IV NOW STA Stop: 06/13/25 09:57 Last Admin: 06/13/25 10:25 Dose: 25 mg Documented By: MICHAEL Diphenhydramine HCl (Diphenhydramine 50 Mg/Ml Vial) 25 mg IV NOW STA Stop: 06/13/25 13:00 Last Admin: 06/13/25 13:13 Dose: 25 mg Documented By: MICHAEL Diphenhydramine HCl (Diphenhydramine 50 Mg/Ml Vial) 25 mg IV NOW STA Stop: 06/14/25 16:42 Last Admin: 06/14/25 16:49 Dose: 25 mg Documented By: MICHAEL Diphenhydramine HCl (Diphenhydramine Capsule 25 Mg Cap) 25 mg PO NOW ONE Stop: 06/14/25 21:06 Last Admin: 06/14/25 21:21 Dose: 25 mg Documented By: KIMBERLY Hydroxyzine HCl (Hydroxyzine Hcl 25 Mg Tab) 25 mg PO NOW STA Stop: 06/14/25 03:55 Last Admin: 06/14/25 07:21 Dose: 25 mg Documented By: MICHAEL Famotidine (Pepcid 20mg Iv Push) 20 mg in 5 mls @ 2.5 mls/min IV NOW STA Stop: 06/11/25 14:33 Last Admin: 06/11/25 14:42 Dose: 2.5 mls/min Documented By: CAROLINE Sodium Chloride (Nss) 500 mls @ 999 mls/hr IV .Q31M ONE Stop: 06/11/25 15:24 Last Infusion: 06/11/25 16:05 Dose: Infused Documented By: phan Admin: 06/11/25 15:48 Dose: 999 mls/hr Documented By: phan Insulin Glargine (Lantus Per Unit Charge) 6 units SQ BID DAISY Stop: 07/11/25 20:59 Last Admin: 06/12/25 04:03 Dose: Not Given Documented By: LETY Methylprednisolone (Methylprednisolone 125 Mg/2 Ml Vial) 60 mg IV NOW STA Stop: 06/11/25 14:33 Last Admin: 06/11/25 14:41 Dose: 60 mg Documented By: CAROLINE Oxycodone HCl (Oxycodone Hcl Ir 5 Mg Tab (Immediate Release)) 5 mg PO NOW STA Stop: 06/12/25 03:40 Last Admin: 06/12/25 06:37 Dose: Not Given Documented By: LETY Oxycodone HCl (Oxycodone Hcl Ir 5 Mg Tab (Immediate Release)) Confirm Administered Dose 5 mg .ROUTE .STK-MED ONE Stop: 06/12/25 04:07 Last Admin: 06/12/25 04:07 Dose: 5 mg Documented By: LETY Description This is a 21 electrode EEG with a single channel dedicated to limited EKG. The electrodes were placed in accordance with the International 10-20 system. The background rhythm consists of generalized 4.5 to 5 Hz theta slowing that is observed throughout the study. Photic stimulation is unremarkable. Hyperventilation is not performed. There is intermittent frontal delta activity. There is a symmetric frontal beta rhythm. There is no focal or lateralized slowing. There are no epileptiform abnormalities. Interpretation Abnormal awake/drowsy EEG with evidence of a nonspecific encephalopathy. No epileptiform abnormalities observed. [facility] Procedure Codes Indication for Procedure (1) Acute encephalopathy: Neurology Neurology: 94441 EEG include record awake & drowsy
[2025-06-15] MEDS ORDERED: Nursing to Pharmacy Communication SCH (12:45)
[2025-06-15] MEDS: diphenhydrAMINE 50 MG/ML VIAL IV ONE (15:33)
--- NOTE | 2025-06-15 17:12 | Neurology Progress Note ---
Date of Service June 15, 2025 Assessment & Plan (1) Chorea: (2) Acute encephalopathy: (3) Generalized pruritus: (4) Chronic kidney disease, stage IV (severe): Plan 74-year-old female with a several month history of generalized pruritus, moderate chorea, occurring in the context of severe chronic kidney disease, recent cholecystectomy, chronic mild transaminitis, no known history of alcohol use disorder, no known family history of Amena's disease. Her encephalopa thy appears to be improved at this time, she is alert, oriented, and appropriate with intact memory, executive function, abstraction and social graces. She continues to exhibit generalized chorea which is of moderate severity, and continues to have generalized pruritus. Patient's recent brain MRI and EEG are fairly unrevealing. The MRI reveals only chronic cerebrovascular disease, the EEG a nonspecific encephalopathy, that again, he appears to be improved at this time. She could have acquired senile chorea, or possibly Non-Wilsonian hepatolenticular degeneration. I note that she had a normal copper level recently. Would check an up-to-date serum copper, ceruloplasmin, and urinary copper level to further exclude Rico's disease. Would also check a serum ammonia level. Amena's disease is probably unlikely given lack of any family history. Further, her MRI does not reveal significant caudate head atrophy, which I think would be more prominent in a 74-year-old with Huntingto n's disease. Her chorea may be metabolic, and due to chronic and progressive renal failure in the setting of chronic low-grade transaminitis. Further, she does not appear to be on any medications that would be an obvious cause of hyperkinetic movements or chorea. However, it is possible that oxycodone, mirtazapine, or paroxetine could be contributory. None of these medications appear on her current inpatient hospital list. She denies a history of heavy alcohol use, a vitamin B1 level is still pending. Because chorea is generally felt to be due to an overactivity of dopaminergic function in the basal ganglia (due to a variety of causes), pharmacologic treatment typically involves medications that have an element of dopaminergic antagonism such as tetrabenazine, deutetrabenazine, valbenazine, or antipsychotic medication such as olanzapine or risperidone. If symptomatic treatment of this patient's chorea is desired, would suggest starting with a trial of risperidone 0.5 mg daily for 3 days, then increase to 0.5 mg twice daily for 3 days, further dosage up titration can be made depending on response and tolerability. Deutetrabenazine (Austedo) and valbenazine (Ingrezza) are mor e preferable options although they are typically only available for tardive dyskinesia and [place]'s disease and require preauthorization and may not be available in the inpatient setting. Admission and Anticipated Discharge Date Admission Date: June 13, 2025 Subjective Follow-up regarding encephalopathy, chorea The patient is a 74-year-old female who complains of persistent generalized itching and abnormal spontaneous movements which have been present for many m onths. She has a history of chronic renal failure which has significantly escalated over the past few months as well as chronic mild transaminitis which has been present for several years. She is pleasant, appropriate, and generally restless appearing, exhibiting generalized choreiform movements, no athetosis. She did have a brain MRI completed yesterday, I independently reviewed these images, there is evidence of moderate chronic small vessel ischemic disease, and MRA of the head was unremarkable. An EEG completed this morning revealed generalized 4.5 to 5 Hz theta slowing suggestive of nonspecific encephalopathy, no epileptiform abnormalities. Results & Data Vital Signs (Past 12 Hours) Vital Signs Temp Pulse Resp BP Pulse Ox O2 Del Method 06/15/25 15:19 36.7 C 85 14 153/66 H 99 Room Air 06/15/25 07:56 36.2 C L 86 16 137/63 99 Room Air Laboratory Results Sodium 141, potassium 3.7, BUN 49, creatinine 6.14, glucose 107, calcium 8.8, phosphorus 4.8, albumin 3.5, vitamin B12 level from this past March was greater than 1500, TSH from June 11 was 3.974, thiamine level pending, serum copper level from April 01, 2025 was 108 Diagnostic Findings Electrocardiogram completed June 11, atrial fibrillation, 80 bpm Exam (Neuro) Constitutional: well developed; no acute distress Eyes: normal visual patterson by confrontation, PERRL and EOM intact bilaterally; no nystagmus Neurologic: Oriented to:: Person, Place and Time Memory: Remote Intact; negative Short Term Intact (2 out of 3 correct with delayed recall, 3 out of 3 correct with cueing) Attention: Span Intact and Concentration Intact Language: Naming Objects and Repeating Phrases Speech Fluency: negative Dysarthria or Dysfluency Speech Aphasia: negative Aphasia Fund of Knowledge: Current Events, Past History and Vocabulary Cranial Nerves: Normal II, III, IV, , V, VII, VIII, IX, X, XI and XII Motor Strength: Normal Lower Extremities and Normal Upper Extremities Motor Tone: Normal Lower Extremities and Normal Upper Extremities Muscle Bulk/Involuntary Movements: Action Tremor Sensation: Light Touch Intact and Pain/Temperature Intact Coordination: negative Limited Balance, Dysdiadochokinesia, Finger-Nose Abnormal or Heel-Díaz Abnormal Deep Tendon Reflexes: Rt Biceps: 2+, Lt Biceps: 2+, Rt Patellar: 2+ and Lt Patellar: 2+ Gait: Normal Station and Gait Details: Patient exhibits generalized chorea of moderate severity. She does not exhibit asterixis or myoclonus. PG Care Time/CCT Total # of Minutes Spent Total Time Spent with Patient: Total time spent is greater than 50% in coordination of care (as documented) at patient's floor/unit and/or counseling patient: Coding Level of Care Code 49829 SUB INP/OBS CARE 3/50MIN Diagnoses Chorea G25.5 Acute encephalopathy G93.40 Generalized pruritus L29.9 Chronic kidney disease, stage IV (severe) N18.4 Time Spent (min) 50 Comment Total time includes patient contact, chart review, counseling, note preparation
[2025-06-15] MEDS: MELATONIN 3 MG TAB PO PRN (20:35)
[2025-06-15] MEDS: FAMOTIDINE 20 MG TAB PO SCH (20:36)
[2025-06-15] MEDS ORDERED: LACTATED RINGER'S 1,000 ML IV SCH (21:00)
[2025-06-16 07:38] VITALS: BP 146/76; PULSE 88; RESP 18; TEMP 98.2; O2SAT 95
--- NOTE | 2025-06-16 16:18 | Discharge Summary ---
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 disease: (5) Chronic kidney disease, stage IV (severe): (6) Vitamin D deficiency: (7) H/O gastric bypass: Plan In summary this is a 74-year-old female admitted for confusion without a focal neurologic deficit or findings concerning for vascular phenomenon #Generalized pruritis // Chorea with associated aphasia // CKD stage IV with hyperphosphatemia // Multivitamin deficiency Patient presenting with progressive and persistent generalized pruritus, and increased difficulty with word finding consistent with aphasia; she has been having adonis-like movements for many months now however they have recently worsened in the past 3 to 4 weeks; the patient does have a history of CKD stage IIIa however recently progressed to stage IV after hospitalization associated with choledocholithiasis at an outside hospital system, based on recent review of her echo vascular technologist outpatient documentation and repeat assessment during her hospital stay here, it appears that she has had no recovery of renal function; further discussion with Neurology on 06/13, they have similar concern for metabolic cause of her current symptomatology, including vitamin deficiency from nonadherence with previously prescribed supplementation after bypass surgery Continue sevelamer carbonate 800 mg p.o. 3 times daily with meals - Continue Benadryl and Pepcid IV twice daily for symptomatic control - Continue Vitamin D and B1 supplementation Neurology consulted regarding the patient's chorea and expressive aphasia #Recent complicated gastrointestinal surgery at outside hospital system Patient recently underwent a staged surgical and endoscopic procedure for choledocholithiasis at [facility]; her care there was discussed via telephone with Girma Gonzalez MD, who was personally involved with her care; he was informed of her current hospitalization, and concern of the remaining bypass-stent from the previously mentioned staged procedures; he agrees her current presentation is not related to this remaining stent, but informed this provider his office would contact the patient on 06/15 to schedule stent removal. This was conveyed to the patient Admission HPI Per Admitting Provider Ms. Wood is a 74-year-old female whose active medical conditions include stage IV CKD secondary to hypertensive nephrosclerosis, permanent atrial fibrillation, hyperlipidemia among other chronic medical conditions who presented to the [facility] on 11/06 due to progressive confusion and itchiness. The patient's history is difficult to follow as they are tangential with her conversation and at times have difficulty completing a coherent thought. However assistance is noted from the patient's brother who is present as well as the ED provider who has access to additional documentation from [facility] where the patient was recently treated. It appears the patient was recently hospitalized at [facility] for choledocholithiasis that required cholecystectomy with potentially ERCP though this is not entirely clear. There was a concern at some point during this hospitalization the patient might have developed a CVA due to right facial weakness however this workup was unremarkable. In the interim since that hospitalization the patient has begun to develop persistent itchiness involving the entire body; the patient states that this is relatively constant, and does not know any alleviating factors. They have not had any recent changes to the laundry detergent, new linens, dietary changes or medication changes. The patient's brother further endorses concern of the patient's cognitive status with episodes of confusion, not necessarily including disorientation, but just not making usual sense with conversation. The patient denies any suicidal or homicidal ideation Discharge Exam General: Elderly female in no acute distress Vital Signs: Reviewed HEENT: Moist mucous membranes Pulmonary: Symmetric chest wall excursion without restriction; clear to auscultation bilaterally Cardiovascular: Regular rate and rhythm without murmurs, rubs, or gallops; S1 and S2 normal; right radial pulse 2+ with no notable lower extremity edema Gastrointestinal: Soft, nondistended Neurologic: Cranial nerves II through XII grossly intact without discernible focal weakness no paresthesia; chorea like movements involving the upper and lower extremities, and at times trunk; difficulty with word finding, without dysarthria or evidence of receptive aphasia Psychiatric: Oriented to self, place, time as well as circumstance Skin: excoriations present secondary to the patient's itching Discharge Plan Discharge Items Patient Disposition: Home - Self-Care Reason For Visit: PARANOIA, CONFUSION Discharge Diagnosis: CKD stage V with hyperphosphatemia and associated pruritis // Metabolic encephalopathy resulting in chorea and expressive aphasia Condition on Discharge: Fair Activity: Per Instructions section Non-emergency contact: Primary Care Provider, Surgeon and Speech Language Pathology Assistant Call non-emergency contact if: you have any medication questions and your symptoms worsen Follow-up/Referrals: Bernardino Knight DO [Physician] - Adrian Leung [Primary Care Provider] - Diet: Low Potassium (2gm) Fluids: 2000ml (8 cups) Addtl Attending Provider Instructions: You were admitted to the [facility] due to subacute metabolic encephalopathy resulting in chorea and expressive aphasia, in addition to generalized pruritis found to be associated with progressive chronic kidney disease. Regarding the presenting confusion (encephalopathy), after diagnostic testing and evaluation by Neurology, there is general agreement that this is consequential of progressive kidney disease as well as multiple vitamin and elemental deficiencies secondary to previous gastric bypass surgery. Our general recommendation is to continue with supplementation with a bariatric multivitamin. Common options include the following brands: Bariatric advantage, Celebrate ONE 45, Bariatric Multi Chewable with 45 mg Iron, among others. Per the [place] [employer], the recommend specific supplementation for Vitamin B1, B12, Folic acid, Iron, Vitamin D3, Vitamin A, Vitamin E, Vitamin K, Zinc, and Copper. The previously listed brands include these minimum recommended doses. We further recommend continued use of Sevelamer, a pill to control your phosphorous levels which have been persistently elevated as a likely consequence of recent progressive kidney disease. This will be sent to your pharmacy, and please follow instructions listed on the prescription for appropriate use of the medication. Finally, for symptomatic management of your pruritus which will take time to improve with the above management, a script has been sent to your pharmacy for both Benadryl and Pepcid. Pending Studies at Discharge: Yes (Serum Vitamin B1) Stand-Alone Forms: My [facility] Medications and DC Order Prescriptions: New sevelamer carbonate 800 mg Tablet 800 mg PO TIDM 30 Days Qty: 30 0RF famotidine 20 mg Tablet 20 mg PO BID 30 Days Qty: 60 0RF cholecalciferol (vitamin D3) 125 mcg (5,000 unit) Tablet 125 mcg PO QAM 30 Days Qty: 30 0RF diphenhydramine HCl [Benadryl] 25 mg capsule 25 mg PO TID 30 Days Qty: 90 0RF Continued atorvastatin 40 mg tablet 40 mg PO DAILY oxycodone 10 mg tablet 10 mg PO Q8H PRN (Reason: Pain) acetaminophen 650 mg tablet extended release 650 mg PO Q12H PRN (Reason: Pain) Patient Comments: 06/11- otc unable to verify Natural Tears (PF) 0.1-0.3 % dropperette 1 drp ophthalmic (eye) DAILY PRN (Reason: Other) Patient Comments: 06/11- otc unable to verify montelukast 10 mg tablet 0 mg PO DAILY Patient Comments: 06/11- no fill history unable to verify albuterol sulfate 90 mcg/actuation HFA aerosol inhaler 2 puffs inhalation Q6H PRN (Reason: shortness of breath or wheezing) Patient Comments: 06/11- no fill history unable to verify paroxetine HCl 30 mg tablet 0 mg PO DAILY Patient Comments: 06/11- last filled 02/02 90 day supply #90 original: 40 mg po daily mecobalamin (vitamin B12) 1,000 mcg lozenge 1,000 mcg PO DAILY Patient Comments: 06/11- otc unable to verify Rx Instructions: allow to dissolve in mouth OR may chew lightly before swallowing mirtazapine 30 mg tablet 30 mg PO QPM Eliquis 5 mg tablet 5 mg PO BID Qty: 180 3RF Hold Instructions: hold pantoprazole [Protonix] 40 mg tablet,delayed release (DR/EC) 0 mg PO DAILY Patient Comments: 06/11- last filled 02/12 90 day supply #90 bumetanide 1 mg tablet 0 mg PO DAILY Patient Comments: 06/11- last filled 01/23 90 day supply #90 Discontinued polyethylene glycol 3350 [Miralax] 17 gram/dose powder 17 g PO DAILY PRN (Reason: Constipation) Patient Comments: 06/11- otc unable to verify nystatin [Nyamyc] 100,000 unit/gram powder 1 applic topical DAILY PRN (Reason: Other) Patient Comments: 06/11- no fill history unable to verify multivitamin [Daily Multi-Vitamin] Tablet 1 tab PO DAILY Patient Comments: 06/11- otc unable to verify cholecalciferol (vitamin D3) 1 cap PO DAILY Patient Comments: 06/11- otc unable to verify hydroxyzine HCl 50 mg tablet 50 mg PO TID PRN (Reason: itching) calcitriol 0.5 mcg capsule 0.5 mcg PO DAILY Qty: 90 3RF levocetirizine 5 mg tablet 0 mg PO DAILY Patient Comments: 06/11- OTC/last filled 10/16 90 day supply #90 vitamin B complex Tablet 1 tab PO DAILY Patient Comments: 11/6- otc unable to verify Discharge Orders: Discharge Order (Routine); Ordered 06/16/25 Ordered By: Chapincito Che Admission Data Admit Date/Time: 06/13/25 13:35 Attending Provider: Chapincito Che Admit Provider: Chapincito Che Primary Care Provider: Adrian Leung Other Providers: Chapincito Che; Tank Joseph; Josiah Rachel; Nessa Gutierrez; Fabienne Heaton; Liliana Degroot Other Interventions: Discharge Summary Assessment (RN) Last Done: 06/16/25 08:50 Hospital Stay Data Consultations 06/11/25 15:54 ED Decision to Admit Stat 06/12/25 14:18 Consult Neurology Routine Diagnostic Imagining Performed 06/11/25 14:33 CT head/brain wo con Stat 06/14/25 09:35 MRI Angio Head [MR angio head wo con] Routine MRI Brain [MR brain wo con] Routine Pending Results Patient Have Any Pending Studies at Discharge: Yes (Serum Vitamin B1) Discharge Instructions Given to Patient (Per Discharging Provider) You were admitted to the [facility] due to subacute metabolic encephalopathy resulting in chorea and expressive aphasia, in addition to generalized pruritis found to be associated with progressive chronic kidney disease. Regarding the presenting confusion (encephalopathy), after diagnostic testing and evaluation by Neurology, there is general agreement that this is consequential of progressive kidney disease as well as multiple vitamin and elemental deficiencies secondary to previous gastric bypass surgery. Our general recommendation is to continue with supplementation with a bariatric multivitamin. Common options include the following brands: Bariatric advantage, Celebrate ONE 45, Bariatric Multi Chewable with 45 mg Iron, among others. Per the [place] [employer], the recommend specific supplementation for Vitamin B1, B12, Folic acid, Iron, Vitamin D3, Vitamin A, Vitamin E, Vitamin K, Zinc, and Copper. The previously listed brands include these minimum recommended doses. We further recommend continued use of Sevelamer, a pill to control your phosphorous levels which have been persistently elevated as a likely consequence of recent progressive kidney disease. This will be sent to your pharmacy, and please follow instructions listed on the prescription for appropriate use of the medication. Finally, for symptomatic management of your pruritus which will take time to improve with the above management, a script has been sent to your pharmacy for both Benadryl and Pepcid. Total Time Total Time Spent Total Time Spent (In Minutes): I personally spent 70 minutes in the coordination of today's discharge including bedside counselling, physical exam, medication reconciliation, and coordination of continued care in the outpatient setting with specialist recommendations Coding Level of Care Code 31054 INP/OBS DISCH >30 MIN Diagnoses Generalized pruritus L29.9 Chorea G25.5 Expressive aphasia R47.01 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
== END 2025-06-16 09:00 | disposition home or self-care (01) | DRG 71 ==
LOC: ED 13:37 → EDINP 13:37 → 3E 06-12 01:24